=== PATIENT | male | born 1970 | race Caucasian/White ===

== ENCOUNTER → 2016-10-09 | Outpatient (CLI) | payer BC ==
[~2016-10-09] MED LIST: ACET325T96 PO; ALPR1TAB3 PO; ASPI81TA28 PO; ATOR10TA88 PO; BUPR-102 PO; CARV3.122 PO; COEN100C15 PO; Farxiga PO; GLIM2TAB2 PO; GLIM4TAB2 PO; INSDGI SC; LANS30CA12 PO; LIRA18IN; LIRA18IN INJ; LSN20 PO; METF-384 PO; METF1000 PO; NVLGI/PEN SQ; ONDA4TAB10 SL; RIVA1.5T PO; WLL100 PO
== END | disposition home or self-care (01) ==
LOC: C.LABSPEC 10:49
PROVIDERS: ATTEND Family Medicine
DX: N39.0 Urinary tract infection, site not specified (principal)

== ENCOUNTER 2016-10-16 13:07 | Emergency (ER) | payer BC ==
[~2016-10-16] VITALS: Ht 182.9 cm; Wt 176.0 kg
[~2016-10-16 13:07] MED LIST changes: -ALPR1TAB3 PO; -ASPI81TA28 PO; -BUPR-102 PO; -CARV3.122 PO; -COEN100C15 PO; -Farxiga PO; -GLIM4TAB2 PO; -INSDGI SC; -LIRA18IN; -METF1000 PO; -NVLGI/PEN SQ; -ONDA4TAB10 SL; -RIVA1.5T PO
[2016-10-16 13:19] VITALS: TEMP 37.4; Ht 182.9 cm; Wt 176.0 kg
[2016-10-16] MEDS ORDERED: SODIUM CHLORIDE 0.9% 1000ML 1,000 ML IV STA (14:35)
[2016-10-16] MEDS ORDERED: HYDROmorphone INJ 1 MG/ML SYR IV STA (14:35)
[2016-10-16] MEDS ORDERED: KETOROLAC TROMETHAMINE 30 MG/ML VIAL IV STA (14:35)
[2016-10-16] MEDS ORDERED: ONDANSETRON INJ 2 MG/ML 2 ML VIAL IV STA (14:35)
[2016-10-16] MEDS ORDERED: OPTIRAY 320 IV PRN (14:45)
--- NOTE | 2016-10-16 15:00 | DIAGNOSTIC IMAGING REPORT ---
CHEST ONE VIEW PORTABLE CLINICAL HISTORY: Abdominal pain. COMPARISON STUDY: Chest radiograph March 09, 2015. FINDINGS: This exam is compromised by suboptimal penetration related to portable technique and body habitus. Cardiomediastinal silhouette is stable. There is no evidence of pulmonary edema. No consolidation is identified. No pneumothorax or pleural effusion is identified. IMPRESSION: No acute cardiopulmonary findings. Electronically signed by: Benedict Machuca M.D. 10/16/2016 2:59 PM Dictated Date/Time: 10/16/2016 2:58 PM
[2016-10-16 15:09] LABS: BASO % 0.2 %; BASO ABS # 0.02 K/uL (0-0.2); COMPLETE YES; EOS % 0.9 %; HEMATOCRIT 43.7 % (42-52); IG% 0.6 %; LYMPH ABS # 0.64 K/uL (1.2-3.4); MEAN CELL VOLUME 72.5 fL (80-100); MEAN CORPUSCULAR HGB CONC 33.2 g/dl (32-36); MEAN PLATELET VOLUME 9.4 fL (7.4-10.4); MONO % 2.7 %; NEUT % 90.6 %; PLATELET COUNT 267 K/uL (130-400); RED BLOOD COUNT 6.03 M/uL (4.7-6.1); WHITE BLOOD COUNT 12.74 K/uL (4.8-10.8)
[2016-10-16 15:31] LABS: ALT/SGPT 39 U/L (12-78); BLOOD UREA NITROGEN 18 mg/dl (7-18); BUN/CREATININE RATIO 21.4 (10-20); CALCIUM 8.5 mg/dl (8.5-10.1); CARBON DIOXIDE 22 mmol/L (21-32); CHLORIDE 101 mmol/L (98-107); CREATININE 0.83 mg/dl (0.60-1.40); GLUCOSE 239 mg/dl (70-99); POTASSIUM 4.4 mmol/L (3.5-5.1); SODIUM 136 mmol/L (136-145)
[2016-10-16 15:36] LABS: ALB/GLOB RATIO 0.8 (0.9-2); ALKALINE PHOSPHATASE 61 U/L (45-117); AST/SGOT 26 U/L (15-37)
--- NOTE | 2016-10-16 17:29 | EMERGENCY ROOM VISIT NOTE ---
History Report prepared by Maria Guadalupe: Arya Doan Under the Supervision of: Dr. Reynaldo Tapia M.D. First contact with patient: 14:30 Chief Complaint: ABDOMINAL PAIN Stated Complaint: ABD. PAIN Nursing Triage Summary: Abd pain, nausea, has been sick for approx a week. Had an IM Phenergan at [facility] office and sent here. PMH: DM History of Present Illness The patient is a 46 year old male who presents to the Emergency Room with complaints of waxing and waning diffuse abdominal pain beginning a few days ago. He notes having nausea with this abdominal pain. Source of History: patient Onset: a few days ago Position: abdomen Quality: other (diffuse abdominal pain) Timing: waxes/wanes Associated Symptoms: + nausea Review of Systems See HPI for pertinent positives & negatives. A total of 10 systems reviewed and were otherwise negative. Past Medical & Surgical Medical Problems: (1) Benign hypertension (2) Diabetes mellitus Family History Patient reports no known family medical history. Social History Smoking Status: Never Smoker Alcohol Use: none Marital Status: single Housing Status: lives alone Occupation Status: employed Current/Historical Medications Scheduled Atorvastatin (Lipitor), 10 MG PO HS Bupropion HCl (Bupropion HCl), 1 TAB PO BID Glimepiride (Glimepiride), 1 TAB PO BIDM Lansoprazole (Prevacid), 30 MG PO QAM Liraglutide (Victoza), 1.8 MG INJ HS Lisinopril (Lisinopril), 1 TAB PO QAM Metformin Hcl (Glucophage), 1,000 MG PO BID Ondasetron Odt (Zofran Odt), 4 MG SL Q6H Allergies Coded Allergies: Shellfish (Verified Allergy, Severe, SHORTNESS OF BREATH,SWELLING, 10/16/16) Penicillins (Verified Allergy, Unknown, UNKNOWN-WAS YRS AGO-HAS TAKEN AMOXICILLIN WITHOUT PROBLEM, 10/16/16) AMOXICILLIN RECENTLY WAS OKAY Physical Exam Vital Signs Date Time Temp Pulse Resp B/P Pulse Ox O2 Delivery O2 Flow Rate FiO2 10/16/16 18:49 112 19 128/91 95 10/16/16 18:40 112 19 128/91 95 Room Air 10/16/16 16:11 114 16 155/79 95 Room Air 10/16/16 15:47 116 10/16/16 13:19 37.4 109 20 165/105 95 Room Air Physical Exam CONSTITUTIONAL: Moderate painful nauseous distress. Morbidly obese. HEENT: No icterus, moist mucous membranes NECK: No meningismus, trachea is midline. CARDIOVASCULAR: Regular rate, normal perfusion RESPIRATORY: Unlabored breathing. Clear to auscultation. GASTROINTESTINAL: Mildly diffuse abdominal tenderness. GENITOURINARY: No flank tenderness MUSCULOSKELETAL: Full range of motion NEUROLOGIC: No acute gross focal deficits. PSYCHIATRIC: Normal affect SKIN: Normal for ethnicity. Medical Decision & Procedures ER Provider Diagnostic Interpretation: Radiology results as stated below per my review and radiologist interpretation. CHEST ONE VIEW PORTABLE FINDINGS: This exam is compromised by suboptimal penetration related to portable technique and body habitus. Cardiomediastinal silhouette is stable. There is no evidence of pulmonary edema. No consolidation is identified. No pneumothorax or pleural effusion is identified. IMPRESSION: No acute cardiopulmonary findings. Electronically signed by: Benedict Machuca M.D. 10/16/2016 2:59 PM Dictated Date/Time: 10/16/2016 2:58 PM ABDOMEN AND PELVIS CT WITH IV AND ORAL CONTRAST FINDINGS: Lung bases are clear. Mild fatty infiltration of liver. Spleen pancreas are unremarkable. Gallbladder is negative for distention. Kidneys enhance uniformly. No evidence for an obstructing urinary tract calculus. Bowel pattern is nonobstructive. The appendix is normal. IMPRESSION: Fatty infiltration of liver. Otherwise negative CT abdomen and pelvis Electronically signed by: Yadiel Daley M.D. 10/16/2016 5:55 PM Dictated Date/Time: 10/16/2016 5:53 PM Laboratory Results 10/16/16 14:55 Red Blood Count 6.03, Mean Corpuscular Volume 72.5, Mean Corpuscular Hemoglobin 24.0, Mean Corpuscular Hemoglobin Concent 33.2, Mean Platelet Volume 9.4, Neutrophils (%) (Auto) 90.6, Lymphocytes (%) (Auto) 5.0, Monocytes (%) (Auto) 2.7, Eosinophils (%) (Auto) 0.9, Basophils (%) (Auto) 0.2, Neutrophils # (Auto) 11.54, Lymphocytes # (Auto) 0.64, Monocytes # (Auto) 0.34, Eosinophils # (Auto) 0.12, Basophils # (Auto) 0.02 10/16/16 14:55 Test 10/16/16 14:55 White Blood Count 12.74 K/uL (4.8-10.8) Red Blood Count 6.03 M/uL (4.7-6.1) Hemoglobin 14.5 g/dL (14.0-18.0) Hematocrit 43.7 % (42-52) Mean Corpuscular Volume 72.5 fL (80-100) Mean Corpuscular Hemoglobin 24.0 pg (25-34) Mean Corpuscular Hemoglobin Concent 33.2 g/dl (32-36) Platelet Count 267 K/uL (130-400) Mean Platelet Volume 9.4 fL (7.4-10.4) Neutrophils (%) (Auto) 90.6 % Lymphocytes (%) (Auto) 5.0 % Monocytes (%) (Auto) 2.7 % Eosinophils (%) (Auto) 0.9 % Basophils (%) (Auto) 0.2 % Neutrophils # (Auto) 11.54 K/uL (1.4-6.5) Lymphocytes # (Auto) 0.64 K/uL (1.2-3.4) Monocytes # (Auto) 0.34 K/uL (0.11-0.59) Eosinophils # (Auto) 0.12 K/uL (0-0.5) Basophils # (Auto) 0.02 K/uL (0-0.2) RDW Standard Deviation 40.1 fL (36.4-46.3) RDW Coefficient of Variation 15.3 % (11.5-14.5) Immature Granulocyte % (Auto) 0.6 % Immature Granulocyte # (Auto) 0.08 K/uL (0.00-0.02) Anion Gap 13.0 mmol/L (3-11) Est Creatinine Clear Calc Drug Dose 182.0 ml/min Estimated GFR () 121.4 Estimated GFR (Non- 104.8 BUN/Creatinine Ratio 21.4 (10-20) Calcium Level 8.5 mg/dl (8.5-10.1) Total Bilirubin 0.5 mg/dl (0.2-1) Direct Bilirubin < 0.1 mg/dl (0-0.2) Aspartate Amino Transf (AST/SGOT) 26 U/L (15-37) Alanine Aminotransferase (ALT/SGPT) 39 U/L (12-78) Alkaline Phosphatase 61 U/L (45-117) Troponin I < 0.015 ng/ml (0-0.045) Total Protein 7.7 gm/dl (6.4-8.2) Albumin 3.5 gm/dl (3.4-5.0) Globulin 4.2 gm/dl (2.5-4.0) Albumin/Globulin Ratio 0.8 (0.9-2) Lipase 95 U/L (73-393) Labs reviewed by ED physician. Medications Administered Medications (Trade) Dose Ordered Sig/Alfonso Route Start Time Stop Time Status Last Admin Dose Admin Sodium Chloride (Nss 1000ml) 1,000 ml @ 0 mls/hr Q0M STAT IV 10/16/16 14:35 10/16/16 14:40 DC 10/16/16 15:15 999 MLS/HR Ondansetron HCl (Zofran Inj) 4 mg NOW STAT IV 10/16/16 14:35 10/16/16 14:40 DC 10/16/16 15:15 4 MG Ketorolac Tromethamine (Toradol Inj) 30 mg NOW STAT IV 10/16/16 14:35 10/16/16 14:40 DC 10/16/16 15:15 30 MG Hydromorphone HCl (Dilaudid Inj) 1 mg PRN STAT IV 10/16/16 14:35 10/16/16 14:40 DC 10/16/16 15:16 1 MG ECG Indication: abdominal pain Rate (beats per minute): 110 Rhythm: sinus tachycardia Findings: nonspecific-ST abn, no ectopy, other (normal interval) ED Course 1430: Past medical records reviewed. The patient was evaluated in room B11A. A complete history and physical examination was performed. 1435: Ordered Dilaudid Inj 1 mg IV, Toradol Inj 30 mg IV, Zofran Inj 4 mg IV, Zofran Inj 4 mg IV, and NSS 1,000 ml @ 0 mls/hr Wide Open IV. 1830: Upon reexamination the patient is doing well. I discussed results and treatment plan with the patient. He verbalizes agreement and understanding. The patient is ready for discharge. Medical Decision Differential diagnosis: Etiologies such as appendicitis, diverticulitis, PUD, biliary pathology, UTI, pancreatitis, obstruction, mesenteric ischemia, aortic pathology, infections, inflammatory bowel disease, renal colic, as well as others were entertained. 46-year-old presents to the emergency department for evaluation of diffuse abdominal discomfort today with nausea. He appears unwell but nontoxic and in mild distress. Screening evaluations including lab CAT scan negative for acute disease. Appeared comfortable on reexamination prior to discharge. Rx Zofran. Impression Primary Impression: Abdominal pain Scribe Attestation The scribe's documentation has been prepared under my direction and personally reviewed by me in its entirety. I confirm that the note above accurately reflects all work, treatment, procedures, and medical decision making performed by me. Departure Information Dispostion Home / Self-Care Prescriptions Ondasetron Odt (ZOFRAN ODT) 4 Mg Tab 4 MG SL Q6H for Nausea, #20 TAB Prov: Reynaldo Tapia MD 10/16/16 Referrals Italo López M.D. (PCP) Patient Instructions Abdominal Pain - [facility], [facility]
--- NOTE | 2016-10-16 17:57 | DIAGNOSTIC IMAGING REPORT ---
ABDOMEN AND PELVIS CT WITH IV AND ORAL CONTRAST CT DOSE: 2313.83 mGy.cm HISTORY: Pain abdominal pain TECHNIQUE: Multiaxial CT images of the abdomen and pelvis were performed following the use of intravenous and oral contrast. COMPARISON STUDY: 07/29/2013 FINDINGS: Lung bases are clear. Mild fatty infiltration of liver. Spleen pancreas are unremarkable. Gallbladder is negative for distention. Kidneys enhance uniformly. No evidence for an obstructing urinary tract calculus. Bowel pattern is nonobstructive. The appendix is normal. IMPRESSION: Fatty infiltration of liver. Otherwise negative CT abdomen and pelvis Electronically signed by: Yadiel Daley M.D. 10/16/2016 5:55 PM Dictated Date/Time: 10/16/2016 5:53 PM
[2016-10-16] MEDS ORDERED: ONDA4TAB10 SL (18:32)
[2016-10-16 18:49] VITALS: BP 128/91; PULSE 112; O2SAT 95
[2016-10-23] MEDS ORDERED: METF1000 PO (11:19)
[2016-11-28] MEDS ORDERED: GLIM4TAB2 PO (06:53)
[2016-11-28] MEDS ORDERED: METF-384 PO (06:53)
[2016-11-28] MEDS ORDERED: INSDGI SC (06:53)
[2016-11-28] MEDS ORDERED: CARV3.122 PO (06:53)
[2016-11-28] MEDS ORDERED: LIRA18IN (06:53)
[2016-11-28] MEDS ORDERED: Farxiga PO (06:53)
[2016-11-28] MEDS ORDERED: ASPI81TA28 PO (07:40)
[2016-11-28] MEDS ORDERED: COEN100C15 PO (07:40)
== END 2016-10-16 18:51 | disposition home or self-care (01) ==
LOC: C.EDB 13:20
DX: R10.9 Unspecified abdominal pain (principal); R11.0 Nausea; R00.0 Tachycardia, unspecified; I10 Essential (primary) hypertension; E11.9 Type 2 diabetes mellitus without complications; Z79.84 Long term (current) use of oral hypoglycemic drugs; Z79.899 Other long term (current) drug therapy; Z88.0 Allergy status to penicillin; Z91.018 Allergy to other foods

== ENCOUNTER → 2016-10-17 | Outpatient (CLI) | payer BC ==
[~2016-10-17] MED LIST changes: -ACET325T96 PO; +ALPR1TAB3 PO; +ASPI81TA28 PO; +BUPR-102 PO; +CARV3.122 PO; +COEN100C15 PO; +Farxiga PO; +GLIM4TAB2 PO; +INSDGI SC; +LIRA18IN; +METF1000 PO; +NVLGI/PEN SQ; +ONDA4TAB10 SL; +RIVA1.5T PO
[2016-10-17 19:06] LABS: BASO % 0.2 %; BASO ABS # 0.02 K/uL (0-0.2); COMPLETE YES; EOS % 0.5 %; HEMATOCRIT 40.3 % (42-52); IG% 0.7 %; LYMPH % 12.1 %; LYMPH ABS # 1.03 K/uL (1.2-3.4); MEAN CELL VOLUME 73.3 fL (80-100); MEAN CORPUSCULAR HEMOGLOBIN 23.8 pg (25-34); MEAN CORPUSCULAR HGB CONC 32.5 g/dl (32-36); MEAN PLATELET VOLUME 9.5 fL (7.4-10.4); MONO % 2.4 %; NEUT % 84.1 %; PLATELET COUNT 219 K/uL (130-400); WHITE BLOOD COUNT 8.48 K/uL (4.8-10.8)
[2016-10-17 19:47] LABS: ALB/GLOB RATIO 0.8 (0.9-2); ALKALINE PHOSPHATASE 82 U/L (45-117); ALT/SGPT 32 U/L (12-78); AST/SGOT 23 U/L (15-37); BLOOD UREA NITROGEN 14 mg/dl (7-18); BUN/CREATININE RATIO 15.3 (10-20); CALCIUM 7.7 mg/dl (8.5-10.1); CARBON DIOXIDE 24 mmol/L (21-32); CHLORIDE 101 mmol/L (98-107); CREATININE 0.91 mg/dl (0.60-1.40); GLUCOSE 356 mg/dl (70-99); POTASSIUM 4.5 mmol/L (3.5-5.1); SODIUM 135 mmol/L (136-145)
== END | disposition home or self-care (01) ==
LOC: C.LAB 18:05
PROVIDERS: ATTEND Family Medicine
DX: R94.31 Abnormal electrocardiogram [ECG] [EKG] (principal)

== ENCOUNTER → 2016-10-18 | Outpatient (CLI) | payer BC ==
[~2016-10-18] MED LIST changes: +OPTIRAY 320 IV PRN
--- NOTE | 2016-10-18 14:00 | DIAGNOSTIC IMAGING REPORT ---
CT ANGIOGRAM OF THE CHEST CLINICAL HISTORY: Shortness of breath, positive d-dimer, DVT. COMPARISON STUDY: Chest x-ray dated to 70 TECHNIQUE: Following the IV administration of 104 mL of Optiray-320, CT angiogram of the thorax was performed from the thoracic inlet to the lung bases utilizing the pulmonary embolus protocol. Images are reviewed in the axial, sagittal, and coronal planes. IV contrast was administered without complication. MIP imaging was performed. CT DOSE: 664.66 mGy.cm FINDINGS: No pathologically enlarged axillary mediastinal or hilar lymph nodes were visualized. There was no evidence of thoracic aortic dilatation. Pulmonary arterial opacification is somewhat limited due to the patient's large body habitus. There are no pulmonary artery filling defects to indicate acute pulmonary embolism. There are few tiny pulmonary nodules, several of which are calcified. No pleural effusions are visualized. There was no evidence of focal pulmonary consolidation. IMPRESSION: 1. Somewhat limited pulmonary arterial opacification due to the patient's large body habitus. No central emboli identified. Correlation with serial leg ultrasonography would seem prudent. 2. No evidence of focal pulmonary consolidation 3. No evidence of pathologic adenopathy 4. Hepatic steatosis Electronically signed by: Tay Nunez M.D. 10/18/2016 1:59 PM Dictated Date/Time: 10/18/2016 1:48 PM
--- NOTE | 2016-10-18 14:28 | DIAGNOSTIC IMAGING REPORT ---
BILATERAL LOWER EXTREMITY VENOUS DOPPLER CLINICAL HISTORY: Dyspnea. Elevated d-dimer. COMPARISON STUDY: No previous studies for comparison. TECHNIQUE: Sonography of the deep venous system of the bilateral lower extremities was performed. Compression and augmentation were evaluated. FINDINGS: The bilateral common femoral, superficial femoral and popliteal veins were compressible. Augmentation was normal. Flow was shown within the deep calf vessels. IMPRESSION: No evidence of deep venous thrombus within the bilateral lower extremities. Electronically signed by: Benedict Machuca M.D. 10/18/2016 2:26 PM Dictated Date/Time: 10/18/2016 2:26 PM
== END | disposition home or self-care (01) ==
LOC: C.CTS 13:00
PROVIDERS: ATTEND Family Medicine
DX: I26.99 Other pulmonary embolism without acute cor pulmonale (principal); R06.02 Shortness of breath; K76.0 Fatty (change of) liver, not elsewhere classified

== ENCOUNTER 2016-10-22 14:48 | Inpatient (IN) | payer BC ==
[~2016-10-22] VITALS: Ht 182.9 cm; Wt 170.3 kg
[~2016-10-22 14:48] MED LIST changes: -ALPR1TAB3 PO; -ASPI81TA28 PO; -BUPR-102 PO; -CARV3.122 PO; -COEN100C15 PO; -Farxiga PO; -GLIM4TAB2 PO; -INSDGI SC; -LIRA18IN; -METF1000 PO; -NVLGI/PEN SQ; -RIVA1.5T PO
[2016-10-22 16:01] VITALS: BP 119/87; PULSE 80; TEMP 36.8; O2SAT 99; BMI 50.3; BMI 51.9
[2016-10-22] MEDS ORDERED: ALPR1TAB3 PO (16:08)
[2016-10-22] MEDS ORDERED: RIVA1.5T PO (16:08)
[2016-10-22] MEDS ORDERED: NVLGI/PEN SQ (16:08)
[2016-10-22] MEDS ORDERED: BUPR-102 PO (16:08)
[2016-10-22] MEDS ORDERED: NITROGLYCERIN 0.4 MG SL PER TAB CHARGE SL PRN (16:45)
--- NOTE | 2016-10-22 17:04 | History and Physical ---
History & Physical Date & Time of Service: Oct 22, 2016 at 16:04 Chief Complaint: Unstable Angina Primary Care Physician: Italo López M.D. History of Present Illness 46 yo M pmh KEVIN not using a CPAP, HTN, T2DM recently started on insulin for uncontrolled hyperglycemia, hypercholesterolemia, and morbid obesity sent in from his PCP (Dr. López) for left-sided chest pain radiating to left should and associated with SOB, diaphoresis, palpitation. Patient was recently in the ED for abdominal pain and nausea on 10/16/16 with an unrevealing work-up that included unremarkable CXR, negative CTA of chest and venous dopplers. EKG at that time revealed tachycardia with an age indeterminate anterolateral TX. Patient was subsequently discharged from the ED and followed up at his PCP the next day where a Ddimer was found to be elevated. He was then started on Xarelto. Since then, he has had worsening SOB. Last night, while walking around the grocery store, he had exertional dyspnea requiring frequent stops. He also experienced left-sided chest pain radiating to left shoulder associated with sob , headache, diaphoresis and palpitation. He also had CPs all throughout the day today, at its worst 5/10, intermittent, nagging heaviness. He is chest-pain free during the exam but does report SOB. Otherwise, no further abdominal pain. He did report one episode of blood per rectum last week but attributed to his hemorrhoids. No urinary symptoms. Past Medical/Surgical History PMH: T2DM x 10 years recently started on insulin, HTN x10 years, KEVIN (unable to tolerate CPAP), anxiety, dyslipidemia PSh: none Medical Problems: (1) Benign hypertension Status: Chronic (2) Diabetes mellitus Status: Chronic Family History Patient reports no known family medical history. FHx: - maternal grandfather: [place] in 60s, DM - Mother: breast and thyroid cancer - Father: DM, HTN Social History Smoking Status: Never Smoker Alcohol Use: none Drug Use: none Marital Status: single Occupational Status: employed Immunizations History of Influenza Vaccine: Yes Allergies Coded Allergies: Shellfish (Verified Allergy, Severe, SHORTNESS OF BREATH,SWELLING, 10/16/16) Penicillins (Verified Allergy, Unknown, UNKNOWN-WAS YRS AGO-HAS TAKEN AMOXICILLIN WITHOUT PROBLEM, 10/16/16) AMOXICILLIN RECENTLY WAS OKAY Home Medications Scheduled Alprazolam (Xanax), 1 MG PO HS Atorvastatin (Lipitor), 10 MG PO HS Bupropion Hcl (Smoking [place] (Bupropion Hcl Sr), 1 TAB PO BID Glimepiride (Glimepiride), 1 TAB PO BIDM Insulin Aspart (Novolog Flexpen), 12 UNITS SQ TID Lansoprazole (Prevacid), 30 MG PO QAM Lisinopril (Lisinopril), 1 TAB PO QAM Rivaroxaban (Xarelto), 15 MG PO BID Review of Systems ROS as per HPI. Rest of ROS negative. Physical Exam NAD, AOx3, intermittently stops conversation to catch breath distant heart sounds due to body habitus, S1 S2 noted, no murmurs appreciable ctab no wheezing/rhonchi/rales appreciated, tattoo noted in back abd obese, soft, nt/nd, +BS, unable to assess for organomegaly with body habitus No LE edema CN 2-12 grossly intact without facial drooping or focal deficits Impression Assessment and Plan 1. Chest pain - typical, possibly UA - serial CE - EKG now - cbc, cmp, mag - cardiology consult - 2de - O2 supplementation - starting heparin drip 2. T2DM - hold outpatient meds - has been uncontrolled - will start on insulins, glycemic consult 3. HTN - monitor vitals - cont lisinopril for now 4. Dyslipidemia - resume atorvastatin Level of Care Telemetry Resuscitation Status FULL RESUSCITATION VTE Prophylaxis VTE Risk Assessment Done? Y/N: Yes
[2016-10-22] MEDS ORDERED: PHARMACY GLYCEMIC MGMT CONSULT SCH (17:24)
[2016-10-22 17:37] LABS: BASO % 0.6 %; BASO ABS # 0.06 K/uL (0-0.2); EOS % 1.9 %; HEMATOCRIT 38.6 % (42-52); IG% 1.5 %; LYMPH % 28.1 %; MEAN CELL VOLUME 70.8 fL (80-100); MEAN CORPUSCULAR HEMOGLOBIN 23.5 pg (25-34); MEAN PLATELET VOLUME 8.8 fL (7.4-10.4); MONO % 5.5 %; NEUT % 62.4 %; PLATELET COUNT 267 K/uL (130-400); RED BLOOD COUNT 5.45 M/uL (4.7-6.1); WHITE BLOOD COUNT 9.61 K/uL (4.8-10.8)
[2016-10-22] MEDS ORDERED: DEXTROSE 50% 50 ML SYR IV PRN (17:45)
[2016-10-22] MEDS ORDERED: GLUCAGON FOR INJ 1 MG VIAL SQ PRN (17:45)
[2016-10-22] MEDS ORDERED: GLUCOSE 40% GEL 15 GM TUBE PO PRN (17:45)
[2016-10-22] MEDS ORDERED: GLUCOSE 10 TABS/TUBE PO PRN (17:45)
[2016-10-22 17:48] LABS: COMPLETE YES; MEAN CORPUSCULAR HGB CONC 33.2 g/dl (32-36)
[2016-10-22 17:51] LABS: PROTHROMBIN TIME (PATIENT) 10.8 SECONDS (9.0-12.0)
[2016-10-22] MEDS: INSULIN ASPART 100 UNITS/ML 3 ML PEN SC SCH ×2 (18:00→21:04)
[2016-10-22 18:06] LABS: ALB/GLOB RATIO 0.9 (0.9-2); ALKALINE PHOSPHATASE 80 U/L (45-117); ALT/SGPT 32 U/L (12-78); AST/SGOT 15 U/L (15-37); BLOOD UREA NITROGEN 13 mg/dl (7-18); BUN/CREATININE RATIO 14.5 (10-20); CALCIUM 8.6 mg/dl (8.5-10.1); CARBON DIOXIDE 24 mmol/L (21-32); CHLORIDE 103 mmol/L (98-107); CREATININE 0.87 mg/dl (0.60-1.40); GLUCOSE 278 mg/dl (70-99); MAGNESIUM 1.8 mg/dl (1.8-2.4); POTASSIUM 3.7 mmol/L (3.5-5.1); SODIUM 139 mmol/L (136-145)
[2016-10-22] MEDS ORDERED: HEPARIN IV BOLUS 9,000 UNIT in SYRINGE 0 ML IV ONE (19:45)
[2016-10-22 19:50] VITALS: BP 170/84; PULSE 72; TEMP 36.8; O2SAT 96
--- NOTE | 2016-10-22 19:54 | DIAGNOSTIC IMAGING REPORT ---
TWO VIEW CHEST CLINICAL HISTORY: Dyspnea. FINDINGS: PA and lateral chest radiographs are compared to study dated 10/16/16 and correlated with chest CT dated 10/18/16. The examination is degraded by large body habitus. The cardiomediastinal silhouette is unremarkable. The lungs and pleural spaces are clear. There is no pneumothorax. The skeletal structures appear osteopenic. The bony thorax is grossly intact. IMPRESSION: Cardiomegaly with no acute cardiopulmonary abnormality. There has been no significant change from recent prior studies. Electronically signed by: Jacek Covington M.D. 10/22/2016 7:52 PM Dictated Date/Time: 10/22/2016 7:50 PM
[2016-10-22] MEDS: HEPARIN 25,000 UNIT/500ML D5W 500 ML IV PRN (19:55)
[2016-10-22] MEDS ORDERED: ATORVASTATIN 10 MG TAB PO SCH (21:00)
[2016-10-22] MEDS ORDERED: ALPRAZOLAM 0.5 MG TAB PO SCH (21:00)
[2016-10-23] MEDS: INSULIN ASPART 100 UNITS/ML 3 ML PEN SC SCH ×3 (00:24→12:00)
[2016-10-23 00:37] VITALS: BP 164/94; PULSE 76; TEMP 37.1; O2SAT 94
[2016-10-23 02:01] LABS: PARTIAL THROMBOPLASTIN RATIO 1.3
[2016-10-23] MEDS ORDERED: HEPARIN IV BOLUS 9,000 UNIT in SYRINGE 0 ML IV ONE (02:45)
[2016-10-23] MEDS: HEPARIN 25,000 UNIT/500ML D5W 500 ML IV PRN ×2 (03:05→06:25)
[2016-10-23 03:55] VITALS: BP 112/58; PULSE 73; TEMP 36.6; O2SAT 97
[2016-10-23] MEDS ORDERED: PERFLUTREN LIPID MICROSPHERE (DEFINITY) IV ONE (06:50)
[2016-10-23 07:17] LABS: ESTIMATED AVERAGE GLUCOSE 220 mg/dl; HA1C FLAG Normal (Normal)
[2016-10-23 08:10] VITALS: BP 128/66; PULSE 82; TEMP 36.6; O2SAT 98
[2016-10-23] MEDS ORDERED: PANTOprazole SOD 40 MG TAB PO SCH (09:00)
[2016-10-23] MEDS ORDERED: INSULIN GLARGINE SOLOSTAR 100 UNITS/ML 3 ML PEN SC SCH (09:00)
[2016-10-23] MEDS ORDERED: LISINOPRIL 20 MG TAB PO SCH (09:00)
--- NOTE | 2016-10-23 09:02 | ECHOCARDIOGRAM REPORT ---
*NOTICE TO RECEIVING DEMOCRAT AGENCY This information is strictly Confidential and protected under [place] law. [place] law prohibits you from making any further disclosure of this information unless further disclosure is expressly permitted by the written consent of the person to whom it pertains or is authorized by law. A general authorization for the release of medical or other information is not sufficient for this purpose. Hospital accepts no responsibility if the information is made available to any other person, INCLUDING THE PATIENT. Interpretation Summary * Name: SARAH GALLAGHER Study Date: 10/23/2016 06:28 AM BP: 112/58 mmHg * Patient Location: .2E\S\E210\S\1 HR: 73 * : 1970 (M/d/yyyy) Gender: Male Height: 72 in * Age: 46 yrs Ethnicity: NC Weight: 381 lb * Ordering Physician: Cass Chavez * Referring Physician: DANYEL * Performed By: Isi Meehan RDCS * * Reason For Study: CHEST PAIN * BSA: 2.8 m2 * History: CHEST PAIN * -- Conclusions -- * 1. Severely technically limited study due to body habitus. * 2. Grossly normal LV size. Low normal LV function. EF 45-50%. Regional wall motion abnormalities can not be excluded due to limited imaging. * 3. RV not well visualized. Bordeline RV and RA dilation. Grossly normal RV function. * 4. No significant valvular stenosis/regurgitation. * 5. No prior studies for comparison. Procedure Details * A contrast injection of Definity was performed to improve assessment of LV function. * Contrast was injected into an intravenous site in the right arm. * One vial of Definity ultrasound contrast was diluted in normal saline to a total volume of 10 ml. A total of '3' ml of solution was administered during imaging. * Lot # [id number] of Definity utilized for procedure. * Expiration date 1 OCT 27. * The attending nurse who injected the contrast agent was MARY PHIPPS. Left Ventricle * The left ventricle is not well visualized. * The left ventricle is grossly normal size. * Ejection Fraction = 45-50%. * Regional wall motion abnormalities cannot be excluded due to limited visualization. Right Ventricle * The right ventricle is not well visualized. * Borderline right ventricular enlargement. * The right ventricular systolic function is qualitatively normal. Atria * The left atrial size is normal. * Right atrium not well visualized. * Borderline right atrial enlargement. * No ASD detected; PFO is not assessed. Mitral Valve * The mitral valve is not well visualized. * Significant mitral regurgitation is absent. Tricuspid Valve * The tricuspid valve is not well visualized. * Significant tricuspid regurgitation is absent. Aortic Valve * The aortic valve is not well visualized. * No hemodynamically significant valvular aortic stenosis. * There is no significant aortic regurgitation. Pulmonic Valve * The pulmonary valve is inadequately visualized, but the Doppler data is adequate for interpretation. * Pulmonic stenosis is absent. * There is no pulmonic valvular regurgitation. Great Vessels * The aortic root and proximal ascending aorta are normal sized. Pericardium/Pleural * There is no pericardial effusion. MMode 2D Measurements and Calculations IVSd 1.1 cm IVSs 1.3 cm LVIDd 4.0 cm LVIDs 2.9 cm LVPWd 1.3 cm IVS/LVPW 0.85 FS 27.6 % EDV(Teich) 72.0 ml ESV(Teich) 33.1 ml EF(Teich) 54.1 % EDV(cubed) 66.3 ml ESV(cubed) 25.2 ml EF(cubed) 62.0 % % IVS thick 14.5 % LV mass(C)d 170.5 grams LV mass(C)dI 60.9 grams/m\S\2 SV(Teich) 38.9 ml SI(Teich) 13.9 ml/m\S\2 SV(cubed) 41.1 ml SI(cubed) 14.7 ml/m\S\2 LVAd ap4 51.0 cm\S\2 LVLd ap4 9.8 cm EDV(MOD-sp4) 210.7 ml EDV(sp4-el) 225.6 ml LVAs ap4 36.7 cm\S\2 LVLs ap4 8.8 cm ESV(MOD-sp4) 129.1 ml ESV(sp4-el) 130.0 ml EF(MOD-sp4) 38.7 % EF(sp4-el) 42.4 % LVAd ap2 36.5 cm\S\2 LVLd ap2 10.2 cm EDV(MOD-sp2) 104.7 ml EDV(sp2-el) 111.3 ml LVAs ap2 25.8 cm\S\2 LVLs ap2 9.2 cm ESV(MOD-sp2) 60.0 ml ESV(sp2-el) 61.6 ml EF(MOD-sp2) 42.7 % EF(sp2-el) 44.6 % LVLd %diff 3.7 % EDV(MOD-bp) 151.6 ml LVLs %diff 4.1 % ESV(MOD-bp) 89.8 ml EF(MOD-bp) 40.8 % SV(MOD-sp4) 81.6 ml SI(MOD-sp4) 29.1 ml/m\S\2 SV(MOD-sp2) 44.7 ml SI(MOD-sp2) 16.0 ml/m\S\2 SV(MOD-bp) 61.8 ml SI(MOD-bp) 22.1 ml/m\S\2 SV(sp4-el) 95.6 ml SI(sp4-el) 34.1 ml/m\S\2 SV(sp2-el) 49.6 ml SI(sp2-el) 17.7 ml/m\S\2 Doppler Measurements and Calculations MV E max adriana 82.5 cm/sec MV A max adriana 75.2 cm/sec MV E/A 1.1 MV dec time 0.23 sec Ao V2 max 121.6 cm/sec Ao max PG 5.9 mmHg Ao max PG (full) 2.0 mmHg LV V1 max PG 3.9 mmHg LV V1 max 98.5 cm/sec
--- NOTE | 2016-10-23 10:15 | Clinical Documentation Query ---
ARTHUR Oliveira : CLINICAL DOCUMENTATION QUERY Patient is a 46 year old male presenting with chest pain radiating to left shoulder associated with SOB, diaphoresis, and palpitations. Assessment includes "UA". Unfortunately, this abbreviation in this institution is only used (per policy) to mean urinalysis. Please clarify as clinically appropriate. Thank you. In your clinical opinion is this patient being managed for: (x ) (Possible/Suspected) Unstable angina ( ) Other explanation of clinical findings (Please Explain) ( ) Unable to determine (Please Define) ( ) Need to Discuss ( ) Not Agree The medical record reflects the following clinical findings, treatment, and risk factors. Clinical Indicators: As above Treatment: Telemetry, serial cardiac enzymes, EKG, cardiology consultation, echocardiogram, heparin infusion Risk Factors: Age, gender, uncontrolled type 2 DM, hyperlipidemia, hypertension Please clarify and document your clinical opinion in the progress notes and discharge summary. Terms such as "probable", "suspected", "likely", "questionable", "possible", or "still to be ruled out" are acceptable. IF IN AGREEMENT, YOU MUST DOCUMENT ABOVE DIAGNOSTIC STATEMENT IN DAILY PROGRESS NOTES AND DISCHARGE SUMMARY. This document is not part of the patient's record. Thank You, Arya Watson, MARY [phone]
[2016-10-23 10:17] LABS: PARTIAL THROMBOPLASTIN RATIO 1.6
[2016-10-23 10:30] VITALS: Ht 182.9 cm; Wt 170.3 kg
--- NOTE | 2016-10-23 10:41 | CARDIOLOGY CONSULTATION ---
DATE OF CONSULTATION: 10/23/2016 CONSULTATION REQUESTED BY: Dr. Medina. PRIMARY CARE PHYSICIAN: Dr. Italo López. REASON FOR CONSULTATION: Chest pain, question unstable angina. HISTORY OF PRESENT ILLNESS: Mr. Monroy is a 46-year-old man with a history of obstructive sleep apnea, hypertension, type 2 diabetes, hyperlipidemia and morbid obesity who was admitted yesterday from his primary care office in the setting of left chest pain. Initial concern was for potential unstable angina and cardiology consulted for further management recommendations. The patient has no prior cardiac history. Denies ever having any prior cardiac testing including stress test or catheterization in the past. He states that he had been in his usual state of health up until about 2 weeks ago when developed upper respiratory illness symptoms with associated nasal congestion, ear fullness and productive cough of green sputum. He was treated with a course of amoxicillin by his primary care physician, with slow resolution of these symptoms. Gradually over the same time, the patient notes mild shortness of breath with exertion, as well as chest discomfort, most notably when he takes a deep breath in or after he has been exerting himself and feels out of breath. The chest pain is described as sharp, left-sided, occasional radiating to his shoulder. Denies any associated nausea, vomiting, or palpitations. Due to patient's chest symptoms, he has been seen multiple times by his primary care physician. On October 16 presented to the ED in the setting of some associated abdominal pain and nausea. At that time, chest x-ray was negative. EKG was questionable for age indeterminate anterior lateral CA. He subsequently returned to his primary care physician's office last week with ongoing pleuritic chest pain. D-dimer was positive and due to concern for potential PE he was started on Xarelto empirically. Venous Doppler was negative and CTA showed no evidence of PE. A repeat venous Doppler yesterday again was negative. Due to EKG changes and ongoing pain, he was referred for further inpatient evaluation. Overnight, the patient states he has had no significant chest pain. Again, has some mild pain when he takes a deep breath in. His initial EKG and subsequent EKG this morning showed no dynamic ST changes. He had a troponin checked x3 overnight, which were negative, and telemetry was unremarkable. PAST MEDICAL HISTORY: 1. Type 2 diabetes for 10 years, recently started insulin. 2. Hypertension. 3. Obstructive sleep apnea, unable to tolerate CPAP. 4. Anxiety. 5. Dyslipidemia. SOCIAL HISTORY: Denies any tobacco or heavy alcohol use. Denies any illicit drugs. Currently works for the [employer] with employment for folks with disability. FAMILY HISTORY: Maternal grandfather had diabetes and an CA in his 60s. Both his mother and his father have diabetes, but no history of premature coronary artery disease or sudden cardiac . ALLERGIES: ALLERGIC TO SHELLFISH, PENICILLIN. HOME MEDICATIONS: Include Lipitor 10, bupropion, glimepiride, insulin, Prevacid, lisinopril, and Xarelto 15 mg b.i.d. REVIEW OF SYSTEMS: Ten point review of systems was completed and otherwise negative unless stated in HPI. PHYSICAL EXAMINATION: VITAL SIGNS: Temperature 36.6, pulse 82, blood pressure 128/66. He is satting 98% on room air. GENERAL: The patient appears comfortable in no acute distress. He is morbidly obese. HEENT: Sclerae anicteric. Oropharynx is clear. Mucous membranes are moist. NECK: Supple. PE could not be assessed. LUNGS: Clear to auscultation bilaterally. CARDIAC: He has distant heart sounds, but regular rate and rhythm, and no appreciable murmurs, rubs or gallops. ABDOMEN: Obese, soft, nontender with positive bowel sounds. EXTREMITIES: Warm. He has intact distal pulses and no significant lower extremity edema. SKIN: He has multiple tattoos, but no rashes or lesions. NEUROLOGIC: Cranial nerves II-XII are grossly intact. The remainder of the exam is nonfocal. PSYCHIATRIC: He is alert and oriented x3. His mood and affect is appropriate. DATA: White blood cell count 9.6, hemoglobin 12.8, platelets 267. INR is 1.3. Repeat D-dimer yesterday was negative at less than 190. Troponins have been negative x3, less than 0.015. A1c was 9.3. Sugars have been running in the 220s to 270s. Initial sodium 137, potassium 3.7, BUN 13, creatinine of 0.9. LFTs within normal limits except for an albumin of 3.2 and his ProBNP was normal at 112. IMAGING: Chest x-ray on admission showed cardiomegaly with no acute cardiopulmonary process. On additional imaging venous duplex on October 22 showed no evidence of DVT in his bilateral lower extremities. CTA on 10/18/2016 showed a somewhat limited pulmonary artery opacification due to habitus. No central emboli identified. No evidence of focal pulmonary consolidation, no pathologic adenopathy. Abdominal CT scan on October 11 showed fatty infiltration of the liver, otherwise normal abdominal CT of the abdomen and pelvis. IMPRESSION AND PLAN: 1. Atypical chest pain. 2. Recent suspected viral illness. 3. Poorly controlled diabetes. 4. Hypertension. 5. Suspected pulmonary embolism. 6. Obstructive sleep apnea. The patient here with 2 weeks of atypical chest pain in the setting of recent viral illness. EKG and cardiac enzymes reassuring. Suspicion that current pain represents an acute coronary syndrome is low. However, in the setting of the patient's cardiac risk factors, risk of coronary artery disease is low- intermediate and in that setting feel that further risk stratification is warranted. As no evidence of acute coronary syndrome at present, this workup can be completed as an outpatient. Have reviewed patient's echocardiogram today. Imaging it limited, but left ventricular function appears grossly normal. Would recommend a nuclear stress test as an outpatient. Otherwise, would continue to treat patient's modifiable atherosclerotic cardiovascular disease risk factors. Further treatment of possible pulmonary embolism per primary team and Dr. López. The patient can follow up with me pending results of nuclear study. From a cardiac standpoint, okay for discharge today. WILD
--- NOTE | 2016-10-23 10:49 | Pharmacy Progress Note ---
Glycemic Control Intl Consult Date of Service Oct 23, 2016. Scope Glycemic Pharmacist consulted by Dr Chavez on 10/22/16 for glycemic control and to write orders per [facility] ED inpatient glycemic control protocol Objective Weight (Kilograms): 170.300 Accuchecks BSG (last 24hrs): Test 10/22/16 17:29 10/22/16 17:39 10/22/16 20:35 10/22/16 23:44 Random Glucose 278 mg/dl (70-99) Bedside Glucose 259 mg/dl (70-99) 225 mg/dl (70-99) 245 mg/dl (70-99) Test 10/23/16 06:24 Bedside Glucose 270 mg/dl (70-99) Laboratory Data (last 24hrs) Test 10/22/16 17:29 10/23/16 04:50 Anion Gap 12.0 mmol/L BUN/Creatinine Ratio 14.5 Blood Urea Nitrogen 13 mg/dl Creatinine 0.87 mg/dl Potassium Level 3.7 mmol/L Sodium Level 139 mmol/L White Blood Count 9.61 K/uL Red Blood Count 5.45 M/uL Hemoglobin 12.8 g/dL Hematocrit 38.6 % Mean Corpuscular Volume 70.8 fL Mean Corpuscular Hemoglobin 23.5 pg Mean Corpuscular Hemoglobin Concent 33.2 g/dl Platelet Count 267 K/uL Mean Platelet Volume 8.8 fL Neutrophils (%) (Auto) 62.4 % Lymphocytes (%) (Auto) 28.1 % Monocytes (%) (Auto) 5.5 % Eosinophils (%) (Auto) 1.9 % Basophils (%) (Auto) 0.6 % Neutrophils # (Auto) 6.00 K/uL Lymphocytes # (Auto) 2.70 K/uL Monocytes # (Auto) 0.53 K/uL Eosinophils # (Auto) 0.18 K/uL Basophils # (Auto) 0.06 K/uL Hemoglobin A1c 9.3 % HbA1c Test 10/23/16 04:50 Hemoglobin A1c 9.3 % (4.5-5.6) H Recent Pertinent Medications Outpatient Anti-diabetic Regimen: * Amaryl 2mg PO BIDM * NovoLog 12 units SQ TIDM * Metformin (currently on hold from recent CT) The patient is currently receiving: * Basal insulin: None currently ordered * Correctional Insulin: Novolog Correction per scale ACHS Goal Range: Low 110 mg/dL - High 150 mg/dL Correction Factor: 20 mg/dL/unit * Prandial insulin: Per carb ratio of 1 unit per 7 grams CHO consumed * Oral Agents: on Hold for Admission Risk Factors for Insulin Resistance: * IVF * baseline insulin resistance per elevated A1c Risk Factors for Insulin Sensitivity: * Diet/NPO Assessment & Plan ASSESSMENT: * 46yo T2DM male with poorly controlled diabetes per recent A1c. Pt recently started on prandial insulin which has helped to bring his A1c down from 10.2% in Jul 2016 to 9.3% today. * Pt NPO, holding PO antidiabetic medications for inpatient use * Basal insulin not started on admission d/t NPO, but now BSGs elevated, AM fasting BSG = 270mg/dl this morning. Will need basal insulin despite NPO * Will utilize weight based dosing for basal insulin naive patient. Will order dosing as range based dosing per BSG to help prevent hypo/hyperglycemia with changing factors for insulin resistance/sensitivity. * ADA & AACE recommend a goal blood sugar range 140-180 mg/dl for the majority of critically ill & non-critically ill patients. However, more stringent targets may be selected in individual cases. Will utilize more stringent target of 110-150mg/dl based on age. PLAN FOR INPATIENT GLYCEMIC CONTROL: * Hold outpatient oral diabetes medications * Basal insulin with LANTUS SQ BID - dosing based on BSG * If BSG below 120mg/dl --> Do not give Lantus * If BSG 120-179mg/dl --> Give Lantus 20 units * If BSG 180mg/dl or above --> Give Lantus 30 units * Correctional Insulin with NOVOLOG per scale ACHS or Q6hrs while NPO * Goal Range: Low 110 mg/dL - High 150 mg/dL * Correction Factor: 15 mg/dL/unit * Nutritional / Prandial insulin per carb ratio of 1 unit per 6 grams CHO consumed Looking ahead to discharge: * A1c still elevated despite starting prandial insulin, although it is trending in the right direction * Recommend stopping Amaryl as this is a therapeutic duplication with NovoLog * Recommend resuming metformin, was held as an outpatient d/t recent contrast. Able to resume metformin 48hrs after contrast * Recommend starting basal insulin with Lantus 30 units SQ daily. Work with PCP to titrate to goal fasting BSG. * Please note that the plan above was derived based on current level of insulin resistance and hospital stress. These recommendations are appropriate for inpatient admission only. Plan of care upon discharge will need to be reassessed to avoid potential outpatient hypo/hyperglycemia. Thank you.
[2016-10-23] MEDS ORDERED: METF1000 PO (11:19)
--- NOTE | 2016-10-23 11:21 | Discharge Instructions ---
Discharge Instructions Admission Reason for Admission: Unstable Angina Discharge Discharge Diagnosis / Problem: atypical chest pain Discharge Goals Goal(s): Improve function Activity Recommendations Activity Limitations: resume your previous activity . Current Hospital Diet Patient's current hospital diet: Diabetes Type 2 Diet, AHA Diet (Heart Healthy) , Vegetarian Diet Discharge Diet Recommended Diet: AHA Diet (Heart Healthy), Low Sodium Diet (2gm Na), Diabetes Type 2 Diet Pending Studies Studies pending at discharge: no Laboratory Results Hemoglobin A1c Test 10/23/16 04:50 Range/Units Estimated Average Glucose 220 mg/dl Hemoglobin A1c 9.3 H 4.5-5.6 % Lipid Panel Test 07/31/16 08:23 Range/Units Triglycerides Level 212 H 0-150 mg/dl Cholesterol Level 123 0-200 mg/dl HDL Cholesterol 34 mg/dl Cholesterol/HDL Ratio 3.6 LDL Cholesterol, Calculated 47 mg/dl Medical Emergencies . Who to Call and When: Medical Emergencies: If at any time you feel your situation is an emergency, please call 911 immediately. . Non-Emergent Contact Non-Emergency issues call your: Primary Care Provider . . "Provider Documentation" section prepared by Cass Chavez. VTE Core Measure Inpt VTE Proph given/why not?: Other Anticoagulation (heparin drip)
[2016-10-23 11:34] VITALS: BP 128/66; PULSE 82; TEMP 36.6; O2SAT 98
--- NOTE | 2016-10-24 07:23 | Discharge Summary ---
Discharge Summary Admission Date: Oct 22, 2016 at 15:23 Discharge Date: Oct 23, 2016 Principal Diagnosis: atypical chest pain Immunizations: Have You Had Influenza Vaccine: Yes Consultations: Dr. Nilson Joya cardiology Medication Reconciliation New Medications: Metformin Hcl (Glucophage) 1,000 Mg Tab 1000 MG PO BID for 30 Days, #6 TAB Continued Medications: Alprazolam (Xanax) 1 Mg Tab 1 MG PO HS, TAB Atorvastatin (Lipitor) 10 Mg Tab 10 MG PO HS, TAB Bupropion Hcl (Smoking Deterre (Bupropion Hcl Sr) 150 Mg Tab 1 TAB PO BID for 30 Days, #60 TAB 5 Refills Glimepiride (Glimepiride) 2 Mg Tab 1 TAB PO BIDM Insulin Aspart (Novolog Flexpen) 100 Units/Ml Inj 12 UNITS SQ TID Lansoprazole (Prevacid) 30 Mg Capcr 30 MG PO QAM, CAP Lisinopril (Lisinopril) 20 Mg Tab 1 TAB PO QAM Discontinued Medications: Rivaroxaban (Xarelto) 15 Mg Tab 15 MG PO BID, TAB Referrals At Discharge Follow up Referrals: Senior Laboratory Technician Referral - Within 1-2 Weeks with Cem Joya MD Discharge Exam Interpretation Summary * Name: SARAH GALLAGHER Study Date: 10/23/2016 06:28 AM BP: 112/58 mmHg * Patient Location: [facility] [place]\S\E210\S\1 HR: 73 * : 1970 (M/d/yyyy) Gender: Male Height: 72 in * Age: 46 yrs Ethnicity: CA Weight: 381 lb * Ordering Physician: Cass Chavez * Referring Physician: DANYEL * Performed By: Isi Meehan RDCS * * Reason For Study: CHEST PAIN * BSA: 2.8 m2 * History: CHEST PAIN * -- Conclusions -- * 1. Severely technically limited study due to body habitus. * 2. Grossly normal LV size. Low normal LV function. EF 45-50%. Regional wall motion abnormalities can not be excluded due to limited imaging. * 3. RV not well visualized. Bordeline RV and RA dilation. Grossly normal RV function. * 4. No significant valvular stenosis/regurgitation. * 5. No prior studies for comparison. Procedure Details * A contrast injection of Definity was performed to improve assessment of LV function. * Contrast was injected into an intravenous site in the right arm. * One vial of Definity ultrasound contrast was diluted in normal saline to a total volume of 10 ml. A total of '3' ml of solution was administered during imaging. * Lot # [id number] of Definity utilized for procedure. * Expiration date OCT 27. * The attending nurse who injected the contrast agent was MARY PHIPPS. Left Ventricle * The left ventricle is not well visualized. * The left ventricle is grossly normal size. * Ejection Fraction = 45-50%. * Regional wall motion abnormalities cannot be excluded due to limited visualization. Right Ventricle * The right ventricle is not well visualized. * Borderline right ventricular enlargement. * The right ventricular systolic function is qualitatively normal. Atria * The left atrial size is normal. * Right atrium not well visualized. * Borderline right atrial enlargement. * No ASD detected; PFO is not assessed. Mitral Valve * The mitral valve is not well visualized. * Significant mitral regurgitation is absent. Tricuspid Valve * The tricuspid valve is not well visualized. * Significant tricuspid regurgitation is absent. Aortic Valve * The aortic valve is not well visualized. * No hemodynamically significant valvular aortic stenosis. * There is no significant aortic regurgitation. Pulmonic Valve * The pulmonary valve is inadequately visualized, but the Doppler data is adequate for interpretation. * Pulmonic stenosis is absent. * There is no pulmonic valvular regurgitation. Great Vessels * The aortic root and proximal ascending aorta are normal sized. Pericardium/Pleural * There is no pericardial effusion. MMode 2D Measurements and Calculations IVSd 1.1 cm IVSs 1.3 cm LVIDd 4.0 cm LVIDs 2.9 cm LVPWd 1.3 cm IVS/LVPW 0.85 FS 27.6 % EDV(Teich) 72.0 ml ESV(Teich) 33.1 ml EF(Teich) 54.1 % EDV(cubed) 66.3 ml ESV(cubed) 25.2 ml EF(cubed) 62.0 % % IVS thick 14.5 % LV mass(C)d 170.5 grams LV mass(C)dI 60.9 grams/m\S\2 SV(Teich) 38.9 ml SI(Teich) 13.9 ml/m\S\2 SV(cubed) 41.1 ml SI(cubed) 14.7 ml/m\S\2 LVAd ap4 51.0 cm\S\2 LVLd ap4 9.8 cm EDV(MOD-sp4) 210.7 ml EDV(sp4-el) 225.6 ml LVAs ap4 36.7 cm\S\2 LVLs ap4 8.8 cm ESV(MOD-sp4) 129.1 ml ESV(sp4-el) 130.0 ml EF(MOD-sp4) 38.7 % EF(sp4-el) 42.4 % LVAd ap2 36.5 cm\S\2 LVLd ap2 10.2 cm EDV(MOD-sp2) 104.7 ml EDV(sp2-el) 111.3 ml LVAs ap2 25.8 cm\S\2 LVLs ap2 9.2 cm ESV(MOD-sp2) 60.0 ml ESV(sp2-el) 61.6 ml EF(MOD-sp2) 42.7 % EF(sp2-el) 44.6 % LVLd %diff 3.7 % EDV(MOD-bp) 151.6 ml LVLs %diff 4.1 % ESV(MOD-bp) 89.8 ml EF(MOD-bp) 40.8 % SV(MOD-sp4) 81.6 ml SI(MOD-sp4) 29.1 ml/m\S\2 SV(MOD-sp2) 44.7 ml SI(MOD-sp2) 16.0 ml/m\S\2 SV(MOD-bp) 61.8 ml SI(MOD-bp) 22.1 ml/m\S\2 SV(sp4-el) 95.6 ml SI(sp4-el) 34.1 ml/m\S\2 SV(sp2-el) 49.6 ml SI(sp2-el) 17.7 ml/m\S\2 Doppler Measurements and Calculations MV E max adriana 82.5 cm/sec MV A max adriana 75.2 cm/sec MV E/A 1.1 MV dec time 0.23 sec Ao V2 max 121.6 cm/sec Ao max PG 5.9 mmHg Ao max PG (full) 2.0 mmHg LV V1 max PG 3.9 mmHg LV V1 max 98.5 cm/sec Hospital Course See progress note on day of discharge. 1. Chest pain -initially sounded like typical chest pain, however, after resolution the predominant complaint became SOB likely from his viral URI. - serial CE were negative - Dr. Joya was consulted and recommended an outpatient follow-up for a stress test. 2. T2DM - has been uncontrolled - will resume novolog home dose - cont glimepiride and metformin 3. HTN - monitor vitals - cont lisinopril 4. Dyslipidemia - resume atorvastatin Total Time Spent: Less than 30 minutes This includes examination of the patient, discharge planning, medication reconciliation, and communication with other providers. Discharge Instructions Please refer to the electronic Patient Visit Report (Discharge Instructions) for additional information. Follow-Up Follow-up with Dr. López and Dr. Nilson Joya Additional Copies To Italo López M.D.
[2016-11-28] MEDS ORDERED: Farxiga PO (06:53)
[2016-11-28] MEDS ORDERED: METF-384 PO (06:53)
[2016-11-28] MEDS ORDERED: CARV3.122 PO (06:53)
[2016-11-28] MEDS ORDERED: LIRA18IN (06:53)
[2016-11-28] MEDS ORDERED: INSDGI SC (06:53)
[2016-11-28] MEDS ORDERED: GLIM4TAB2 PO (06:53)
[2016-11-28] MEDS ORDERED: COEN100C15 PO (07:40)
[2016-11-28] MEDS ORDERED: ASPI81TA28 PO (07:40)
== END 2016-10-23 12:19 | disposition home or self-care (01) | DRG 313 ==
LOC: C.2E 15:23
PROVIDERS: ADMIT Hospitalist; ATTEND Internal Medicine
DX: R07.89 Other chest pain (principal); I26.99 Other pulmonary embolism without acute cor pulmonale; Z68.43 Body mass index [BMI] 50.0-59.9, adult; J06.9 Acute upper respiratory infection, unspecified; G47.33 Obstructive sleep apnea (adult) (pediatric); E11.65 Type 2 diabetes mellitus with hyperglycemia; E78.00 Pure hypercholesterolemia, unspecified; R06.02 Shortness of breath; E66.01 Morbid (severe) obesity due to excess calories; I10 Essential (primary) hypertension; B34.9 Viral infection, unspecified; F41.9 Anxiety disorder, unspecified; Z79.899 Other long term (current) drug therapy; Z79.4 Long term (current) use of insulin; Z79.01 Long term (current) use of anticoagulants; Z82.49 Family history of ischemic heart disease and other diseases of the circulatory system; Z91.19 Patient's noncompliance with other medical treatment and regimen

== ENCOUNTER → 2016-10-22 | Outpatient (CLI) | payer BC ==
[~2016-10-22] MED LIST changes: -OPTIRAY 320 IV PRN
--- NOTE | 2016-10-22 11:12 | DIAGNOSTIC IMAGING REPORT ---
BILATERAL LOWER EXTREMITY VENOUS DOPPLER CLINICAL HISTORY: Elevated d-dimer. COMPARISON STUDY: Bilateral lower extremity venous Doppler October 18, 2016. TECHNIQUE: Sonography of the deep venous system of the bilateral lower extremities was performed. Compression and augmentation were evaluated. FINDINGS: The bilateral common femoral, superficial femoral and popliteal veins were compressible. Augmentation was normal. Flow was shown within the deep calf vessels. IMPRESSION: No evidence of deep venous thrombus within the bilateral lower extremities. Electronically signed by: Benedict Machuca M.D. 10/22/2016 11:11 AM Dictated Date/Time: 10/22/2016 11:10 AM
== END | disposition home or self-care (01) ==
LOC: C.ULTR 09:43
PROVIDERS: ATTEND Family Medicine
DX: R94.31 Abnormal electrocardiogram [ECG] [EKG] (principal)

== ENCOUNTER → 2016-10-30 | Outpatient (CLI) | payer BC ==
[~2016-10-30] MED LIST changes: +ALPR1TAB3 PO; +ASPI81TA28 PO; +BUPR-102 PO; +CARV3.122 PO; +COEN100C15 PO; +Farxiga PO; +GLIM4TAB2 PO; +INSDGI SC; +LIRA18IN; -LIRA18IN INJ; +METF1000 PO; +NVLGI/PEN SQ; -ONDA4TAB10 SL; -WLL100 PO
--- NOTE | 2016-11-02 21:21 | PULMONARY FUNCTION TEST ---
Spirometry is within the limits of normal. Repeat study done following bronchodilator showed no significant improvement in function. Review of the flow volume loops reveals that the patient did not optimally perform the inspiratory portion of the flow volume loop. Advise clinical correlation.
== END | disposition home or self-care (01) ==
LOC: C.RC 11:03
PROVIDERS: ATTEND Family Medicine
DX: R06.00 Dyspnea, unspecified (principal)

== ENCOUNTER → 2016-11-13 | Outpatient (CLI) | payer BC ==
[~2016-11-13] MED LIST changes: +REGADENOSON 0.4 MG/5 ML SYR ONE
--- NOTE | 2016-11-13 19:06 | MYOCARDIAL PERFUSION SCAN ---
ONE-DAY NUCLEAR MEDICINE TECHNETIUM-99M CARDIOLITE MYOCARDIAL PERFUSION STUDY REQUESTING PHYSICIAN: Cem Joya MD PRIMARY CARE PHYSICIAN: Dr. López. INDICATION: Chest pain. EKG: Baseline EKG showed sinus rhythm at a ventricular rate of 74. There is poor R-wave progression anteriorly and cannot rule out anterior infarct. STRESS EKG: Shows no dynamic ST changes, no significant arrhythmias. Heart rate yareli from 74 to 97. Nondiagnostic for ischemia. Blood pressure yareli from 111/81-142/74. The patient had no reproduction of prior chest pain. TECHNIQUE: For the stress portion of the study, 33.0 mCi of technetium-99m Cardiolite IV was injected at 9:40 a.m. on 11/13/2016. Thirty minutes following the injection, imaging of the heart was performed in multiple projections. For the rest portion of the study, 10.8 mCi of technetium-99m Cardiolite was injected IV at 7:45 a.m. One hour following injection, imaging of the heart was performed in the same projections. FINDINGS: Raw images were reviewed in detail. There was suggestion of diaphragmatic attenuation, more so on the stress than rest. There was also mild gut uptake impacting the inferior imaging border of the heart. No significant pathologic extracardiac uptake. The short axis, vertical long axis, horizontal long axis views were reviewed in detail. There was a small, mild, largely reversible perfusion defect involving the mid to distal inferior wall. Summed difference score of 3. No other significant perfusion defects. There was mildly dilated LV with normal LV function, EF 51%. End-diastolic volume of 149 mL. There were no significant regional wall motion abnormalities. IMPRESSION: 1. Small, largely reversible, mild perfusion defect involving the mid to distal inferior wall, potentially consistent with PDA distribution ischemia (summed difference score of 3 suggesting small extent of myocardium at risk). 2. Mildly dilated left ventricle. 3. Normal left ventricular function with ejection fraction of 51%. No regional wall motion abnormalities. 4. Nondiagnostic pharmacologic EKG due to inability to achieve target heart rate. MTDD
== END | disposition home or self-care (01) ==
LOC: C.NUCL 07:02
PROVIDERS: ATTEND Internal Medicine Interventional Cardiology
DX: E11.65 Type 2 diabetes mellitus with hyperglycemia (principal); I10 Essential (primary) hypertension; R06.09 Other forms of dyspnea; R07.9 Chest pain, unspecified; I51.7 Cardiomegaly

== ENCOUNTER → 2016-11-28 | Day surgery (SDC) | payer BC ==
[~2016-11-28] VITALS: Ht 182.9 cm; Wt 173.0 kg
[~2016-11-28] MED LIST changes: +ACETAMINOPHEN 325 MG TAB PO PRN; +FENTANYL CITRATE INJ 50 MCG/1 ML 2 ML VIAL ONE; +HEPARIN SOD (PORCINE) 1000 UNIT/ML 10 ML VIAL ONE; -METF1000 PO; +MIDAZOLAM HCL 1 MG/ML 2ML VIAL ONE; +NITROGLYCERIN/D5W 100MCG/ML 20ML SYR ONE; +NiCARDipine HCL INJ 2.5 MG/ML 10 ML AMP ONE; -REGADENOSON 0.4 MG/5 ML SYR ONE; +SODIUM CHLORIDE 0.9% 1000ML 1,000 ML IV SCH
[2016-11-28 07:17] VITALS: PULSE 84; TEMP 36.5; O2SAT 95; Ht 182.9 cm; Wt 173.0 kg
[2016-11-28 07:35] LABS: HEMATOCRIT 41.6 % (42-52); MEAN CORPUSCULAR HEMOGLOBIN 23.7 pg (25-34); MEAN PLATELET VOLUME 9.3 fL (7.4-10.4); PLATELET COUNT 285 K/uL (130-400); WHITE BLOOD COUNT 9.22 K/uL (4.8-10.8)
[2016-11-28 07:41] LABS: MEAN CORPUSCULAR HGB CONC 32.5 g/dl (32-36)
[2016-11-28 07:42] LABS: PROTHROMBIN TIME (PATIENT) 10.2 SECONDS (9.0-12.0)
[2016-11-28 08:03] LABS: BUN/CREATININE RATIO 18.9 (10-20); CALCIUM 8.6 mg/dl (8.5-10.1); CREATININE 0.88 mg/dl (0.60-1.40); POTASSIUM 4.2 mmol/L (3.5-5.1)
--- NOTE | 2016-11-28 08:49 | History & Physical Bridge Note ---
H&P Re-Evaluation Bridge Note: I have examined the patient, reviewed the History & Physical and in the interval since the performance of the History & Physical I have noted the following changes of clinical significance: No changes noted
--- NOTE | 2016-11-28 08:50 | Procedure Note ---
Post-Mod Sedation Assessment General Date of Moderate Sedation Nov 28, 2016. Vital Signs: Vital Signs Past 12 Hours Date Time Temp Pulse Resp B/P Pulse Ox O2 Delivery O2 Flow Rate FiO2 11/28/16 08:45 82 16 142/89 94 Room Air 11/28/16 07:17 36.5 84 16 95 Room Air Review - Discharge Criteria Vital Signs Stable: Yes Alert/Oriented/Conversant: Yes Returned to Baseline Mental St: Yes Nausea Absent/Minimal: Yes Pain/Discomfort/Absent/Minimal: Yes Normal/Baseline Respirations: Yes Active Bleeding?: No Pt Received D/C Instructions: Yes Prescriptions Given: None Specific Proced. D/C Criteria Distal Pulses Present (Cardiac: Yes Groin site assessed-Card Cath: N/A Voided Prior To Discharge: N/A Discharged Patients Adult Escort/Transportation: Yes
--- NOTE | 2016-11-28 08:50 | Procedure Note ---
Pre-Mod Sedation Assessment General Date of Moderate Sedation: Nov 28, 2016. Vital Signs: Vital Signs Past 12 Hours Date Time Temp Pulse Resp B/P Pulse Ox O2 Delivery O2 Flow Rate FiO2 11/28/16 08:45 82 16 142/89 94 Room Air 11/28/16 07:17 36.5 84 16 95 Room Air Review Cardiovascular: regular rate, rhythm, no edema, no gallop Abdomen: normal bowel sounds, non tender, soft Lungs: chest non-tender, lungs clear, normal breath sounds Pre-Sedation Airway Assessment Oral Cavity: WNL Able to Visualize Vocal Cords: No Short Thick Neck: No Hx of Sleep Apnea: Yes Smoking Status: Never Smoker Mallampati Classification: Class III ASA Classification: Class II Procedure Planning Contraindications-for Mod Sed: None Yes Notes The planned sedation has been discussed with the patient and consent obtained. I have identified the patient, determined the appropriateness of sedation and have assessed the patient immediately prior to the procedure. All medicine(s) and interventions are by my order.
--- NOTE | 2016-11-28 09:24 | Cardiac Catheterization ---
Procedure Note Procedure Date Nov 28, 2016. Pre-Procedure Diagnosis Positive Stress Test AUC Score 7 Post-Procedure Diagnosis Normal Coronary Arteries, Normal Intracardiac Pressures Procedure(s) Performed Coronary Angiography, Left Heart Cath Drama Teacher Dr. Joya Shovel Oiler(s) Ginny Estimated Blood Loss 10 Medication(s) Fentanyl, Heparin, Nitroglycerin, Versed, Lidocaine 1% Summary of Findings Indication: Atypical chest pain, positive stress test Access: 6Fr Right Radial Artery Catheters: [place], JL3.5, Pigtail Findings: LM - Large caliber vessel, ectatic in the distal segment, luminal irregularities LAD - Large caliber vessel, mild luminal irregularities in proximal segment. Large 1st diagonal with mild ostial disease (<20%). Ramus - Large vessel, angiographically normal Circumflex - Small vessel without significant branches RCA - Dominant, very large caliber vessel (>5 mm), luminal irregularities LVEDP - 14 Arterial Closure: TR Band Summary: 1. Angiographically normal coronary arteries (False positive stress test) 2. Normal intracardiac filling pressures Recommendations: Continue current cardiac regimen and ASCVD risk factor modification. Further evaluation for non-cardiac causes of chest pain as needed per Dr. López Hemodynamics Rest Ao: 112/83/96 Final Ao: 126/78/99 LV: 140/14 Recommendations Medical therapy and/or Counseling Specimens None Radiation Exposure (mGy) 1950 Contrast (mls) 85 Visipaque Fluids (cc crystalloids) 90 Anesthesia Moderate Procedural Complication(s) None Disposition Revenue Settlements Administrator Holding/Recovery ACC Data Cardiac Status Clinical evaluation leading to the procedure CAD Presntation: Positive Stress Test Anginal Classification: CCS II Heart Failure: No Cardiogenic Shock w/in 24Hrs: No Cardiac Arrest w/in 24Hrs: No Imaging studies past 6 months: Yes Stress studies past 6 months: Yes Standard Exercise Stress Test: No Stress Echocardiogram: No Stress Testing w/SPECT MPI: Yes - Negative, Yes - Positive, Risk/Extent of Ischemia (Low) Cardiac CTA: No Coronary Anatomy Dominant: Right Left Main (% Stenosis): Normal LAD (% Stenosis): Normal Circumflex (% Stenosis): Normal RCA (% Stenosis): Normal Diagnostic Physician's Name: Cem Joya MD Status: Elective Closure Device Percutaneous Entry Location: Radial Closure Device: Radial Band Recommendations: Medical therapy and/or Counseling Intraprocedure Events Significant Dissection: No Perforation: No
--- NOTE | 2016-11-28 09:31 | Discharge Instructions ---
Discharge Instructions Procedure Procedure Date: Nov 28, 2016. Reason for Visit: Dr Joya To Do Chest Pain. Discharge Discharge Date: Nov 28, 2016. Discharge Diagnosis: Normal coronary arteries Last Recorded Wt (Kilograms): 173 Anesthesia Post Anesthesia Instructions: If you have had General Anesthesia or IV Sedation: * Do not drive today. * Resume driving when surgeon permits. * Do not make important decisions or sign legal documents today. * Call surgeon for: 1. Temperature elevations greater than 101 degrees F. 2. Uncontrollable pain. 3. Excessive bleeding. 4. Persistent nausea and vomiting. 5. Medication intolerance (nausea, vomiting or rash). * For nausea and vomiting use only clear liquids such as: tea, soda, bouillon until nausea subsides, then gradually increase diet as tolerated. * If you have any concerns or questions, call your surgeon's office. If physician is unavailable and it is an emergency, call 911 or go to the nearest emergency room. Instructions Activity Recommendations: limitations as noted below Allergies: Coded Allergies: Shellfish (Verified Allergy, Severe, SHORTNESS OF BREATH,SWELLING, 10/16/16) Penicillins (Verified Allergy, Unknown, UNKNOWN-WAS YRS AGO-HAS TAKEN AMOXICILLIN WITHOUT PROBLEM, 10/16/16) AMOXICILLIN RECENTLY WAS OKAY Follow Up Additional Instructions: ACTIVITY RECOMMENDATIONS: It is common to feel weak and fatigue for a few days. * Do not drive or operate any motorized equipment for the next 2 days. * Limit stair usage (2 or 3 trips a day only) for the next three days. * Do not lift anything heavier than 10 pounds for the next three days. * Do not engage in vigorous exercise or any sports for the next five days. * You may shower the day after your procedure, but do not immerse the area for three days. Cleanse the site gently with soap and water. SPECIAL CARE INSTRUCTIONS: * You may replace the pressure dressing or band-aid the morning after the procedure. * After your procedure, it is normal to have a small bruise or small lump at the site. Examine your site daily for any change in the bruise or lump, redness, swelling, drainage or numbness. Notify your doctor if any change. BLEEDING: * If there is a small amount of bleeding at the site, lie down and apply firm pressure with a clean cloth for ten minutes. When the bleeding stops, lie quietly keeping the procedure limb straight for six hours. Notify your doctor as soon as possible. * If the bleeding does not stop after ten minutes or if there is a large amount of bleeding or spurting, call 911 immediately. Continue to lie down and hold firm pressure until help arrives. SKIN IRRITATION: * You may experience some redness and/or swelling in the area where radiation was administered. If any skin irritation occurs, please contact your family physician. FOLLOW UP VISIT: Keep any scheduled doctor appointments. Kera Lamb Recommendations: Call your doctor if: * Temperature above 101 degrees * Pain not relieved by pain medicine ordered * There is increased drainage or redness from any incision * You have any unanswered questions or concerns. Your Doctors Instructions noted above were prepared by provider Bruno Joya. Patient Signature Section: Patient Instructions Signature Page Babatunde Monroy Patient (or Guardian) Signature/Date: I have read and understand the instructions given to me by my caregivers. Caregiver/RN/Doctor Signature/Date: The above-named patient and/or guardian has received patient instructions on this date. + Original Patient Signature Page (only) stays with chart. Please make copy for patient.
[2016-11-28 11:00] VITALS: BP 145/72; PULSE 88; O2SAT 96
== END | disposition home or self-care (01) ==
LOC: C.CATH 07:08
PROVIDERS: ATTEND Internal Medicine Interventional Cardiology
DX: R94.39 Abnormal result of other cardiovascular function study (principal); I10 Essential (primary) hypertension; E11.65 Type 2 diabetes mellitus with hyperglycemia; E78.5 Hyperlipidemia, unspecified; E66.01 Morbid (severe) obesity due to excess calories; K21.9 Gastro-esophageal reflux disease without esophagitis; G47.33 Obstructive sleep apnea (adult) (pediatric); Z68.43 Body mass index [BMI] 50.0-59.9, adult

== ENCOUNTER → 2016-11-30 | Outpatient (CLI) | payer BC ==
[~2016-11-30] MED LIST changes: -ACETAMINOPHEN 325 MG TAB PO PRN; -FENTANYL CITRATE INJ 50 MCG/1 ML 2 ML VIAL ONE; -GLIM2TAB2 PO; -HEPARIN SOD (PORCINE) 1000 UNIT/ML 10 ML VIAL ONE; -MIDAZOLAM HCL 1 MG/ML 2ML VIAL ONE; -NITROGLYCERIN/D5W 100MCG/ML 20ML SYR ONE; -NVLGI/PEN SQ; -NiCARDipine HCL INJ 2.5 MG/ML 10 ML AMP ONE; -SODIUM CHLORIDE 0.9% 1000ML 1,000 ML IV SCH
--- NOTE | 2016-11-30 13:16 | DIAGNOSTIC IMAGING REPORT ---
CHEST 2 VIEWS ROUTINE CLINICAL HISTORY: DYSPNEA, POSITIVE D DIMER COMPARISON STUDY: 10/22/2016 FINDINGS: The cardiac and mediastinal contours are normal. There is no evidence of focal pulmonary consolidation. There is no evidence of failure. No pleural effusions are visualized.[ IMPRESSION: No active disease in the chest. Electronically signed by: Tay Nunez M.D. 11/30/2016 1:15 PM Dictated Date/Time: 11/30/2016 1:14 PM
--- NOTE | 2016-11-30 14:17 | DIAGNOSTIC IMAGING REPORT ---
NUCLEAR MEDICINE VENTILATION AND PERFUSION SCAN CLINICAL HISTORY: DYSPNEA, POSITIVE D DIMER COMPARISON STUDY: Chest x-ray dated 11/30/2016 FINDINGS: The patient was ventilated utilizing 32.5 mCi of technetium 99m DTPA aerosol. The patient was perfused utilizing 5.5 mCi of technetium 99m MAA. Due to history of pulmonary artery hypertension, less than 500,000 particles were used. There is very minimal heterogeneity in the perfusion scan. No significant VQ mismatches are visualized. This examination is felt to be of very low probability for pulmonary embolism. IMPRESSION: Very low probability for pulmonary embolism. Electronically signed by: Tay Nunez M.D. 11/30/2016 2:15 PM Dictated Date/Time: 11/30/2016 2:13 PM
== END | disposition home or self-care (01) ==
LOC: C.NUCL 12:33
PROVIDERS: ATTEND Family Medicine
DX: R06.00 Dyspnea, unspecified (principal); R79.1 Abnormal coagulation profile

== ENCOUNTER → 2016-12-24 | Outpatient (CLI) | payer BC ==
[~2016-12-24] MED LIST changes: +ATOR10TA82 PO; -ATOR10TA88 PO; +PRED10TA PO; +SPIR25TA89 PO; +ZOLP1TAB PO
--- NOTE | 2016-12-25 11:05 | POLYSOMNOGRAPH REPORT ---
CLINICAL DATA: A 46-year-old male with BMI of 51.67 referred by myself, Dr. López and Ninoska Burnham for evaluation of obstructive sleep apnea. He has a previous history of sleep apnea, but was unable to tolerate CPAP. He does have shortness of breath. He did have severe sleep apnea in 2012. He does have snoring and his girlfriend reports gasping episodes at night. He thought he never slept well during his sleep studies because he was sleeping in an unusual place, so home sleep apnea test was performed. On the evening of 12/24/2016, a home sleep apnea test was performed using a [employer]ide[employer] type 3 monitor. RECORDING RESULTS: Total recording time was 9.6 hours. The patient's estimated sleep time and monitoring time was 1.6 hours. RESPIRATORY DATA: Moderate sleep apnea was documented. The JILLIAN was 23.4. There were 2 obstructive and 2 mixed apneic episodes. There were 34 hypopneic episodes. The longest respiratory event was 27 seconds. OXIMETRY DATA: Nocturnal hypoxemia was seen. Oxygen shasha was 83%. Mean saturation was 91%. Time below 89% was 13 minutes. HEART DATA: Heart rate ranged from 61-73 beats per minute. SNORING DATA: Snoring was recorded throughout the night. BUSINESS INTELLIGENCE REPORTING ANALYST'S COMMENTS: The patient only wore the equipment for approximately an hour and a half. 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 He had difficulty tolerating the equipment and could not sleep. IMPRESSION: At least moderate sleep apnea/hypopnea with a respiratory event index of 23.4 with nocturnal hypoxemia on a very limited home sleep apnea test. RECOMMENDATIONS: The patient may benefit from consideration of either an oral appliance or a repeat sleep study with CPAP. Clinical correlation is needed. MELCHORD
== END | disposition home or self-care (01) ==
LOC: C.NEUR 08:30
PROVIDERS: ATTEND Physician Assistant Medical
DX: G47.33 Obstructive sleep apnea (adult) (pediatric) (principal)

== ENCOUNTER → 2017-04-25 | Outpatient (CLI) | payer BC ==
[~2017-04-25] MED LIST changes: -ATOR10TA82 PO; +ATOR10TA88 PO; -PRED10TA PO; -SPIR25TA89 PO; -ZOLP1TAB PO
--- NOTE | 2017-04-25 13:01 | DIAGNOSTIC IMAGING REPORT ---
CHEST 2 VIEWS ROUTINE CLINICAL HISTORY: R73.09,E55.9,D51.9,E78..9,R53.83 DIFFICULTY BREATHING. PALPITATIONS. COMPARISON STUDY: 11/30/2016 FINDINGS: The heart is mildly enlarged. There is no failure. There is no focal pulmonary consolidation. There are no pleural effusions.[ IMPRESSION: No active disease in the chest. Electronically signed by: Tay Nunez M.D. 04/25/2017 1:00 PM Dictated Date/Time: 04/25/2017 1:00 PM
[2017-04-25 13:24] LABS: BASO % 0.5 %; BASO ABS # 0.05 K/uL (0-0.2); EOS % 1.5 %; HEMATOCRIT 39.7 % (42-52); IG% 0.8 %; LYMPH % 38.4 %; LYMPH ABS # 4.09 K/uL (1.2-3.4); MEAN CELL VOLUME 68.9 fL (80-100); MEAN PLATELET VOLUME 9.1 fL (7.4-10.4); MONO % 5.5 %; NEUT % 53.3 %; PLATELET COUNT 272 K/uL (130-400); RED BLOOD COUNT 5.76 M/uL (4.7-6.1); WHITE BLOOD COUNT 10.65 K/uL (4.8-10.8)
[2017-04-25 13:53] LABS: ESTIMATED AVERAGE GLUCOSE 180 mg/dl; HA1C FLAG Normal (Normal)
[2017-04-25 13:55] LABS: COMPLETE YES; HYPERSEGMENTED POLYS 1+; MICROCYTOSIS PRESENT
[2017-04-25 14:09] LABS: ALT/SGPT 35 U/L (12-78); BLOOD UREA NITROGEN 22 mg/dl (7-18); BUN/CREATININE RATIO 28.3 (10-20); CALCIUM 8.8 mg/dl (8.5-10.1); CARBON DIOXIDE 27 mmol/L (21-32); CHLORIDE 102 mmol/L (98-107); CHOLESTEROL 108 mg/dl (0-200); CREATININE 0.77 mg/dl (0.60-1.40); GLUCOSE 150 mg/dl (70-99); POTASSIUM 3.8 mmol/L (3.5-5.1); SODIUM 135 mmol/L (136-145); URIC ACID 3.9 mg/dl (2.6-7.2)
[2017-04-25 14:19] LABS: ALB/GLOB RATIO 0.9 (0.9-2); ALKALINE PHOSPHATASE 51 U/L (45-117); AST/SGOT 12 U/L (15-37); CHOLESTEROL/HDL RATIO 2.9; HDL CHOLESTEROL 37 mg/dl; LDL CHOLESTEROL CALCULATED 42 mg/dl; TOTAL IRON BINDING CAPACITY 426 mcg/dl (250-450); TRIGLYCERIDES 147 mg/dl (0-150); VERY LOW DENSITY LIPOPROT CALC 29 mg/dl
== END | disposition home or self-care (01) ==
LOC: C.LAB 12:31
PROVIDERS: ATTEND Family Medicine
DX: R73.09 Other abnormal glucose (principal); E55.9 Vitamin D deficiency, unspecified; D51.9 Vitamin B12 deficiency anemia, unspecified; E78.9 Disorder of lipoprotein metabolism, unspecified; R53.83 Other fatigue

== ENCOUNTER → 2017-04-29 | Outpatient (CLI) | payer BC ==
[2017-04-29 14:41] LABS: BASO % 0.3 %; BASO ABS # 0.03 K/uL (0-0.2); EOS % 0.7 %; HEMATOCRIT 40.6 % (42-52); IG% 0.8 %; LYMPH % 13.8 %; MEAN CORPUSCULAR HEMOGLOBIN 22.2 pg (25-34); MEAN CORPUSCULAR HGB CONC 31.8 g/dl (32-36); MEAN PLATELET VOLUME 9.5 fL (7.4-10.4); MONO % 3.2 %; NEUT % 81.2 %; PLATELET COUNT 271 K/uL (130-400); WHITE BLOOD COUNT 11.62 K/uL (4.8-10.8)
[2017-04-29 14:45] LABS: PFT COL EPI 122 SECONDS (80-184)
[2017-04-29 15:19] LABS: COMPLETE YES; MICROCYTOSIS PRESENT
[2017-04-29 15:25] LABS: PROTHROMBIN TIME (PATIENT) 10.3 SECONDS (9.0-12.0)
[2017-05-02 07:39] LABS: LUPUS ANTICOAGULANT** TC36573X Negative (Negative); PROTEIN C ACTIVITY** TC 1777X 102 % (70-180)
== END | disposition home or self-care (01) ==
LOC: C.LAB 12:40
PROVIDERS: ATTEND Family Medicine
DX: R06.00 Dyspnea, unspecified (principal)

== ENCOUNTER → 2017-06-03 | Outpatient (CLI) | payer BC ==
--- NOTE | 2017-06-03 16:10 | DIAGNOSTIC IMAGING REPORT ---
CHEST 2 VIEWS ROUTINE CLINICAL HISTORY: COUGH, SOB dyspnea COMPARISON STUDY: 04/25/2017 FINDINGS: Mild stable cardia megaly. Diaphragms smooth. Lungs are clear. IMPRESSION: Mild stable cardia megaly. No acute process. The above report was generated using voice recognition software. It may contain grammatical, syntax or spelling errors. Electronically signed by: Yadiel Daley M.D. 06/03/2017 4:08 PM Dictated Date/Time: 06/03/2017 4:08 PM
--- NOTE | 2017-06-03 16:19 | DIAGNOSTIC IMAGING REPORT ---
SINUSES MIN 3 VIEWS ROUTINE CLINICAL HISTORY: COUGH COMPARISON STUDY: No previous studies for comparison. FINDINGS: No air-fluid levels are visualized. There is minor mucosal thickening at the base of the left maxillary sinus. No destructive lesions are evident. IMPRESSION: Minor left maxillary sinus mucosal thickening. No conventional radiographic evidence of acute sinusitis. Electronically signed by: Tay Nunez M.D. 06/03/2017 4:17 PM Dictated Date/Time: 06/03/2017 4:17 PM
== END | disposition home or self-care (01) ==
LOC: C.RAD1850 14:27
PROVIDERS: ATTEND Physician Assistant
DX: R05 Cough (principal); R06.02 Shortness of breath

== ENCOUNTER → 2017-06-03 | Outpatient (CLI) | payer BC ==
[2017-06-03 17:51] LABS: INFLUENZA A PCR Neg for Influ A (NEG); INFLUENZA B PCR Neg for Influ B (NEG)
== END | disposition home or self-care (01) ==
LOC: C.LAB1850 14:53
PROVIDERS: ATTEND Physician Assistant
DX: R05 Cough (principal)

== ENCOUNTER → 2017-06-11 | Outpatient (CLI) | payer BC ==
[2017-06-11 09:34] LABS: BASO % 0.3 %; BASO ABS # 0.03 K/uL (0-0.2); EOS % 1.5 %; HEMATOCRIT 41.3 % (42-52); IG% 1.5 %; LYMPH ABS # 4.78 K/uL (1.2-3.4); MEAN CELL VOLUME 69.1 fL (80-100); MEAN CORPUSCULAR HEMOGLOBIN 22.4 pg (25-34); MEAN CORPUSCULAR HGB CONC 32.4 g/dl (32-36); MEAN PLATELET VOLUME 8.9 fL (7.4-10.4); MONO % 6.3 %; NEUT % 49.4 %; PLATELET COUNT 285 K/uL (130-400); RED BLOOD COUNT 5.98 M/uL (4.7-6.1); WHITE BLOOD COUNT 11.67 K/uL (4.8-10.8)
[2017-06-11 10:05] LABS: ALT/SGPT 39 U/L (12-78); BLOOD UREA NITROGEN 22 mg/dl (7-18); BUN/CREATININE RATIO 26.3 (10-20); CALCIUM 9.2 mg/dl (8.5-10.1); CARBON DIOXIDE 22 mmol/L (21-32); CHLORIDE 104 mmol/L (98-107); CREATININE 0.83 mg/dl (0.60-1.40); GLUCOSE 176 mg/dl (70-99); POTASSIUM 3.5 mmol/L (3.5-5.1); SODIUM 137 mmol/L (136-145)
[2017-06-11 10:17] LABS: ALKALINE PHOSPHATASE 48 U/L (45-117); AST/SGOT 19 U/L (15-37)
[2017-06-11 10:20] LABS: COMPLETE YES; MICROCYTOSIS PRESENT
== END | disposition home or self-care (01) ==
LOC: C.LAB 08:41
PROVIDERS: ATTEND Family Medicine
DX: J18.9 Pneumonia, unspecified organism (principal)

== ENCOUNTER → 2017-07-18 | Day surgery (SDC) | payer BC ==
--- NOTE | 2017-07-16 18:33 | HISTORY & PHYSICAL EXAMINATION ---
DATE OF ADMISSION: 07/18/2017 PRIMARY CARE PHYSICIAN: Italo López MD HISTORY OF PRESENT ILLNESS: This is a 47-year-old male who is followed in the outpatient office for symptoms of recurrent fevers, cough, wheeze, and dyspnea. Relevant past medical history includes esophageal reflux disease, history of sinusitis with deviated nasal septum, obstructive sleep apnea - severe, and morbid obesity. The patient established in the outpatient office 11/2016 for symptoms of dyspnea associated chest pain. At that time, he reported history of upper respiratory infection beginning in March 2017 with symptoms including fever, nausea, cough productive of sputum without hemoptysis, dyspnea, wheeze; with which of these symptoms he gradually improved. On October 2016 he was admitted to [facility] again with recurrent chest pain. CT angiogram and bilateral lower extremity Doppler as well as VQ scan were all unremarkable for thromboembolic process. He has undergone an extensive cardiac workup as well which included a stress test (positive) followed by a left heart catheterization (negative). Echocardiogram 10/22/2016 with an ejection fraction of 45% to 50% with borderline RV and RA dilation and normal RV function. The patient reports symptoms of intermittent wheeze and dyspnea on exertion beginning in approximately 2012 without chronic daily cough. He states that his symptoms are associated with changes in the weather, odors, and perfumes. Exertional dyspnea is provoked with activity such as climbing flight of steps in his exertional threshold is decreased at the time that he is experiencing respiratory infection. He did trial Symbicort as well as nebulized budesonide; however, this was not particularly palliative. He has seen ENT and Allergy in the past. Over the past 1-2 months, patient has presented with recurrent symptoms of pharyngitis, fevers (T-max of 102 Fahrenheit), myalgias, nasal and chest congestion with cough productive of thick yellow sputum. Fever has resolved temporarily with antibiotic, and cough and wheeze improved somewhat following a course of Biaxin and steroid without full resolution. X-ray of the sinuses on 06/03/2017 described mild mucosal thickening without air-fluid levels. CHEST X-RAY: Clear lungs without infiltrate, failure, or masses. On followup appointment most recently, patient reported persistent respiratory symptoms which included cough again productive this time of clear mucus with associated sneezing, nasal congestion symptoms and return of low-grade fevers. Unfortunately, he continued to report significant wheeze despite using Perforomist as well as high dose steroids 40 mg per day. He reported that he has been compliant with his nocturnal CPAP machine and denied escalation of chest pain. PAST MEDICAL HISTORY: 1. Anxiety. 2. Asthmatic bronchitis. 3. Benign essential hypertension. 4. Chest pain. 5. Cough. 6. Diabetes mellitus type 2. 7. Esophageal reflux disease. 8. Hyperlipidemia. 9. Morbid obesity. 10. Obstructive sleep apnea. FAMILY HISTORY: 1. Malignant neoplasm of the breast. 2. Myocardial infarction. PAST SURGICAL HISTORY: Oral surgery. SOCIAL HISTORY: 1. Denied history of alcohol use. 2. Denied history of drug use. 3. The patient is employed. 4. The patient is a lifelong nonsmoker. 5. The patient denies history of regular exercise. CURRENT MEDICATIONS: 1. Alprazolam 1 mg oral tablet: Ttake 1 tablet at bedtime. 2. Lisinopril 20 mg oral tablet: Take 1 tablet daily. 3. Glimepiride 4 mg oral tablet: Take 1 tablet twice daily. 4. Ambien: Take as needed. 5. Atorvastatin calcium 10 mg oral tablet: Take 1 tablet at bedtime. 6. Bupropion hydrochloride: Take 1 tablet twice daily. 7. Carvedilol 3.125 mg oral tablet: Take 1 tablet twice daily. 8. Farxiga 10 mg oral tablet: Take 1 tablet by mouth every morning. 9. ____ hydrochloride 1000 mg oral tablet: Take 1 tablet twice daily. 10. Omeprazole. Take as directed. 11. Prednisone 20 mg oral tablet: Take ____ 1-1/2 tablet twice daily and then taper as directed. 12. Victoza 18 mcg per 3 mL subcutaneous solution: Inject 0.6 units daily. ALLERGIES: 1. PENICILLIN. 2. SHELLFISH. PHYSICAL EXAMINATION: VITAL SIGNS: Height 106 feet, weight 398 pounds and 9 ounces. Blood pressure 132/86 right upper extremity sitting. O2 saturation 92% on room air. Temperature 98.3 degrees Fahrenheit. Respiratory rate 22 respirations per minute. Heart rate 114 beats per minute. CONSTITUTIONAL: Well-developed, morbidly obese male. No acute distress. HEAD: Positive for facial symmetry. EYES: EOMI, PERRLA, no conjunctival injection. MOUTH: Mallampati 4 with moist mucous membranes. No erythema, exudate, or postnasal drip. NECK: Trachea is midline without adenopathy or masses. RESPIRATORY: Nonlabored respirations. No rales or rhonchi. No audible wheeze. No clubbing or cyanosis. CARDIOVASCULAR: Regular rate and rhythm. No murmurs, rubs or gallops. +2 radial pulses distally and less than 1 second capillary refill. ABDOMEN: Soft with active bowel sounds. INTEGUMENTARY: No rashes or ecchymosis. MUSCULOSKELETAL AND EXTREMITIES: Moving and developed symmetrically. NEUROLOGIC: Alert and oriented with data recall intact and appropriate affect. REVIEW OF SYSTEMS: CONSTITUTIONAL: Positive for fever and feeling poorly, but otherwise noted as in HPI. Denies chills. EYES: Negative. ENT: Positive for pharyngitis and nasal discharge, and as noted in HPI and otherwise unremarkable. CARDIOVASCULAR: Denies chest pain, palpitation, or peripheral edema. RESPIRATORY: Positive for cough, wheeze, and dyspnea on exertion but as noted in HPI. GASTROINTESTINAL: Positive for heartburn but as noted in HPI, and denies abdominal pain, nausea or vomiting. HEMATOLOGIC AND LYMPHATIC: Negative. ASSESSMENT AND PLAN: A 47-year-old male who is followed in the outpatient office with continued care, persistent wheeze, recurrent cough and fevers. His symptoms have improved somewhat but have not fully resolved. I do suspect there is an element of fluid retention contributing to his symptoms as well as potentially component of sinus contribution. We will treat him with some diuresis and avoid further antibiotics at this time. He is already on high level dose of steroids. He should taper this by 5 mg every 5 days until he reaches 15 mg and then hold. Additionally, we will set him up for bronchoscopy for further diagnostics. Consider follow up with ENT as well.
[2017-07-18] VITALS (16 sets, daily range): BP systolic 96–141; BP diastolic 63–93; PULSE 86–97; TEMP 36.5–36.8; O2SAT 91–99; Ht 182.9 cm; Wt 176.0 kg
[~2017-07-18] VITALS: Ht 182.9 cm; Wt 176.0 kg
[~2017-07-18] MED LIST changes: +ATOR10TA82 PO; -ATOR10TA88 PO; +FENTANYL CITRATE 100 MCG 2 ML CARP IV ONE; +FENTANYL CITRATE INJ 50 MCG/1 ML 2 ML VIAL IV ONE; +MIDAZOLAM HCL 1 MG/ML 2ML VIAL IV ONE; +MIDAZOLAM HCL 5 MG/ML 1 ML VIAL IV ONE; +NURSING VERBAL MED ORDER ONE; +PRED10TA PO; +SODIUM CHLORIDE 0.9% 1000ML 1,000 ML IV SCH; +SPIR25TA89 PO; +ZOLP1TAB PO
--- NOTE | 2017-07-18 10:03 | Procedure Note ---
Pre-Mod Sedation Assessment General Date of Moderate Sedation: Jul 18, 2017. Vital Signs: Vital Signs Past 12 Hours Date Time Temp Pulse Resp B/P (MAP) Pulse Ox O2 Delivery O2 Flow Rate FiO2 07/18/17 09:42 36.8 90 20 134/81 94 Room Air 07/18/17 09:06 36.8 90 20 134/81 (98) 94 Room Air Review Cardiovascular: regular rate, rhythm, no edema, no gallop, no JVD, no murmur Abdomen: normal bowel sounds, non tender, soft, no organomegaly, no pulsatile mass, normal rectal exam Lungs: chest non-tender, lungs clear, normal breath sounds, no respiratory distress, no accessory muscle use Airway Class: II Pre-Sedation Airway Assessment Oral Cavity: WNL Able to Visualize Vocal Cords: Yes Short Thick Neck: Yes Hx of Sleep Apnea: Yes Smoking Status: Never Smoker Mallampati Classification: Class III ASA Classification: Class II Procedure Planning Contraindications-for Mod Sed: None (patient is higher risk overall for conscious sedation secondary to his severe sleep apnea but we can perform BiPAP during bronchoscopy to overcome this issue) Yes Notes The planned sedation has been discussed with the patient and consent obtained. I have identified the patient, determined the appropriateness of sedation and have assessed the patient immediately prior to the procedure. All medicine(s) and interventions are by my order.
--- NOTE | 2017-07-18 10:55 | Procedure Note ---
Post-Moderate Sedation Plan General Date of Moderate Sedation Jul 18, 2017. Vital Signs: Vital Signs Past 12 Hours Date Time Temp Pulse Resp B/P (MAP) Pulse Ox O2 Delivery O2 Flow Rate FiO2 07/18/17 10:45 97 16 126/81 91 Mask 10.0 07/18/17 10:40 89 16 141/93 92 Mask 10.0 07/18/17 10:35 92 16 132/82 91 Mask 8.0 07/18/17 10:30 91 16 128/84 96 Mask 8.0 07/18/17 10:25 87 16 129/75 96 Mask 8.0 07/18/17 10:20 86 16 103/80 97 Mask 8.0 07/18/17 10:17 87 16 109/69 97 Mask 8.0 07/18/17 10:10 86 16 120/71 99 Mask 8.0 07/18/17 09:42 36.8 90 20 134/81 94 Room Air 07/18/17 09:06 36.8 90 20 134/81 (98) 94 Room Air Review - Discharge Plan Post Moderate Sedation Plan: On clinical assessment, the patient appears to have tolerated the conscious sedation without complications. Patient is recovering as anticipated. Patient will continue to be monitored by nursing and may be discharged when conscious sedation discharge criteria are met.
--- NOTE | 2017-07-18 10:55 | Bronchoscopy Procedure Note ---
Bronchoscopy Procedure Note Procedure: Bronchoscopy, conscious sedation, Consent: Obtained through the patient placed into the chart Pre-procedural diagnosis: Post-procedural diagnosis: Start time: 1031 End time: 1041 Total time: 10 minutes Analgesia: 2% liquid lidocaine: Via nebulizer 4% gel lidocaine: Via right naris 2% liquid lidocaine: Via bronchoscopy Sedation: Versed IV: 3mg Fentanyl IV: 75g Procedure: The STRATUSCORE video bronchoscope was used for this procedure and passed down through the right naris Right naris/posterior naris/posterior oropharynx: Anatomically within normal limits Glottis: Anatomically within normal limits Vocal cords: Proper abduction and abduction, anatomically within normal limits Subglottis/trachea/Loren: Anatomically within normal limits Right bronchial tree: Right mainstem bronchus: Anatomically within normal limits Right upper lobe: mild EDAC associated with the takeoff to the right upper lobe Bronchus intermedius: Anatomically within normal limits Right middle lobe: Anatomically within normal limits Right lower lobe: Anatomically within normal limits Findings: No significant findings noted Left bronchial tree: Left mainstem bronchus: Anatomically within normal limits Left upper lobe: Anatomically within normal limits Lingula: Anatomically within normal limits Left lower lobe: Anatomically within normal limits Findings: No significant findings noted Bronchial alveolar lavage: Right upper lobe EBL: None Complications: None Follow-up: ASU
--- NOTE | 2017-07-18 10:58 | Discharge Instructions ---
Discharge Instructions Date of Service Jul 18, 2017. Admission Reason for Admission: Cough, Sob Discharge Discharge Diagnosis / Problem: progressive dyspnea on exertion Discharge Goals Goal(s): Diagnostic testing Activity Recommendations Activity Limitations: resume your previous activity . Instructions / Follow-Up Instructions / Follow-Up Follow-up with the [facility] pulmonary division Current Hospital Diet Patient's current hospital diet: Discharge Diet Recommended Diet: Regular Diet Procedures Procedures Performed: Bronchoscopy, bronchial Lavage, conscious sedation Pending Studies Studies pending at discharge: no Laboratory Results Hemoglobin A1c Test 07/08/17 10:23 Range/Units Estimated Average Glucose 206 mg/dl Hemoglobin A1c 8.8 H 4.5-5.6 % Lipid Panel Test 04/25/17 12:37 Range/Units Triglycerides Level 147 0-150 mg/dl Cholesterol Level 108 0-200 mg/dl HDL Cholesterol 37 mg/dl Cholesterol/HDL Ratio 2.9 LDL Cholesterol, Calculated 42 mg/dl Medical Emergencies . Who to Call and When: Medical Emergencies: If at any time you feel your situation is an emergency, please call 911 immediately. . Non-Emergent Contact Non-Emergency issues call your: Corn Miller . . "Provider Documentation" section prepared by Mickey Mix. . VTE Core Measure Inpt VTE Proph given/why not?: Treatment not indicated
== END | disposition home or self-care (01) ==
LOC: C.ACU 08:36
PROVIDERS: ATTEND Internal Medicine Critical Care Medicine
DX: R05 Cough (principal); I10 Essential (primary) hypertension; E78.5 Hyperlipidemia, unspecified; E11.9 Type 2 diabetes mellitus without complications; G47.33 Obstructive sleep apnea (adult) (pediatric); K21.9 Gastro-esophageal reflux disease without esophagitis; E66.01 Morbid (severe) obesity due to excess calories; F41.9 Anxiety disorder, unspecified; Z79.899 Other long term (current) drug therapy

== ENCOUNTER → 2017-07-31 | Outpatient (CLI) | payer BC ==
[~2017-07-31] MED LIST changes: -ASPI81TA28 PO; -FENTANYL CITRATE 100 MCG 2 ML CARP IV ONE; -FENTANYL CITRATE INJ 50 MCG/1 ML 2 ML VIAL IV ONE; -INSDGI SC; -MIDAZOLAM HCL 1 MG/ML 2ML VIAL IV ONE; -MIDAZOLAM HCL 5 MG/ML 1 ML VIAL IV ONE; -NURSING VERBAL MED ORDER ONE; -SODIUM CHLORIDE 0.9% 1000ML 1,000 ML IV SCH
[2017-07-31 10:10] LABS: BASO % 0.5 %; EOS % 1.3 %; HEMATOCRIT 38.4 % (42-52); LYMPH % 33.5 %; LYMPH ABS # 2.64 K/uL (1.2-3.4); MEAN CELL VOLUME 71.8 fL (80-100); MEAN CORPUSCULAR HEMOGLOBIN 23.4 pg (25-34); MEAN CORPUSCULAR HGB CONC 32.6 g/dl (32-36); MEAN PLATELET VOLUME 9.2 fL (7.4-10.4); MONO % 6.3 %; NEUT % 57.4 %; PLATELET COUNT 232 K/uL (130-400); RED BLOOD COUNT 5.35 M/uL (4.7-6.1); WHITE BLOOD COUNT 7.88 K/uL (4.8-10.8)
[2017-07-31 10:11] LABS: BASO ABS # 0.04 K/uL (0-0.2); COMPLETE YES
[2017-07-31 10:16] LABS: ESTIMATED AVERAGE GLUCOSE 214 mg/dl; HA1C FLAG Normal (Normal)
[2017-07-31 10:44] LABS: ALT/SGPT 37 U/L (12-78); AST/SGOT 15 U/L (15-37); BLOOD UREA NITROGEN 19 mg/dl (7-18); CALCIUM 8.3 mg/dl (8.5-10.1); CARBON DIOXIDE 22 mmol/L (21-32); CHLORIDE 105 mmol/L (98-107); CHOLESTEROL 106 mg/dl (0-200); CREATININE 0.78 mg/dl (0.60-1.40); GLUCOSE 241 mg/dl (70-99); POTASSIUM 3.6 mmol/L (3.5-5.1); SODIUM 139 mmol/L (136-145)
[2017-07-31 10:52] LABS: ALB/GLOB RATIO 0.9 (0.9-2); ALKALINE PHOSPHATASE 49 U/L (45-117); CHOLESTEROL/HDL RATIO 3.1; FERRITIN 7.2 ng/ml (8.0-388.0); HDL CHOLESTEROL 34 mg/dl; LDL CHOLESTEROL CALCULATED 34 mg/dl; TRIGLYCERIDES 190 mg/dl (0-150); VERY LOW DENSITY LIPOPROT CALC 38 mg/dl
[2017-08-04 19:32] LABS: ALBUMIN 3.7 G/DL (3.8-4.8); GAMMA GLOBULIN 0.8 G/DL (0.8-1.7); TOTAL PROTEIN 6.6 G/DL (6.2-8.3)
== END | disposition home or self-care (01) ==
LOC: C.LAB 08:19
PROVIDERS: ATTEND Internal Medicine Cardiovascular Disease
DX: R94.31 Abnormal electrocardiogram [ECG] [EKG] (principal); I50.9 Heart failure, unspecified; E66.9 Obesity, unspecified; R06.02 Shortness of breath; G47.30 Sleep apnea, unspecified; I11.0 Hypertensive heart disease with heart failure; E78.5 Hyperlipidemia, unspecified; F32.9 Major depressive disorder, single episode, unspecified

== ENCOUNTER → 2017-12-30 | Outpatient (CLI) | payer BC ==
[~2017-12-30] MED LIST changes: +CLIN300C2 PO; +DAPA1TAB8 PO; +DEXL60CA4 PO; +DULA1INJ SC; +FORM1NEB INH; +FRS/40 PO; -Farxiga PO; -LANS30CA12 PO; -LIRA18IN; -LSN20 PO; +OXYC1TAB3 PO; +SACU1TAB7 PO; +ZOLP10TA PO; -ZOLP1TAB PO
[2017-12-30 12:20] LABS: BASO % 0.4 %; BASO ABS # 0.03 K/uL (0-0.2); EOS % 2.1 %; EOS ABS # 0.15 K/uL (0-0.5); HEMOGLOBIN 12.1 g/dL (14.0-18.0); IG# 0.04 K/uL (0.00-0.02); LYMPH % 27.7 %; LYMPH ABS # 1.99 K/uL (1.2-3.4); MEAN CELL VOLUME 67.5 fL (80-100); MEAN CORPUSCULAR HEMOGLOBIN 20.9 pg (25-34); MEAN PLATELET VOLUME 9.3 fL (7.4-10.4); MONO % 7.1 %; MONO ABS # 0.51 K/uL (0.11-0.59); NEUT % 62.1 %; NEUT ABS # 4.47 K/uL (1.4-6.5); PLATELET COUNT 293 K/uL (130-400); RED CELL DISTRIBUTION WIDTH CV 17.7 % (11.5-14.5); RED CELL DISTRIBUTION WIDTH SD 43.1 fL (36.4-46.3); WHITE BLOOD COUNT 7.19 K/uL (4.8-10.8)
[2017-12-30 12:56] LABS: ALBUMIN 3.3 gm/dl (3.4-5.0); AST/SGOT 12 U/L (15-37); BLOOD UREA NITROGEN 17 mg/dl (7-18); CALCIUM 8.7 mg/dl (8.5-10.1); CARBON DIOXIDE 26 mmol/L (21-32); CHOLESTEROL 124 mg/dl (0-200); CREATININE 0.84 mg/dl (0.60-1.40); GLUCOSE 314 mg/dl (70-99); POTASSIUM 3.7 mmol/L (3.5-5.1); SODIUM 136 mmol/L (136-145); URIC ACID 4.1 mg/dl (2.6-7.2)
[2017-12-30 13:01] LABS: HEMOGLOBIN A1C 11.3 % (4.5-5.6)
[2017-12-30 13:04] LABS: ALKALINE PHOSPHATASE 71 U/L (45-117); ALT/SGPT 25 U/L (12-78); LDL CHOLESTEROL CALCULATED 46 mg/dl; TOTAL PROTEIN 7.1 gm/dl (6.4-8.2); TRANSFERRIN 334 mg/dl (200-360)
== END | disposition home or self-care (01) ==
LOC: C.LAB 11:03
PROVIDERS: ATTEND Family Medicine
DX: R73.09 Other abnormal glucose (principal); E55.9 Vitamin D deficiency, unspecified; D51.9 Vitamin B12 deficiency anemia, unspecified; E78.9 Disorder of lipoprotein metabolism, unspecified; R53.83 Other fatigue

== ENCOUNTER 2018-01-04 20:57 | Emergency (ER) | payer BC ==
[~2018-01-04] VITALS: Ht 180.3 cm; Wt 173.8 kg
[~2018-01-04 20:57] MED LIST changes: -CLIN300C2 PO; -OXYC1TAB3 PO
[2018-01-04 21:07] VITALS: TEMP 36.6; Ht 180.3 cm; Wt 173.8 kg
[2018-01-04] MEDS ORDERED: OXYC1TAB3 PO (21:24)
[2018-01-04] MEDS ORDERED: CLIN300C2 PO (21:24)
[2018-01-04] MEDS ORDERED: CLINDAMYCIN 150MG HOME PACK PO ONE (21:30)
[2018-01-04] MEDS ORDERED: OXYCODONE IR HOME PACK PO ONE (21:30)
[2018-01-04] MEDS ORDERED: CLINDAMYCIN IV 900 MG in DEXTROSE 5% 100ML 100 ML IV ONE (21:30)
[2018-01-04 22:42] VITALS: BP 174/100; PULSE 85; O2SAT 94
--- NOTE | 2018-01-04 23:44 | EMERGENCY ROOM VISIT NOTE ---
History First contact with patient: 21:12 Chief Complaint: DENTAL PAIN Stated Complaint: SEVERE PAIN IN NECK, JAW, MOUTH FROM TOOTH Nursing Triage Summary: c/o left lower dental pain. poor dention noted. pt reports appt with oral surgeon on saturday, reports he is on abx at this time. states "the pain is just worse." History of Present Illness The patient is a 47 year old male who presents to the Emergency Room with complaints of left lower dental pain. The patient reports that he has bad teeth. He recently saw his dentist, Dr. Schwarz for the symptoms. He was referred to Dr. Gooden, maxillofacial surgeon, and has an appointment next Saturday. The patient was provided a prescription for amoxicillin by his dentist. The patient reports mildly worsening pain and swelling of the left jaw region. He denies any difficulty swallowing or throat tightness. He denies any fevers or chills, and rates his discomfort an 8 out of 10. He has taken ibuprofen and Tylenol without relief. Review of Systems 10 system review was performed and was negative except for pertinent positives and negatives as indicated in history of present illness Past Medical/Surgical History Medical Problems: (1) Atypical chest pain (2) Benign hypertension (3) Diabetes mellitus (4) Unstable angina Family History FH: cancer FH: diabetes mellitus FH: gallbladder disease FH: heart disease FH: hypertension FH: kidney disease Social History Smoking Status: Never Smoker Alcohol Use: none Drug Use: none Marital Status: single Housing Status: lives alone Occupation Status: employed Current/Historical Medications Scheduled Alprazolam (Xanax), 1 MG PO HS Atorvastatin (Lipitor), 10 MG PO HS Carvedilol (Coreg), 1 TAB PO BID Clindamycin Hcl (Cleocin), 300 MG PO QID Dapagliflozin Propanediol (Farxiga), 1 TAB PO QAM Dexlansoprazole (Dexilant), 1 CAP PO QAM Dulaglutide (Trulicity), 0.75 MG SC WK Glimepiride (Glimepiride), 1 TAB PO BID Metformin Hcl (Glucophage), 1,000 MG PO BID Sacubitril-Valsartan (Entresto 49-51 mg), 1 TAB PO BID Spironolactone (Aldactone), 25 MG PO BID Zolpidem Tartrate (Ambien), 10 MG PO HS Scheduled PRN Oxycodone Ir (Roxicodone Ir), 1-2 TAB PO Q4H PRN for Pain Physical Exam Vital Signs Date Time Temp Pulse Resp B/P (MAP) Pulse Ox O2 Delivery O2 Flow Rate FiO2 01/04/18 22:42 85 18 174/100 94 01/04/18 21:07 36.6 85 18 174/100 94 Room Air Physical Exam CONSTITUTIONAL: Healthy and well nourished. Alert and oriented X 3 with positive affect. Patient does not appear acutely ill or toxic. HEENT: Normocephalic, atraumatic. Pupils equal, round and reactive. No obvious facial edema noted. OROPHARYNX: The patient has poor dentition, but no obvious gingival erythema, fluctuance or pointing. No evidence for González's angina or retropharyngeal abscess. LYMPHATICS: No submandibular, submental or cervical chain adenopathy. NECK: Full active range of motion without discomfort. NTEGUMENTARY: No rash or other significant dermatologic conditions noted. NEUROLOGIC: Facial sensations are intact. Medical Decision & Procedures Medications Administered Medications (Trade) Dose Ordered Sig/Alfonso Route Start Time Stop Time Status Last Admin Dose Admin Clindamycin Phosphate 900 mg/ Dextrose 106 ml @ 100 mls/hr ONE ONCE IV 01/04/18 21:30 01/04/18 22:33 DC 01/04/18 21:50 100 MLS/HR Oxycodone HCl (Roxicodone Immediate Rel 5MG Home Pack) 1 homepack UD ONCE PO 01/04/18 21:30 01/04/18 21:31 DC 01/04/18 22:08 1 HOMEPACK Clindamycin HCl (Cleocin 150MG Home Pack) 1 homepack UD ONCE PO 01/04/18 21:30 01/04/18 21:31 DC 01/04/18 22:08 1 HOMEPACK ED Course Patient history and physical exam were performed. Nurse's notes were reviewed. Vital signs were reviewed, showing an elevated blood pressure 174/100. I did suggest administering IV antibiotics, and the patient was in agreement. IV access was established, and labs were drawn. The patient was administered IV clindamycin and Toradol. The patient was provided a home pack and prescription for clindamycin and OxyIR. The patient was encouraged to continue alternating ibuprofen and Tylenol for baseline pain relief. The patient reports that he has an appointment on Saturday with his dentist, and Saturday with Dr. Gooden. He was instructed to return to the emergency department for any progressively worsening pain, swelling, difficulty swallowing or fever. The patient was happy with plan of care, voiced understanding of all discharge instructions, and rated his pain an 8 out of 10 at the time of discharge. It is noted that his blood pressure continued to be elevated at the time of discharge. He was instructed to follow-up with his PCP for blood pressure recheck. Medical Decision [place] Drug Monitoring Program Search Results: patient reviewed within database, no issues identified Medication Reconcilliation Current Medication List: was personally reviewed by [place] Blood Pressure Screening Patient's blood pressure: Elevated blood pressure Blood pressure disposition: Referred to PCP Impression Primary Impression: Dental infection Additional Impression: Elevated blood pressure reading Departure Information Dispostion Home / Self-Care Condition GOOD Prescriptions Oxycodone Ir (Roxicodone Ir) 5 Mg Tab 1-2 TAB PO Q4H Y for Pain, #15 TAB For Initial Treatment Prov: Ronnell Womack PA 01/04/18 Clindamycin Hcl (CLEOCIN) 300 Mg Cap 300 MG PO QID for 7 Days, #28 CAP Prov: Ronnell Womack PA 01/04/18 Referrals Lalo Gooden DMD, MD, FACS Forms HOME CARE DOCUMENTATION FORM, IMPORTANT VISIT INFORMATION Patient Instructions My [facility] Additional Instructions Stop all amoxicillin antibiotics. Take clindamycin 300 mg 4 times daily as prescribed - next dose in 6 hours or upon awakening. Ibuprofen 800 mg and/or Tylenol 1000 mg every 8 hours. You may also alternate these medications for more effective pain relief: Ibuprofen --4 HRS--> Tylenol --4 HRS--> ibuprofen --4 HRS--> Tylenol .... OxyIR if needed for worse pain. Do not drink alcohol or drive while taking OxyIR. Follow-up with your dentist on Saturday, and maxillofacial surgeon on Saturday as scheduled. Return over the weekend for any progressively worsening symptoms. Problem Qualifiers
== END 2018-01-04 22:43 | disposition home or self-care (01) ==
LOC: C.EDB 20:59 → C.EDD 22:43
DX: K04.7 Periapical abscess without sinus (principal); I10 Essential (primary) hypertension; E11.9 Type 2 diabetes mellitus without complications; Z80.9 Family history of malignant neoplasm, unspecified; Z83.3 Family history of diabetes mellitus; Z82.49 Family history of ischemic heart disease and other diseases of the circulatory system; Z84.1 Family history of disorders of kidney and ureter; Z79.84 Long term (current) use of oral hypoglycemic drugs; Z79.899 Other long term (current) drug therapy

== ENCOUNTER → 2018-01-22 | Outpatient (CLI) | payer BC ==
[~2018-01-22] MED LIST changes: -BUPR-102 PO; -COEN100C15 PO; -FORM1NEB INH; -FRS/40 PO; +OXYC1TAB3 PO; -PRED10TA PO
[2018-01-22 15:02] LABS: BASO % 0.4 %; BASO ABS # 0.04 K/uL (0-0.2); EOS % 1.7 %; EOS ABS # 0.18 K/uL (0-0.5); HEMATOCRIT 39.6 % (42-52); HEMOGLOBIN 12.9 g/dL (14.0-18.0); IG# 0.07 K/uL (0.00-0.02); LYMPH % 23.9 %; LYMPH ABS # 2.56 K/uL (1.2-3.4); MEAN CELL VOLUME 66.3 fL (80-100); MEAN CORPUSCULAR HEMOGLOBIN 21.6 pg (25-34); MEAN CORPUSCULAR HGB CONC 32.6 g/dl (32-36); MEAN PLATELET VOLUME 9.4 fL (7.4-10.4); MONO % 6.7 %; MONO ABS # 0.72 K/uL (0.11-0.59); NEUT % 66.6 %; NEUT ABS # 7.16 K/uL (1.4-6.5); PLATELET COUNT 318 K/uL (130-400); RED CELL DISTRIBUTION WIDTH CV 18.7 % (11.5-14.5); RED CELL DISTRIBUTION WIDTH SD 43.8 fL (36.4-46.3); WHITE BLOOD COUNT 10.73 K/uL (4.8-10.8)
[2018-01-22 15:41] LABS: ALBUMIN 3.5 gm/dl (3.4-5.0); ALKALINE PHOSPHATASE 58 U/L (45-117); ALT/SGPT 30 U/L (12-78); AST/SGOT 14 U/L (15-37); BLOOD UREA NITROGEN 19 mg/dl (7-18); CALCIUM 8.8 mg/dl (8.5-10.1); CARBON DIOXIDE 24 mmol/L (21-32); GLUCOSE 151 mg/dl (70-99); POTASSIUM 3.7 mmol/L (3.5-5.1); SODIUM 138 mmol/L (136-145); TOTAL PROTEIN 7.6 gm/dl (6.4-8.2)
== END | disposition home or self-care (01) ==
LOC: C.LAB 13:35
PROVIDERS: ATTEND Family Medicine
DX: R00.0 Tachycardia, unspecified (principal)

== ENCOUNTER → 2018-04-16 | Day surgery (SDC) | payer BC ==
[2018-04-11 11:34] VITALS: Ht 182.9 cm; Wt 177.3 kg
[~2018-04-16] VITALS: Ht 182.9 cm; Wt 177.3 kg
[~2018-04-16] MED LIST changes: +BENZOCAIN/TETRACA/BUTAM SPRAY 200 APPLN/20 GM SPRY ONE; +INSU1INJ; +LIDOCAINE HCL 2% 2 ML VIAL (20MG/ML) ONE; +MIDAZOLAM HCL 1 MG/ML 2ML VIAL ONE; +ONDANSETRON INJ 2 MG/ML 2 ML VIAL ONE; -OXYC1TAB3 PO; +PROPOFOL IV EMULSION 10 MG/ML 20 ML VIAL ONE; +SODIUM CHLORIDE 0.9% 500ML 500 ML IV ONE; +SPIR1TAB46 PO; -SPIR25TA89 PO
[2018-04-16 13:21] VITALS: TEMP 36.6
--- NOTE | 2018-04-16 13:57 | Endo History and Physical ---
History & Physical Date of Service: Apr 16, 2018. Chief Complaint: ANEMIA, STOMACH PAIN Referring Physician: DR. TAPIA History of Present Illness 48 yo CM who presents for EGD secondary to anemia and stomach pain. Past Medical History Diabetes, Arthritis, Anxiety, Reflux, High Cholesterol, Sleep Apnea, Hypertension, Depression Past Surgical History Hx Cardiac Surgery: Yes (HEART CATH X2, NO STENTS ) Hx Internal Defibrillator: No Hx Pacemaker: No Hx Abdominal Surgery: No Hx of Implantable Prosthesis: No Hx Post-Op Nausea and Vomiting: No Hx Cancer Surgery: No Hx Thoracic Surgery: Yes (BRONCHOSCOPY) Hx Orthopedic: No Hx Urinary Tract Surgery: No Family History None Social History Smoking Status: Never Smoker Hx Substance Use: No Hx Alcohol Use: Yes (RARELY) Allergies Coded Allergies: Shellfish (Verified Allergy, Severe, SHORTNESS OF BREATH,SWELLING, 04/11/18) Penicillins (Verified Allergy, Unknown, UNKNOWN-WAS YRS AGO-HAS TAKEN AMOXICILLIN WITHOUT PROBLEM, 04/11/18) AMOXICILLIN RECENTLY WAS OKAY Current Medications Reported Home Medications Medications Dose Route/Sig Max Daily Dose Days Date Category Trulicity (Dulaglutide) 0.75 Mg/0.5 Ml Inj 0.75 Mg SC WK 04/11/18 Reported Aldactazide 50MG/50MG (HCTZ/Spironolactone) Tab 1 Tab PO BID 04/11/18 Reported Xultophy 100/3.6 100-3.6 Unit-mg/ml (Insulin Degludec-Liraglutide) 1 Inj Inj 01/27/18 Reported Farxiga (Dapagliflozin Propanediol) 10 Mg Tab 1 Tab PO QAM 08/23/17 Reported Ambien (Zolpidem Tartrate) 10 Mg Tab 10 Mg PO HS 08/23/17 Reported Entresto 49-51 mg (Sacubitril-Valsartan) 1 Tab Tab 1 Tab PO BID 08/23/17 Reported Dexilant (Dexlansoprazole) 60 Mg Cap 1 Cap PO QAM 08/23/17 Reported Glimepiride 4 Mg Tab 1 Tab PO BID 11/28/16 Reported Glucophage (Metformin Hcl) 1,000 Mg Tab 1,000 Mg PO BID 11/28/16 Reported Coreg (Carvedilol) 3.125 Mg Tab 1 Tab PO BID 11/28/16 Reported Xanax (Alprazolam) 1 Mg Tab 1 Mg PO HS 10/22/16 Reported Lipitor (Atorvastatin Calcium) 10 Mg Tab 10 Mg PO HS 01/07/15 Reported Vital Signs Weight (Kilograms): 177.27 Height (Feet): 6 Height (Inches): 0 Date Time Temp Pulse Resp B/P (MAP) Pulse Ox O2 Delivery O2 Flow Rate FiO2 04/16/18 13:21 36.6 86 20 153/75 (101) 95 Room Air Physical Exam General Appearance: WD/WN, no apparent distress Respiratory/Chest: Auscultation: breath sounds normal Cardiovascular: Heart Auscultation: RRR Abdomen: Bowel Sounds: normal Inspection & Palpation: soft, non-distended, no tenderness, guarding & rebound Assessment and Plan Assessment: 48 yo CM who presents for EGD secondary to anemia and stomach pain. Plan: Proceed with EGD.
--- NOTE | 2018-04-16 14:39 | Discharge Instructions ---
Endoscopy Patient Instructions Date / Procedure(s) Performed Apr 16, 2018. EGD Allergy Information Coded Allergies: Shellfish (Verified Allergy, Severe, SHORTNESS OF BREATH,SWELLING, 04/11/18) Penicillins (Verified Allergy, Unknown, UNKNOWN-WAS YRS AGO-HAS TAKEN AMOXICILLIN WITHOUT PROBLEM, 04/11/18) AMOXICILLIN RECENTLY WAS OKAY Discharge Date / Findings Apr 16, 2018. Gastric ulcers with biopsies Medication Instructions 1) Start Carafate 1 g by mouth four times daily prior to each meal and at bedtime. 2) OK to resume all medications today as prescribed Reported Home Medications Medications Dose Route/Sig Max Daily Dose Days Date Category Trulicity (Dulaglutide) 0.75 Mg/0.5 Ml Inj 0.75 Mg SC WK 04/11/18 Reported Aldactazide 50MG/50MG (HCTZ/Spironolactone) Tab 1 Tab PO BID 04/11/18 Reported Xultophy 100/3.6 100-3.6 Unit-mg/ml (Insulin Degludec-Liraglutide) 1 Inj Inj 01/27/18 Reported Farxiga (Dapagliflozin Propanediol) 10 Mg Tab 1 Tab PO QAM 08/23/17 Reported Ambien (Zolpidem Tartrate) 10 Mg Tab 10 Mg PO HS 08/23/17 Reported Entresto 49-51 mg (Sacubitril-Valsartan) 1 Tab Tab 1 Tab PO BID 08/23/17 Reported Dexilant (Dexlansoprazole) 60 Mg Cap 1 Cap PO QAM 08/23/17 Reported Glimepiride 4 Mg Tab 1 Tab PO BID 11/28/16 Reported Glucophage (Metformin Hcl) 1,000 Mg Tab 1,000 Mg PO BID 11/28/16 Reported Coreg (Carvedilol) 3.125 Mg Tab 1 Tab PO BID 11/28/16 Reported Xanax (Alprazolam) 1 Mg Tab 1 Mg PO HS 10/22/16 Reported Lipitor (Atorvastatin Calcium) 10 Mg Tab 10 Mg PO HS 01/07/15 Reported Provider Instructions Activity Restrictions - No exercising or heavy lifting for 24 hours. - Do not drink alcohol the day of the procedure. - Do not drive a car or operate machinery until the day after the procedure. - Do not make any important decisions or sign important papers in 24 hours after the procedure. Following Day: - Return to full activity which may include returning to work/school. Diet Start your diet with liquids and light foods (jello, soup, juice, toast). Then eat your usual diet if not nauseated. Treatment For Common After Affects For mild abdominal pain, bloating, or excessive gas: - Rest - Eat lightly - Lie on right side Follow-Up Information Follow-up with DR. TAPIA as scheduled Anesthesia Information What You Should Know You have had a procedure that required some medicine to reduce anxiety and discomfort. This treatment is called moderate sedation. After receiving the treatment, you may be sleepy, but you will be able to breathe on your own. The effects of the treatment may last for several hours. Follow these instructions along with Activity/Diet recommendations noted above: * Do NOT do anything where dizziness or clumsiness would be dangerous. * Rest quietly at home today, then you can be up and about tomorrow. * Have a responsible person stay with you the rest of today. * You may have had an I.V. today. If so, you may take the dressing off later today. Recommendations Call your doctor if: * Trouble breathing * Continuous vomiting for more than 24 hours * Temperature above 101 degrees * Severe abdominal pain or bloating * Pain not relieved by pain medicine ordered * There is increased drainage or redness from any incision * A large amount of rectal bleeding greater than 2-3 tablespoons. (If you had a polyp/s removed or have hemorrhoids, a small amount of blood - from the rectum is to be expected.) * You have any unanswered questions or concerns. IN THE EVENT OF A SERIOUS EMERGENCY, GO TO THE NEAREST EMERGENCY ROOM Your discharge instructions were prepared by provider Kennedy Gillette. Patient Instructions Signature Page Babatunde Monroy Patient (or Guardian) Signature/Date: I have read and understand the instructions given to me by my caregivers. Caregiver/RN/Doctor Signature/Date: The above-named patient and/or guardian has received patient instructions on this date. + Original Patient Signature Page (only) stays with chart. Please make copy for patient.
--- NOTE | 2018-04-16 14:43 | Anesthesiology Progress Note ---
Anesthesia Post Op Note Date & Time Apr 16, 2018 at 14:43 Vital Signs Pain Intensity: 0 Vital Signs Past 12 Hours Date Time Temp Pulse Resp B/P (MAP) Pulse Ox O2 Delivery O2 Flow Rate FiO2 04/16/18 14:37 87 20 119/74 (89) 94 Room Air 04/16/18 14:27 89 20 130/67 (88) 96 Mask 4 04/16/18 13:21 36.6 86 20 153/75 (101) 95 Room Air Notes Mental Status: alert / awake / arousable, participated in evaluation Pt Amnestic to Procedure: Yes Nausea / Vomiting: adequately controlled Pain: adequately controlled Airway Patency, RR, SpO2: stable & adequate BP & HR: stable & adequate Hydration State: stable & adequate Anesthetic Complications: no major complications apparent
--- NOTE | 2018-04-16 14:46 | GI REPORT ---
Patient Name: Babatunde Monroy Procedure Date: 04/16/2018 1:39 PM Date of : 1970 Admit Type: Outpatient Age: 48 Gender: Male Attending MD: Kennedy Gillette DO Procedure: Upper GI endoscopy Providers: Kennedy Gillette DO Referring MD: Italo López Indications: Generalized abdominal pain, Suspected gastro-esophageal reflux disease Medicines: Monitored Anesthesia Care Complications: No immediate complications. Estimated Blood Loss: Estimated blood loss: none. Procedure: Pre-Anesthesia Assessment: - Prior to the procedure, a History and Physical was performed, and patient medications and allergies were reviewed. The patient's tolerance of previous anesthesia was also reviewed. The risks and benefits of the procedure and the sedation options and risks were discussed with the patient. All questions were answered, and informed consent was obtained. Prior Anticoagulants: The patient has taken no previous anticoagulant or antiplatelet agents. ASA Grade Assessment: III - A patient with severe systemic disease. After reviewing the risks and benefits, the patient was deemed in satisfactory condition to undergo the procedure. After obtaining informed consent, the endoscope was passed under direct vision. Throughout the procedure, the patient's blood pressure, pulse, and oxygen saturations were monitored continuously. The scope was introduced through the mouth, and advanced to the second part of duodenum. The scope was introduced through the and advanced to the. The upper GI endoscopy was accomplished without difficulty. The patient tolerated the procedure well. Findings: The esophagus was normal. Few non-bleeding superficial gastric ulcers with no stigmata of bleeding were found in the gastric antrum. The largest lesion was 4 mm in largest dimension. Biopsies were taken with a cold forceps for Helicobacter pylori testing. The examined duodenum was normal. Impression: - Normal esophagus. - Non-bleeding gastric ulcers with no stigmata of bleeding. Biopsied. - Normal examined duodenum. Recommendation: - Resume previous diet. - Use sucralfate tablets 1 gram PO QID for 10 days. - Await pathology results. - Return to primary care physician as previously scheduled. Kennedy Gillette DO 04/16/2018 2:45:58 PM This report has been signed electronically. Note Initiated On: 04/16/2018 1:39 PM Number of Addenda: 0 I attest to the content of the Intraoperative Record and orders documented therein, exceptions below {[id number]}
[2018-04-16 14:54] VITALS: BP 121/88; PULSE 81; O2SAT 94
== END | disposition home or self-care (01) ==
LOC: C.GI 12:42
PROVIDERS: ATTEND Internal Medicine
DX: D64.9 Anemia, unspecified (principal); R10.84 Generalized abdominal pain; K25.9 Gastric ulcer, unspecified as acute or chronic, without hemorrhage or perforation; I11.0 Hypertensive heart disease with heart failure; F32.9 Major depressive disorder, single episode, unspecified; F41.9 Anxiety disorder, unspecified; E78.00 Pure hypercholesterolemia, unspecified; I25.10 Atherosclerotic heart disease of native coronary artery without angina pectoris; G47.33 Obstructive sleep apnea (adult) (pediatric); E11.9 Type 2 diabetes mellitus without complications; I50.9 Heart failure, unspecified; Z88.0 Allergy status to penicillin; Z91.013 Allergy to seafood; Z79.84 Long term (current) use of oral hypoglycemic drugs; Z79.899 Other long term (current) drug therapy

== ENCOUNTER → 2018-04-23 | Outpatient (CLI) | payer BC ==
[~2018-04-23] MED LIST changes: -BENZOCAIN/TETRACA/BUTAM SPRAY 200 APPLN/20 GM SPRY ONE; -LIDOCAINE HCL 2% 2 ML VIAL (20MG/ML) ONE; -MIDAZOLAM HCL 1 MG/ML 2ML VIAL ONE; -ONDANSETRON INJ 2 MG/ML 2 ML VIAL ONE; -PROPOFOL IV EMULSION 10 MG/ML 20 ML VIAL ONE; -SODIUM CHLORIDE 0.9% 500ML 500 ML IV ONE
[2018-04-23 16:56] LABS: BASO % 0.2 %; BASO ABS # 0.02 K/uL (0-0.2); EOS % 1.3 %; EOS ABS # 0.14 K/uL (0-0.5); HEMATOCRIT 44.7 % (42-52); HEMOGLOBIN 14.4 g/dL (14.0-18.0); IG# 0.07 K/uL (0.00-0.02); LYMPH % 23.3 %; LYMPH ABS # 2.47 K/uL (1.2-3.4); MEAN CELL VOLUME 72.9 fL (80-100); MEAN CORPUSCULAR HEMOGLOBIN 23.5 pg (25-34); MEAN CORPUSCULAR HGB CONC 32.2 g/dl (32-36); MEAN PLATELET VOLUME 9.8 fL (7.4-10.4); MONO ABS # 0.64 K/uL (0.11-0.59); NEUT % 68.5 %; NEUT ABS # 7.28 K/uL (1.4-6.5); PLATELET COUNT 292 K/uL (130-400); RED CELL DISTRIBUTION WIDTH CV 18.9 % (11.5-14.5); RED CELL DISTRIBUTION WIDTH SD 49.7 fL (36.4-46.3); WHITE BLOOD COUNT 10.62 K/uL (4.8-10.8)
== END | disposition home or self-care (01) ==
LOC: C.LAB 15:37
PROVIDERS: ATTEND Registered Nurse
DX: E11.65 Type 2 diabetes mellitus with hyperglycemia (principal)

== ENCOUNTER → 2018-04-30 | Outpatient (CLI) | payer BC ==
--- NOTE | 2018-04-30 13:38 | DIAGNOSTIC IMAGING REPORT ---
NUCLEAR GASTRIC EMPTYING STUDY: CLINICAL HISTORY: PEPTIC ULCER DISEASE, TYPE 2 ABDOMINAL DISCOMFORT COMPARISON STUDY: None TECHNIQUE: Following the oral administration of 1.1 mCi of technetium 99m sulfur colloid in egg sandwich and 8 ounces of water, static abdominal images are performed anteriorly and posteriorly at 0 minutes, 1 hour, 2 hours, and 4 hour time intervals. Gastric emptying was calculated utilizing the geometric mean method. FINDINGS: There is approximately 37 % gastric activity remaining at the 1 hour time interval, 29 % at the 2 hour time interval (normal is less than 60%), and 0 % remaining at the 4 hour time interval (normal is less than 10%). These findings are consistent with a normal study IMPRESSION: Findings are consistent with a normal study. Electronically signed by: Tay Nunez M.D. 04/30/2018 1:36 PM Dictated Date/Time: 04/30/2018 1:34 PM
== END | disposition home or self-care (01) ==
LOC: C.NUCL 08:16
PROVIDERS: ATTEND Internal Medicine
DX: K27.9 Peptic ulcer, site unspecified, unspecified as acute or chronic, without hemorrhage or perforation (principal); E11.65 Type 2 diabetes mellitus with hyperglycemia; D50.9 Iron deficiency anemia, unspecified

== ENCOUNTER 2024-01-10 02:47 | Inpatient (IN) ==
--- NOTE | 2024-01-10 03:00 | Emergency Department Note ---
Impression & Plan Syncope and collapse ADMIT ED Provider Note HPI: History obtained from patient. The patient is a 53-year-old gentleman with history of systolic heart failure, type 2 diabetes, ADD, mood disorder, paroxysmal atrial fibrillation, presents to the emergency department this evening with a chief complaint of a syncopal event. Patient states that approximately 1.5 hours prior to arrival he was walking to go to the bathroom when he blacked out and fell backwards. Patient states he woke up on the floor and had his call EMS. Patient denies any chest pain or shortness of breath, states he feels like he might of had some palpitations prior to passing out. On arrival here to the ED the patient is hemodynamically stable, he otherwise appears to be in no acute distress on my initial assessment. Patient states he does feel "woozy". He does not have any focal deficits on arrival. ROS: - Per HPI Differential Diagnosis: Hypoglycemic event, DKA, arrhythmia to include SVT, atrial fibrillation with RVR, ventricular tachycardia, ACS, vasovagal event, orthostatic syncope, amongst other potential pathologies. *Outpatient medications and allergy history reviewed. PE: General: Alert HEENT: Normocephalic, trachea midline Eyes: Extraocular eye movement is intact, no scleral erythema Pulmonary: Clear to auscultation bilaterally, no wheezing Cardio: Regular rate and rhythm GI: Abdomen is soft to palpation : No suprapubic tenderness MSK: No evidence of trauma or malformation of the extremities, no edema Skin: No evidence of rash Neuro: Alert, no focal deficits, equal bilateral instrument maker and repairer strength, symmetrical facial movements are appreciated Psychiatric: Cooperative INDEPENDENT INTERPRETATIONS: child monitor: (As interpreted by myself): - An order was placed for continuous cardiac monitoring - Patient was noted to be in sinus rhythm with a rate of 68 EKG: (As interpreted by myself): Rate: 68 Rhythm: Normal sinus rhythm Intervals: QRS 130 ms, otherwise within normal limits (new left bundle branch block noted) ST changes: No ST elevation Time: 0259 Chest x-ray: (As interpreted by myself): No acute disease Interventions provided in ED: -IV fluid bolus, IV magnesium Medical Decision Making: IV was established and lab work obtained, patient was placed on lunchroom monitor. Lab work shows a leukocytosis of 15.2, hemoglobin is stable at 13.9, platelet count is normal, CMP shows a mild hyponatremia 135, BUN is elevated at 33 and creatinine is elevated at 1.74, magnesium is low at 1.4. Blood glucose level is 131 on arrival, troponin is negative. Procalcitonin is low. Chest x-ray does not show any evidence of acute disease per my interpretation. CT imaging of the head was obtained that does not show any evidence of any acute intracranial process. Upon review of the patient's EKG, he is noted to have a new left bundle branch block, in conjunction with a syncopal event this evening I think he should be admitted to the hospital for further inpatient monitoring and echocardiogram. I discussed this with the patient and he is in agreement. [facility] hospitalist service was consulted for admission. Patient was placed for admission in stable condition. Consultants/Discussions held with other healthcare providers: -Hospitalist, Dr. Medina Disposition discussion held by myself with: -Patient Diagnosis: 1. Syncope and collapse, acute 2. Left bundle branch block on EKG, acute 3. Hypomagnesemia, acute 4. Leukocytosis, acute, nonspecific Disposition: Admission Yadiel Pfeiffer DO Emergency Medicine Past Med/Surg History Medical History (Updated 01/10/24 @ 04:02 by Yadiel Pfeiffer DO) Dizziness Venous stasis ulcer History of cardioversion Afib Peripheral neuropathy Osteoarthritis Kidney stones GERD (gastroesophageal reflux disease) Controlled with medication Diabetes mellitus, type 2 Controlled. No h/o hospitalization Anemia Depression Anxiety Attention deficit disorder (ADD) Fatigue Endocarditis NOVEMBER [address] FERGUSON Ejection fraction < 50% CURRENTLY 54 Congestive heart failure Hypertension Hyperlipidemia Sleep apnea Using BiPAP Congestive heart failure Kidney stone Elevated blood pressure reading Surgical History S/P bronchoscopy History of esophagogastroduodenoscopy (EGD) 04/16/18- 50mg prop, 2mg versed, 60mg lidocaine, 4mg zofran History of colonoscopy History of tooth extraction History of cardiac cath X 2 (LAST ONE 09/2017)-No stents Family History (Updated 07/02/22 @ 09:04 by Monica López) Father Diabetes Hypertension Grandfather Diabetes Mother Breast cancer Social History (Updated 06/05/22 @ 16:10 by Nadine Medrano) Smoking Status: Never smoker Second Hand Exposure: No; Do You Dip or Chew Tobacco: No; Hx Alcohol Use: No Hx Substance Use: No Preferred Language: Kyrgyz Communication Ability: Effective Visual Impairment: Limited Hearing Ability: Normal Retail Service Representative Required: No Beliefs That Will Affect Care: None marital status: SINGLE Current Living Situation: Significant Other current occupational status: unemployed current occupation: WORKS AT THE [email or web address] How many Children do You have: 0 Feels Safe at Home: Yes Childhood Exposure to Second-Hand Smoke: Yes Diet: low carbohydrate caffeine: Yes during the past year weight has: decreased > 10 lbs Physical Activity Frequency: Does not Exercise Seatbelt Use: always Sunscreen Use: Yes Assistive Devices: Glasses Allergies Allergies Allergy/AdvReac Type Severity Reaction Status Date / Time shellfish derived Allergy Severe SHORTNESS Verified 01/10/24 03:00 OF BREATH,SWELLING Echinacea Allergy Intermediate hives Verified 01/10/24 03:00 Penicillins Allergy Mild UNKNOWN-WAS Verified 01/10/24 03:00 YRS AGO-HAS TAKEN AMOXICILLIN WITHOUT PROBLEM Home Meds Home Medications Medication Instructions Recorded Confirmed vortioxetine 20 mg tablet 20 mg PO DAILY 12/11/22 01/10/24 (Trintellix) hydroxyzine HCl 25 mg tablet 25 mg PO BID PRN Anxiety 07/16/23 01/10/24 aripiprazole 5 mg tablet (Abilify) 5 mg PO HS 01/09/24 01/10/24 dulaglutide 4.5 mg/0.5 mL 4.5 mg subcut WK 01/10/24 01/10/24 subcutaneous pen injector (Trulicity) ergocalciferol (vitamin D2) 1,250 1,250 mcg PO 2XWK 01/10/24 01/10/24 mcg (50,000 unit) capsule (Vitamin D2) Previous Rx's Medication Instructions Recorded metformin 1,000 mg tablet 1,000 mg PO BID 90 days #180 tabs 12/10/22 atorvastatin 10 mg tablet 10 mg PO HS #90 tabs 07/16/23 blood-glucose sensor (FreeStyle #2 ea 07/16/23 Nataliia 3 Sensor device) insulin degludec 100 unit/mL (3 30 unit (0.3 mL) subcut DAILY #15 07/16/23 mL) subcutaneous pen (Tresiba mL FlexTouch U-100 insulin) pantoprazole 40 mg tablet,delayed 40 mg PO DAILY #90 tabs 07/16/23 release (Protonix) albuterol sulfate 90 mcg/actuation 2 puff inhalation Q6H PRN 08/23/23 aerosol inhaler shortness of breath or wheezing #6.7 grams carvedilol 12.5 mg tablet 12.5 mg PO TID #270 tabs 12/24/23 spironolactone 25 1 tab PO BID #180 tabs 12/24/23 mg-hydrochlorothiazide 25 mg tablet valsartan 80 mg tablet 80 mg PO BID #180 tabs 12/24/23 Results & Data (ED) Vital Signs Vital Signs - 24 hr 01/10/24 02:52 01/10/24 02:57 Temperature 37.1 C Temperature Source Oral Pulse Rate 71 65 Pulse Rhythm Regular Regular Pulse Strength Normal Respiratory Rate 16 16 Respiratory Effort / Characteristics Non-Labored Respiratory Depth Normal Respiratory Pattern Regular Blood Pressure 95/48 L Blood Pressure Mean 63 Blood Pressure Position Lying Pulse Oximetry 96 94 Oxygen Delivery Method Room Air Room Air Sepsis Recent Fever Within 48 Hours No Sepsis New/Unexplained Change in Mental Status No Sepsis Action Taken by Nursing No Action Required Laboratory Data 01/10/24 02:50 01/10/24 02:50 Lab Results 01/10/24 01/10/24 Range/Units 02:50 02:54 WBC 15.20 H (4.8-10.8) K/ul RBC 5.42 (4.70-6.10) M/uL Hgb 13.9 L (14.0-18.0) g/dl Hct 41.0 L (42.0-52.0) % MCV 75.6 L (80.0-100.0) fL MCH 25.6 (25.0-34.0) pg MCHC 33.9 (32.0-36.0) g/dL RDW Std Deviation 35.9 L (36.4-46.3) fL RDW Coeff of Long 13.4 (11.5-14.5) % Plt Count 298 (130-400) K/uL MPV 10.6 (9.4-12.4) fL Sodium 135 L (136-145) mmol/L Potassium 3.6 D (3.5-5.1) mmol/L Chloride 100 (98-107) mmol/L Carbon Dioxide 23 (21-32) mmol/L Anion Gap 12 H (3-11) BUN 33 H (6-23) mg/dl Creatinine 1.74 H (0.6-1.4) mg/dl Est Cr Clr Drug Dosing 66.7 ml/min Est GFR ( Amer) 50.4 ml/min Est GFR (Non-Af Amer) 43.5 ml/min BUN/Creatinine Ratio 19.0 (10-20) Glucose 99 (70-99(Fasting)) mg/dl POC Glucose 131 H (70-99) mg/dl Calcium 9.1 (8.6-10.3) mg/dl Magnesium 1.4 L (1.7-2.4) mg/dl Total Bilirubin 0.3 (0.2-1.0) mg/dl AST 14 (13-39) U/L ALT 13 (7-52) U/L Alkaline Phosphatase 60 (34-104) U/L Troponin I High Sens 6.7 (0-20) pg/ml Total Protein 6.7 (6.0-8.3) gm/dl Albumin 4.0 (3.4-5.0) gm/dl Globulin 2.7 (2.5-4.0) gm/dl Albumin/Globulin Ratio 1.5 (0.9-2) Lipase 45 (11-82) U/L Procalcitonin 0.11 (0-0.5) ng/ml Administered Medications Discontinued Medications Sodium Chloride (Nss) 500 mls @ 999 mls/hr IV .Q31M ONE Stop: 01/10/24 03:27 Last Infusion: 01/10/24 03:36 Dose: Infused Documented By: Admin: 01/10/24 03:04 Dose: 999 mls/hr Documented By: SAM Imaging Data Radiologist's Impression: Head CT 01/10/24 02:57 Exam(s): CT HEAD Without Contrast EXAM: CT Head Without Intravenous Contrast CLINICAL HISTORY: Reason for exam: fall. TECHNIQUE: Axial computed tomography images of the head/brain without intravenous contrast. CTDI is 35.92 mGy and DLP is 625.8 mGy-cm. Automated exposure control was utilized for the study. A dose lowering technique was utilized adhering to the principles of ALARA. COMPARISON: No relevant prior studies available. FINDINGS: No acute intracranial hemorrhage. No midline shift or mass effect. The territorial carter-white matter differentiation is maintained throughout. The ventricles and sulci are commensurate with age. The visualized orbits appear grossly unremarkable. The calvarium is intact. The visualized paranasal sinuses and mastoid air cells are grossly clear. IMPRESSION: No acute intracranial hemorrhage, midline shift, or mass effect. Electronically signed by: Bj Clement MD 01/10/24 03:39 AM Discharge Plan Visit Data Chief Complaint: Hyperglycemia Stated Complaint: Hyperglycemia, Syncope ED Provider: Yadiel Pfeiffer Discharge Problem: Syncope and collapse Forms Stand Alone Forms: My [facility] Contorion Prescriptions Prescriptions: No Action metformin 1,000 mg tablet 1,000 mg PO BID 90 Days Qty: 180 3RF carvedilol 12.5 mg tablet 12.5 mg PO TID Qty: 270 0RF valsartan 80 mg tablet 80 mg PO BID Qty: 180 0RF spironolacton-hydrochlorothiaz 25-25 mg tablet 1 tab PO BID Qty: 180 0RF aripiprazole [Abilify] 5 mg tablet 5 mg PO HS albuterol sulfate 90 mcg/actuation HFA aerosol inhaler 2 puff inhalation Q6H PRN (Reason: shortness of breath or wheezing) Qty: 6.7 0RF Trintellix 20 mg tablet 20 mg PO DAILY hydroxyzine HCl 25 mg tablet 25 mg PO BID PRN (Reason: Anxiety) (DME) FreeStyle Nataliia 3 Sensor Device See Rx Instructions .Route Qty: 2 11RF Rx Instructions: As directed pantoprazole [Protonix] 40 mg tablet,delayed release (DR/EC) 40 mg PO DAILY Qty: 90 3RF insulin degludec [Tresiba FlexTouch U-100] 100 unit/mL (3 mL) insulin pen 30 unit subcut DAILY Qty: 15 11RF atorvastatin 10 mg tablet 10 mg PO HS Qty: 90 3RF ergocalciferol (vitamin D2) [Vitamin D2] 1,250 mcg (50,000 unit) capsule 1,250 mcg PO 2XWK Trulicity 4.5 mg/0.5 mL pen injector 4.5 mg subcut WK Referrals Referrals: Italo López MD [Primary Care Provider] -
[2024-01-10] MEDS: SODIUM CHLORIDE 0.9% 500 ML IV ONE (03:04)
[2024-01-10 03:13] LABS: Hemoglobin 13.9 g/dl (14.0-18.0); Mean Corpuscular Hemoglobin 25.6 pg (25.0-34.0); Mean Corpuscular Hgb Conc 33.9 g/dL (32.0-36.0); Mean Corpuscular Volume 75.6 fL (80.0-100.0); Mean Platelet Volume 10.6 fL (9.4-12.4); Platelet Count 298 K/uL (130-400); RDW Coefficient of Variation 13.4 % (11.5-14.5); RDW Standard Deviation 35.9 fL (36.4-46.3); Red Blood Count 5.42 M/uL (4.70-6.10)
[2024-01-10 03:31] LABS: Albumin Globulin Ratio 1.5 (0.9-2); Bilirubin,Total 0.3 mg/dl (0.2-1.0); Calcium 9.1 mg/dl (8.6-10.3); Creatinine Clr Calc Pharmacy 66.7 ml/min; Est GFR (African American) 50.4 ml/min; Est GFR (Non-African American) 43.5 ml/min; Globulin 2.7 gm/dl (2.5-4.0); Magnesium 1.4 mg/dl (1.7-2.4); Potassium 3.6 mmol/L (3.5-5.1); Total Protein 6.7 gm/dl (6.0-8.3)
--- NOTE | 2024-01-10 03:40 | CT Scan Report ---
Exam(s): CT HEAD Without Contrast EXAM: CT Head Without Intravenous Contrast CLINICAL HISTORY: Reason for exam: fall. TECHNIQUE: Axial computed tomography images of the head/brain without intravenous contrast. CTDI is 35.92 mGy and DLP is 625.8 mGy-cm. Automated exposure control was utilized for the study. A dose lowering technique was utilized adhering to the principles of ALARA. COMPARISON: No relevant prior studies available. FINDINGS: No acute intracranial hemorrhage. No midline shift or mass effect. The territorial carter-white matter differentiation is maintained throughout. The ventricles and sulci are commensurate with age. The visualized orbits appear grossly unremarkable. The calvarium is intact. The visualized paranasal sinuses and mastoid air cells are grossly clear. IMPRESSION: No acute intracranial hemorrhage, midline shift, or mass effect. Electronically signed by: Bj Clement MD 01/10/24 03:39 AM
[2024-01-10 03:48] LABS: Troponin I High Sensitivity 6.7 pg/ml (0-20)
[2024-01-10 04:09] LABS: Basophils # (auto) 0.15 K/uL (0.00-0.20); Eosinophils # (auto) 0.24 K/uL (0.00-0.50); Eosinophils % (auto) 1.6 %; Immature Granulocytes # (auto) 0.13 K/uL (0.01-0.20); Immature Granulocytes % (auto) 0.9 %; Lymphocytes # (auto) 8.23 K/uL (1.20-3.40); Lymphocytes % (auto) 54.1 %; Monocytes # (auto) 1.17 K/uL (0.11-0.59); Monocytes % (auto) 7.7 %; Neutrophils # (auto) 5.28 K/uL (1.40-6.50); Neutrophils % (auto) 34.7 %; Tear Drop Cells 1+
[2024-01-10 04:23] LABS: Influenza A virus by PCR Negative (Neg); Influenza B virus by PCR Negative (Neg); RSV by PCR Negative (Neg); SARS CoV2 RNA(COVID-19) Ceph NEGATIVE (Negative)
--- NOTE | 2024-01-10 04:26 | History & Physical Report ---
Date of Service January 10, 2024 Assessment & Plan (1) Syncope and collapse: (2) Mood disorder: (3) Attention deficit disorder (ADD): (4) Type 2 diabetes mellitus with hyperglycemia: (5) Sleep apnea: (6) PAF (paroxysmal atrial fibrillation): (7) Left bundle branch block: (8) Nonischemic cardiomyopathy: (9) Hypertension: Plan Syncope and collapse- Main differential is that of hypoglycemia after taking a higher dose of Tresiba, cardiac dysrhythmia, PAF, new left bundle branch block, others Cardiac/new LBBB/PAF history- The patient will be admitted to telemetry for serial cardiac enzymes, serial EKG's, cardiac rhythm monitoring and a 2-D echocardiogram with Dopplers. Hold carvedilol Consult cardiology Acute kidney injury/hypomagnesemia/borderline potassium- Hold spironolactone/HCTZ and valsartan Giving magnesium sulfate 2 g IV for magnesium 1.4 Give Klor-Con 20 mEq p.o. for potassium of 3.6 Creatinine 1.74 on admission, with base 1.20 Received normal saline 500 mL from the ED Placed on NSS at 80 mL/h x 1 L Recheck laboratories renal function panel and magnesium level at 11 AM Diabetes mellitus/hyperglycemia/hypoglycemia- Patient reports he had not taken his Tresiba for several months because he thought his sugar was under control When he was told his glucose of 569 earlier this evening, he took 35 units of Tresiba on his own, and likely precipitated an issue with hypoglycemia Hold further Tresiba Hold metformin, Trulicity Placed on Accu-Cheks with NovoLog SSI Hypoglycemic protocol Psychiatry- Patient reports having started on aripiprazole 2 weeks ago, and felt he was having some palpitations since that time, and was to have an outpatient cardiology assessment. Hold for now History of Present Illness Chief Complaint: The patient presents to the emergency department after a syncopal episode, reporting that he fell sweaty like he does with blood sugar is low, was walking up the steps, got lightheaded and fell backwards and passed out for unknown interval time. Primary Care Provider: Italo López MD The patient is a 53-year-old male with a past medical history including Chronic diabetes mellitus, ADD, systolic heart failure, PSVT, chronic venous insufficiency, paroxysmal atrial fibrillation, hyperlipidemia, hypertension, nonischemic cardiomyopathy, gastric ulcer, unstable angina and kidney stones. Patient had gotten some lab work done earlier today, and received a call from the on-call physician for reports his glucose was 569. Patient reports that he took 35 units of Tresiba, which he had not taken for several months,, and reports that he had been checking his sugars sporadically over the past few months, and reports that they had high. He presented to the ED, was found to have a glucose of 99 on labs, creatinine was elevated 1.74, WBC was elevated 15.20, and EKG showed new left bundle branch block, all of which prompted referral for evaluation for admission. Allergies Allergy/AdvReac Type Severity Reaction Status Date / Time shellfish derived Allergy Severe SHORTNESS Verified 01/10/24 03:00 OF BREATH,SWELLING Echinacea Allergy Intermediate hives Verified 01/10/24 03:00 Penicillins Allergy Mild UNKNOWN-WAS Verified 01/10/24 03:00 YRS AGO-HAS TAKEN AMOXICILLIN WITHOUT PROBLEM Home Medications Medication Instructions Recorded Confirmed Type metformin 1,000 mg tablet 1,000 mg PO BID 90 days #180 tabs 12/10/22 01/10/24 Rx vortioxetine 20 mg tablet 20 mg PO DAILY 12/11/22 01/10/24 History (Trintellix) atorvastatin 10 mg tablet 10 mg PO HS #90 tabs 07/16/23 01/10/24 Rx blood-glucose sensor (FreeStyle #2 ea 07/16/23 01/09/24 Rx Nataliia 3 Sensor device) hydroxyzine HCl 25 mg tablet 25 mg PO BID PRN Anxiety 07/16/23 01/10/24 History insulin degludec 100 unit/mL (3 30 unit (0.3 mL) subcut DAILY #15 07/16/23 01/10/24 Rx mL) subcutaneous pen (Tresiba mL FlexTouch U-100 insulin) pantoprazole 40 mg tablet,delayed 40 mg PO DAILY #90 tabs 07/16/23 01/10/24 Rx release (Protonix) albuterol sulfate 90 mcg/actuation 2 puff inhalation Q6H PRN 08/23/23 01/10/24 Rx aerosol inhaler shortness of breath or wheezing #6.7 grams carvedilol 12.5 mg tablet 12.5 mg PO TID #270 tabs 12/24/23 01/10/24 Rx spironolactone 25 1 tab PO BID #180 tabs 12/24/23 01/10/24 Rx mg-hydrochlorothiazide 25 mg tablet valsartan 80 mg tablet 80 mg PO BID #180 tabs 12/24/23 01/10/24 Rx aripiprazole 5 mg tablet (Abilify) 5 mg PO HS 01/09/24 01/10/24 History dulaglutide 4.5 mg/0.5 mL 4.5 mg subcut WK 01/10/24 01/10/24 History subcutaneous pen injector (Trulicity) ergocalciferol (vitamin D2) 1,250 1,250 mcg PO 2XWK 01/10/24 01/10/24 History mcg (50,000 unit) capsule (Vitamin D2) Past Med/Surg History Medical History (Updated 01/10/24 @ 04:53 by Yonis Medina MD) Dizziness Venous stasis ulcer History of cardioversion Afib Peripheral neuropathy Osteoarthritis Kidney stones GERD (gastroesophageal reflux disease) Controlled with medication Diabetes mellitus, type 2 Controlled. No h/o hospitalization Anemia Depression Anxiety Attention deficit disorder (ADD) Fatigue Endocarditis NOVEMBER [address] FERGUSON Ejection fraction < 50% CURRENTLY 54 Congestive heart failure Hypertension Hyperlipidemia Sleep apnea Using BiPAP Congestive heart failure Kidney stone Elevated blood pressure reading Surgical History S/P bronchoscopy History of esophagogastroduodenoscopy (EGD) 04/16/18- 50mg prop, 2mg versed, 60mg lidocaine, 4mg zofran History of colonoscopy History of tooth extraction History of cardiac cath X 2 (LAST ONE 09/2017)-No stents Family History (Updated 07/02/22 @ 09:04 by Monica López) Father Diabetes Hypertension Grandfather Diabetes Mother Breast cancer Social History (Updated 06/05/22 @ 16:10 by Nadine Medrano) Smoking Status: Never smoker Second Hand Exposure: No; Do You Dip or Chew Tobacco: No; Hx Alcohol Use: No Hx Substance Use: No Preferred Language: Mohawk Communication Ability: Effective Visual Impairment: Limited Hearing Ability: Normal Trim Operator Required: No Beliefs That Will Affect Care: None marital status: SINGLE Current Living Situation: Significant Other current occupational status: unemployed current occupation: WORKS AT THE [employer] How many Children do You have: 0 Feels Safe at Home: Yes Childhood Exposure to Second-Hand Smoke: Yes Diet: low carbohydrate caffeine: Yes during the past year weight has: decreased > 10 lbs Physical Activity Frequency: Does not Exercise Seatbelt Use: always Sunscreen Use: Yes Assistive Devices: Glasses Review of Systems Review of Systems: The patient denies chest pain, palpitations, shortness of breath, dyspnea on exertion, cough, lower extremity swelling, sore throat, fevers, chills, sweats, weight change, fatigue, nausea, vomiting, diarrhea , constipation, abdominal pain, pelvic pain, blood in urine or stool, dysuria, urinary frequency or urgency, rash, abnormal bruising or bleeding, focal weakness, numbness or tingling in arms or legs, generalized arthralgias or myalgias, back or neck pain, or night sweats. The review of systems is otherwise negative other than for that already noted above, and at least 10 systems have been reviewed. Physical Exam Physical Exam: The patient is awake, alert and oriented 3, well developed and well nourished, normocephalic and atraumatic, lying in bed and in no acute distress. HEENT--PERRL, EOMI, mucous membranes and oropharynx mildly dry. Neck--supple. No JVD. No bruits. Thyroid normal, trachea midline, no adenopathy. Heart--normal S1 and S2. No murmurs, rubs or gallops. Lungs--clear bilaterally, no respiratory distress, no accessory muscle use. Abdomen--normal bowel sounds and soft. Nontender. Nondistended. Obese Extremities--no cyanosis or clubbing. No edema. Dermatologic--normal skin turgor, normal color, no abnormal lymph nodes, no rash. Neurologic--cranial nerves II through XII grossly intact. Rheumatologic--normal range of motion. Psychiatric--normal affect. Results & Data Results & Data Vital Signs (Past 12 Hours) Vital Signs Temp Pulse Resp BP Pulse Ox O2 Del Method 01/10/24 02:57 65 16 94 Room Air 01/10/24 02:52 37.1 C 71 16 95/48 L 96 Room Air Laboratory Results Laboratory Results WBC 15.20 K/ul (4.8-10.8) H 01/10/24 02:50 RBC 5.42 M/uL (4.70-6.10) 01/10/24 02:50 Hgb 13.9 g/dl (14.0-18.0) L 01/10/24 02:50 Hct 41.0 % (42.0-52.0) L 01/10/24 02:50 MCV 75.6 fL (80.0-100.0) L 01/10/24 02:50 MCH 25.6 pg (25.0-34.0) 01/10/24 02:50 MCHC 33.9 g/dL (32.0-36.0) 01/10/24 02:50 RDW Std Deviation 35.9 fL (36.4-46.3) L 01/10/24 02:50 RDW Coeff of Long 13.4 % (11.5-14.5) 01/10/24 02:50 Plt Count 298 K/uL (130-400) 01/10/24 02:50 MPV 10.6 fL (9.4-12.4) 01/10/24 02:50 Immature Gran % (Auto) 0.9 % 01/10/24 02:50 Neut % (Auto) 34.7 % 01/10/24 02:50 Lymph % (Auto) 54.1 % 01/10/24 02:50 [place] % (Auto) 7.7 % 01/10/24 02:50 Eos % (Auto) 1.6 % 01/10/24 02:50 Baso % (Auto) 1.0 % 01/10/24 02:50 Neut # (Auto) 5.28 K/uL (1.40-6.50) 01/10/24 02:50 Lymph # (Auto) 8.23 K/uL (1.20-3.40) H 01/10/24 02:50 [place] # (Auto) 1.17 K/uL (0.11-0.59) H 01/10/24 02:50 Eos # (Auto) 0.24 K/uL (0.00-0.50) 01/10/24 02:50 Baso # (Auto) 0.15 K/uL (0.00-0.20) 01/10/24 02:50 Immature Gran # (Auto) 0.13 K/uL (0.01-0.20) 01/10/24 02:50 Tear Drop Cells 1+ 01/10/24 02:50 Sodium 135 mmol/L (136-145) L 01/10/24 02:50 Potassium 3.6 mmol/L (3.5-5.1) D 01/10/24 02:50 Chloride 100 mmol/L (98-107) 01/10/24 02:50 Carbon Dioxide 23 mmol/L (21-32) 01/10/24 02:50 Anion Gap 12 (3-11) H 01/10/24 02:50 BUN 33 mg/dl (6-23) H 01/10/24 02:50 Creatinine 1.74 mg/dl (0.6-1.4) H 01/10/24 02:50 Est Cr Clr Drug Dosing 66.7 ml/min 01/10/24 02:50 Est GFR ( Amer) 50.4 ml/min 01/10/24 02:50 Est GFR (Non-Af Amer) 43.5 ml/min 01/10/24 02:50 BUN/Creatinine Ratio 19.0 (10-20) 01/10/24 02:50 Glucose 99 mg/dl (70-99(Fasting)) 01/10/24 02:50 POC Glucose 131 mg/dl (70-99) H 01/10/24 02:54 Calcium 9.1 mg/dl (8.6-10.3) 01/10/24 02:50 Magnesium 1.4 mg/dl (1.7-2.4) L 01/10/24 02:50 Total Bilirubin 0.3 mg/dl (0.2-1.0) 01/10/24 02:50 AST 14 U/L (13-39) 01/10/24 02:50 ALT 13 U/L (7-52) 01/10/24 02:50 Alkaline Phosphatase 60 U/L (34-104) 01/10/24 02:50 Troponin I High Sens 6.7 pg/ml (0-20) 01/10/24 02:50 Total Protein 6.7 gm/dl (6.0-8.3) 01/10/24 02:50 Albumin 4.0 gm/dl (3.4-5.0) 01/10/24 02:50 Globulin 2.7 gm/dl (2.5-4.0) 01/10/24 02:50 Albumin/Globulin Ratio 1.5 (0.9-2) 01/10/24 02:50 Lipase 45 U/L (11-82) 01/10/24 02:50 Procalcitonin 0.11 ng/ml (0-0.5) 01/10/24 02:50 SARS-CoV-2 (PCR) NEGATIVE (Negative) 01/10/24 Unknown Influenza Type A (PCR) Negative (Neg) 01/10/24 Unknown Influenza Type B (PCR) Negative (Neg) 01/10/24 Unknown RSV (RT-PCR) Negative (Neg) 01/10/[address] 01/10/24 02:57 Exam(s): CT HEAD Without Contrast EXAM: CT Head Without Intravenous Contrast CLINICAL HISTORY: Reason for exam: fall. TECHNIQUE: Axial computed tomography images of the head/brain without intravenous contrast. CTDI is 35.92 mGy and DLP is 625.8 mGy-cm. Automated exposure control was utilized for the study. A dose lowering technique was utilized adhering to the principles of ALARA. COMPARISON: No relevant prior studies available. FINDINGS: No acute intracranial hemorrhage. No midline shift or mass effect. The territorial carter-white matter differentiation is maintained throughout. The ventricles and sulci are commensurate with age. The visualized orbits appear grossly unremarkable. The calvarium is intact. The visualized paranasal sinuses and mastoid air cells are grossly clear. IMPRESSION: No acute intracranial hemorrhage, midline shift, or mass effect. Electronically signed by: Bj Clement MD 01/10/24 03:39 AM Code Status & VTE Plan Code Status Full code VTE Prophylaxis Plan VTE Prophylaxis will be ordered: Yes PG Care Time/CCT Total # of Minutes Spent Total Time Spent with Patient: Total time spent is greater than 50% in coordination of care (as documented) at patient's floor/unit and/or counseling patient: Coding Level of Care Code 40534 INT INP/OBS CARE 3/75MIN Diagnoses Syncope and collapse R55 Mood disorder F39 Attention deficit disorder (ADD) F98.8 Type 2 diabetes mellitus with hyperglycemia E11.65 Sleep apnea G47.30 PAF (paroxysmal atrial fibrillation) I48.0 Left bundle branch block I44.7 Nonischemic cardiomyopathy I42.8 Hypertension I10
[2024-01-10] MEDS: POTASSIUM CHLORIDE CRTAB 20 MEQ TABCR PO STA (04:37)
[2024-01-10] MEDS: MAGNESIUM SULFATE / D5W 1 GM/100 ML BAG IV SCH (04:37)
[2024-01-10] MEDS: SODIUM CHLORIDE 0.9% 1,000 ML IV SCH (04:38)
[2024-01-10] MEDS ORDERED: hydrOXYzine HCl 25 MG TAB PO PRN (04:55)
[2024-01-10] MEDS ORDERED: GLUCOSE 10 TAB/TUBE PO PRN (04:55)
[2024-01-10] MEDS ORDERED: CARBOHYDRATES FOR HYPOGLYCEMIA PO PRN (04:55)
[2024-01-10] MEDS ORDERED: ALBUTEROL HFA 8 GM INHALER INH PRN (04:55)
[2024-01-10] MEDS ORDERED: ACETAMINOPHEN 325 MG TAB PO PRN (04:55)
[2024-01-10] MEDS ORDERED: GLUCAGON FOR INJ 1 MG VIAL SQ PRN (04:55)
[2024-01-10] MEDS ORDERED: GLUCOSE 40% GEL 15 GM TUBE PO PRN (04:55)
[2024-01-10] MEDS ORDERED: DEXTROSE 50% 50 ML SYRINGE IV PRN (04:55)
[2024-01-10 05:15] LABS: Appearance Urine Cloudy (Clear); Bacteria Urine Automated None Seen (None Seen); Bilirubin Urine Negative (Negative); Blood Urine Negative (Negative); Cast Urine Automated >20 /lpf (0-2); Color Urine Dark Yellow; Glucose Urine UA 1+ (Negative); Ketones Urine 1+ (Negative); Leukocyte Esterase Urine Negative (Negative); Nitrite Urine Negative (Negative); Protein Urine 1+ (Negative); RBC Urine Automated 0-2 /hpf (0-2); Specific Gravity Urine 1.028 (1.000-1.030); Urobilinogen Urine Negative (Negative); WBC Urine Automated 0-5 /hpf (0-5)
[2024-01-10 05:25] LABS: Calcium Oxalate Crystals Urine Present (None Prsent)
[2024-01-10 05:26] LABS: Granular Casts Urine Present /lpf (None Prsent)
--- NOTE | 2024-01-10 07:52 | XRay Report ---
XR chest 1V portable HISTORY: Chest pain, nonspecific COMPARISON: Chest 12/16/2020. FINDINGS: No pneumothorax. No pleural effusions. The lungs are clear. The cardiac silhouette is top n ormal in size. No acute fractures. IMPRESSION: No acute process. ACT 112: Negative or not required by law. Electronically signed by: Stephen Day M.D. 01/10/2024 7:51 AM
[2024-01-10] MEDS: PANTOprazole 40 MG TAB PO SCH (08:12)
[2024-01-10] MEDS: carvediloL 12.5 MG TAB PO SCH (08:13)
[2024-01-10] MEDS: INSULIN ASPART PER UNIT CHARGE SC SCH (09:24)
--- NOTE | 2024-01-10 12:18 | Hospitalist Progress Note ---
Date of Service January 10, 2024 Assessment & Plan (1) Syncope and collapse: (2) Mood disorder: (3) Attention deficit disorder (ADD): (4) Type 2 diabetes mellitus with hyperglycemia: (5) Sleep apnea: (6) PAF (paroxysmal atrial fibrillation): (7) Left bundle branch block: (8) Nonischemic cardiomyopathy: (9) Hypertension: Plan Syncope and collapse- Main differential is that of hypoglycemia after taking a higher dose of Tresiba, cardiac dysrhythmia, PAF, new left bundle branch block, others Cardiac/new LBBB/PAF history- The patient will be admitted to telemetry for serial cardiac enzymes, serial EKG's, cardiac rhythm monitoring and a 2-D echocardiogram with Dopplers. Hold carvedilol Consult cardiology Acute kidney injury/hypomagnesemia/borderline potassium- Hold spironolactone/HCTZ and valsartan Giving magnesium sulfate 2 g IV for magnesium 1.4- maintain Mg above 2 Given Klor-Con 20 mEq p.o. for potassium of 3.6- maintain K+ above 4 Creatinine 1.74 on admission, with base 1.20 Received normal saline 500 mL from the ED Placed on NSS at 80 mL/h x 1 L Diabetes mellitus/hyperglycemia/hypoglycemia- Hold further Tresiba, metformin, Trulicity Placed on Accu-Cheks with NovoLog SSI Hypoglycemic protocol basal + sliding scale SQ insulin started MDD Started on aripiprazole 2 weeks ago - hold for now Palpations- Normal QT interval on EKG. f/u with outpatient cardiology Admission and Anticipated Discharge Date Admission Date: January 10, 2024 Supervising Physician Co-Signing Physician Notes RESIDENT PHYSICIAN ATTESTATION I independently examined the patient and discussed the case with FUNMI Caraballo. I agree with the assessment and plan noted above. -Claude Tamez MD ATTENDING PHYSICIAN ATTESTATION Syncope - concern of hypoglycemia from insulin. keep on tele to r/o arrhythmia - noted monica. echo pending. New LBBB noted. Orthostatics neg. Sinus bradycardia - coreg doses have been held d/t hold parameters. possibly contributed to syncope. follow. AL - resolved. MDD - recently started on aripiprazole 2 wks ago. Normal QTc. No orthostasis. Held on admission - consider resuming. Subjective 53 year old male patient with hx of DM, ADD MDD, systolic heart failure, sleep apnea, chronic venous insufficiency, paroxysmal SVT, reduced EF, cardiomyopathy, HLD, HTN, gastric ulcer, unstable angina, kidney stone, and endocarditis presenting to the ED after falling due to lightheadedness and dizziness. Patient reported having cold sweats prior to passing out, hitting his head and lossing consciousness for a couple of seconds. Patient had generalized muscle weakness and fogginess after waking up. Patient reports that he had heart palpitations 2 years ago which resolved after an intentional 180 lb weight loss over the course of 2 years but has started feeling palpitations again. Previously in the node 303 trial for SVT. Patient arrived in the ED with a glucose level of 569 which prompted him to take 35 units of Tresiba, putting him into hypoglycemia. Currently home regimen includes metformin 1gm BID for his diabetes. Stopped taking Trulicity for 2 weeks after noticing his blood glucose in the lower range. Has not received his Dexcom yet. Also reports feeling episodic rapid onset fatigue that resolves in 1/2 to 3 hours throughout the day. Notes that his symptoms of lightheadedness, palpitations and fatigue began after starting on Abilify 2 weeks ago. Review of Systems Review of Systems: Denies chest pain, shortness of breath, dyspnea on exertion, cough, sore throat, fevers, chills, nausea, vomiting, diarrhea , constipation, abdominal pain, blood in urine or stool, dysuria, urinary frequency or urgency, rash, abnormal bruising or bleeding, generalized arthralgias or myalgias + memory changes, night sweats during ep isodes of hypoglycemia, mood changes, episodic bradykineasia, rapid onset episodic fatigue, and rash behind knees Physical Exam Physical Exam: The patient is awake, alert and oriented 3, well developed and well nourished, lying in bed and in no acute distress. HEENT--PERRL, EOMI, mucous membranes and oropharynx mildly dry. Neck--supple. No JVD. No bruits. Heart--normal S1 and S2. No murmurs, rubs or gallops. Lungs--clear bilaterally, no respiratory distress, no accessory muscle use. Abdomen--normal bowel sounds and soft. Nontender. Nondistended. Obese Extremities--strength 5/5 in upper and lower extremity. No edema. Dermatologic--rash in popliteal fossa Neurologic--cranial nerves II through XII grossly intact. Results & Data Results & Data Vital Signs (Past 12 Hours) Vital Signs Temp Pulse Pulse Resp BP BP Pulse Ox 01/10/24 04:54 37.0 C 57 L 18 113/62 96 01/10/24 04:02 63 01/10/24 02:57 65 16 94 01/10/24 02:52 37.1 C 71 16 95/48 L 96 O2 Del Method 01/10/24 04:54 Room Air 01/10/24 04:02 01/10/24 02:57 Room Air 01/10/24 02:52 Room Air
[2024-01-10 12:51] LABS: Albumin Level 3.5 gm/dl (3.4-5.0); BUN Creatinine Ratio 23.5 (10-20); Calcium 8.1 mg/dl (8.6-10.3); Creatinine Clr Calc Pharmacy 87.9 ml/min; Est GFR (African American) 70.4 ml/min; Est GFR (Non-African American) 60.7 ml/min; Magnesium 1.8 mg/dl (1.7-2.4); Phosphorus 3.3 mg/dl (2.5-4.9); Potassium 3.9 mmol/L (3.5-5.1)
--- NOTE | 2024-01-10 16:02 | Cardiology Consultation ---
Date of Consultation January 10, 2024 Assessment & Plan (1) Syncope and collapse: (2) Left bundle branch block: (3) PSVT (paroxysmal supraventricular tachycardia): (4) PAF (paroxysmal atrial fibrillation): (5) Nonischemic cardiomyopathy: Plan 1. Syncope: His syncopal episode is worrisome, he may not have been totally unconscious since he remembers the fall and remembers being confused afterwards, but the episode was somewhat prolonged. It is certainly possible it was an arr hythmia, more likely bradycardia not tachycardia, but either is possible. He has a history of SVT and atrial fibrillation but does not recall having this type of symptoms when he had it, it is mostly characterized by palpitations. I would certainly keep him on the monitor here, if we do not find anything we may be forced to consider some type of long-term monitoring to see whether we can identify an arrhythmia. 2. Left bundle branch block: His left bundle branch block is suggestive of a more serious conduction abnormality and perhaps he had transient heart block causing this episode. We do not know the duration of the left bundle branch block but it was not present in 2020, that would not necessarily help us. If we see some amount of heart block (even without symptoms) that may be suggestive of this as a cause. At the moment I would just monitor and not consider further evaluation. If this has been somewhat longstanding it could contribute to a cardiomyopathy, it could also be the result of it. I think we need an echocardiogram and I do not think 1 was done as yet this admission. I also going to get a Lyme screen. 3. SVT: I believe he has some type of SVT, I did not look into that in detail but he did not have symptoms of it so unless his symptoms change that is not likely a cause of his event. 4. Atrial fibrillation: He has had paroxysmal atrial fibrillation but he does not believe this was atrial fibrillation, in the past he has been very aware of it and he is on some degree of rate control. That is not likely to cause syncope. He is not on an anticoagulant since the episodes have mostly resolved and he has not been followed very closely for several years. Perhaps he should be, this could be investigated. 5. Nonischemic cardiomyopathy: He has a history of a cardiomyopathy, I believe it is nonischemic although I do not know the details of that evaluation. His ejection fraction has not been terribly reduced but has been in the 40 to 50% range but without a measurement that I know of since 2020. If his ejection fraction has dropped that may alter our approach significantly and I do need an echocardiogram. For the moment I am not changing his heart failure medications. History of Present Illness Reason for Consultation: Atrial fibrillation, syncope, left bundle branch block Attending Physician: Veronique Turner MD History of Present Illness This is a 53-year-old male with a history of systolic heart failure, diabetes mellitus, paroxysmal atrial fibrillation and more recently a syncopal event. We did follow him in the past although the last time we saw him was in December 2020 (Dr. Rice) however since then I believe has followed with [facility] (Dr. Diaz) although he has not seen them recently. He was following for his SVT and paroxysmal atrial fibrillation. He presented to the emergency room on January 09, 2024 having had a syncopal event while walking to the bathroom. He describes to me having some type of prodrome where he did not feel well and he remembers falling, he remembers striking his head slightly on the side but must have been nearly unconscious. He also describes not waking up quickly, he felt confused and felt that he could not stand up for some time afterwards. He thinks he might have felt poorly for about 15 minutes before he fell and then for an hour before he felt back to normal afterwards. His called the emergency medical service. He has been having some palpitations, he describes having no palpitations for a long time and then after he started taking Abilify he started to get occasional palpitations but these have mostly resolved and he does not recall that same sensation before passing out. In the emergency room and as far as I know when rescue arrived he was stable hemodynamically. He is also lost a great deal of weight, he has lost about 180 pounds over 2 years but has lost about 40 pounds over the last 3 to 4 months. That has caused difficulty with his blood sugar regulation. He does have a history of cardiomyopathy and has been treated for it. I have not seen an echocardiogram since 2019 in our records, there is a note in [facility] records from February 2021 stating that on guideline directed medical therapy his EF was 45 to 50% but the left ventricle was greater than 6 cm. I do not know that he has had an echo since. Laboratory studies are generally noncontributory although his magnesium is low at 1.4. His creatinine was elevated to 1.7, his high-sensitivity troponin was negative. His electrocardiogram however showed a left bundle branch block pattern with a QRS duration of 130 ms, this is new compared to our last electrocardiogram from 2020 but I do not have interim electrocardiograms. He believes he probably had 1 at [facility] about a year ago and we could check on that. He has had no symptoms since admission. Allergies Allergy/AdvReac Type Severity Reaction Status Date / Time shellfish derived Allergy Severe SHORTNESS Verified 01/10/24 03:00 OF BREATH,SWELLING Echinacea Allergy Intermediate hives Verified 01/10/24 03:00 Penicillins Allergy Mild UNKNOWN-WAS Verified 01/10/24 03:00 YRS AGO-HAS TAKEN AMOXICILLIN WITHOUT PROBLEM Home Medications Medication Instructions Recorded Confirmed Type metformin 1,000 mg tablet 1,000 mg PO BID 90 days #180 tabs 12/10/22 01/10/24 Rx vortioxetine 20 mg tablet 20 mg PO DAILY 12/11/22 01/10/24 History (Trintellix) atorvastatin 10 mg tablet 10 mg PO HS #90 tabs 07/16/23 01/10/24 Rx blood-glucose sensor (FreeStyle #2 ea 07/16/23 01/09/24 Rx Nataliia 3 Sensor device) hydroxyzine HCl 25 mg tablet 25 mg PO BID PRN Anxiety 07/16/23 01/10/24 History insulin degludec 100 unit/mL (3 30 unit (0.3 mL) subcut DAILY #15 07/16/23 01/10/24 Rx mL) subcutaneous pen (Tresiba mL FlexTouch U-100 insulin) pantoprazole 40 mg tablet,delayed 40 mg PO DAILY #90 tabs 07/16/23 01/10/24 Rx release (Protonix) albuterol sulfate 90 mcg/actuation 2 puff inhalation Q6H PRN 08/23/23 01/10/24 Rx aerosol inhaler shortness of breath or wheezing #6.7 grams carvedilol 12.5 mg tablet 12.5 mg PO TID #270 tabs 12/24/23 01/10/24 Rx spironolactone 25 1 tab PO BID #180 tabs 12/24/23 01/10/24 Rx mg-hydrochlorothiazide 25 mg tablet valsartan 80 mg tablet 80 mg PO BID #180 tabs 12/24/23 01/10/24 Rx aripiprazole 5 mg tablet (Abilify) 5 mg PO HS 01/09/24 01/10/24 History blood-glucose meter,continuous #1 ea 01/10/24 01/10/24 Rx (Dexcom G7 Dual Hose Cementer) blood-glucose sensor (Dexcom G7 #3 Boxes 01/10/24 01/10/24 Rx Sensor device) dulaglutide 4.5 mg/0.5 mL 4.5 mg subcut WK 01/10/24 01/10/24 History subcutaneous pen injector (Trulicity) ergocalciferol (vitamin D2) 1,250 1,250 mcg PO 2XWK 01/10/24 01/10/24 History mcg (50,000 unit) capsule (Vitamin D2) Patient History Medical History Dizziness Venous stasis ulcer History of cardioversion Afib Peripheral neuropathy Osteoarthritis Kidney stones GERD (gastroesophageal reflux disease) Controlled with medication Diabetes mellitus, type 2 Controlled. No h/o hospitalization Anemia Depression Anxiety Attention deficit disorder (ADD) Fatigue Endocarditis NOVEMBER [address] FERGUSON Ejection fraction < 50% CURRENTLY 54 Congestive heart failure Hypertension Hyperlipidemia Sleep apnea Using BiPAP Congestive heart failure Kidney stone Elevated blood pressure reading Surgical History S/P bronchoscopy History of esophagogastroduodenoscopy (EGD) 04/16/18- 50mg prop, 2mg versed, 60mg lidocaine, 4mg zofran History of colonoscopy History of tooth extraction History of cardiac cath X 2 (LAST ONE 09/2017)-No stents Family History Father Diabetes Hypertension Grandfather Diabetes Mother Breast cancer Social History Smoking Status: Never smoker Second Hand Exposure: No; Do You Dip or Chew Tobacco: No; Hx Alcohol Use: No Hx Substance Use: No Preferred Language: Sinhala Communication Ability: Effective Visual Impairment: Limited Hearing Ability: Normal Infrastructure Security Architect Required: No Beliefs That Will Affect Care: None marital status: SINGLE Current Living Situation: Significant Other current occupational status: unemployed current occupation: WORKS AT THE [employer] How many Children do You have: 0 Feels Safe at Home: Yes Childhood Exposure to Second-Hand Smoke: Yes Diet: low carbohydrate caffeine: Yes during the past year weight has: decreased > 10 lbs Physical Activity Frequency: Does not Exercise Seatbelt Use: always Sunscreen Use: Yes Assistive Devices: Glasses Review of Systems Review of Systems: All systems reviewed & are unremarkable except as noted in HPI & below Physical Exam Physical Exam: Constitutional: Alert, cooperative and in no distress. He is overweight. HEENT: Unremarkable Neck: No jugular venous distention, carotid pulses are normal and equal bilaterally without bruits. Pulmonary: Clear to auscultation bilaterally. Cardiac: Regular rhythm with no murmur, gallop or rub. Abdomen: Soft, nontender with normal bowel sounds. Extremities: No edema. Distal pulses intact. Neurologic: No focal findings. Skin: No rash, ecchymoses or petechiae. Results & Data Vital Signs (Past 12 Hours) Vital Signs Temp Pulse Pulse Resp BP BP Pulse Ox 01/10/24 15:33 36.6 C 64 17 112/73 97 01/10/24 12:30 66 13 124/73 97 01/10/24 11:00 61 15 103/66 97 01/10/24 10:00 67 19 113/73 99 01/10/24 09:44 76 17 127/79 01/10/24 09:30 78 15 142/78 H 96 01/10/24 08:16 01/10/24 08:11 55 L 13 113/64 96 01/10/24 07:33 48 L 01/10/24 04:54 37.0 C 57 L 18 113/62 96 01/10/24 04:02 63 Pulse Ox O2 Del Method O2 Del Method 01/10/24 15:33 Room Air 01/10/24 12:30 01/10/24 11:00 Room Air 01/10/24 10:00 Room Air 01/10/24 09:44 01/10/24 09:30 Room Air 01/10/24 08:16 96 Room Air 01/10/24 08:11 Room Air 01/10/24 07:33 01/10/24 04:54 Room Air 01/10/24 04:02 Laboratory Results Cardiac Enzymes 01/10/24 Range/Units 02:50 AST 14 (13-39) U/L Troponin I High Sens 6.7 (0-20) pg/ml CBC 01/10/24 Range/Units 02:50 WBC 15.20 H (4.8-10.8) K/ul RBC 5.42 (4.70-6.10) M/uL Hgb 13.9 L (14.0-18.0) g/dl Hct 41.0 L (42.0-52.0) % Plt Count 298 (130-400) K/uL Neut # (Auto) 5.28 (1.40-6.50) K/uL Lymph # (Auto) 8.23 H (1.20-3.40) K/uL [place] # (Auto) 1.17 H (0.11-0.59) K/uL Eos # (Auto) 0.24 (0.00-0.50) K/uL Baso # (Auto) 0.15 (0.00-0.20) K/uL Comprehensive Metabolic Panel 01/10/24 01/10/24 Range/Units 02:50 10:36 Sodium 135 L 130 L (136-145) mmol/L Potassium 3.6 D 3.9 (3.5-5.1) mmol/L Chloride 100 102 (98-107) mmol/L Carbon Dioxide 23 20 L (21-32) mmol/L BUN 33 H 31 H (6-23) mg/dl Creatinine 1.74 H 1.32 D (0.6-1.4) mg/dl Glucose 99 354 H* (70-99(Fasting)) mg/dl Calcium 9.1 8.1 L (8.6-10.3) mg/dl AST 14 (13-39) U/L ALT 13 (7-52) U/L Alkaline Phosphatase 60 (34-104) U/L Total Protein 6.7 (6.0-8.3) gm/dl Albumin 4.0 3.5 (3.4-5.0) gm/dl Intake and Output 01/10/24 01/10/24 01/10/24 06:59 14:59 22:59 Intake Total 900 / 900 320 / 320 Output Total 1 / 1 Balance 900 / 900 319 / 319 Intake: IV 900 / 900 Magnesium Sulfate / D5w 1 gm In 200 / 200 100 ml @ 200 mls/hr IV Q30M HALIE Rx#:[id number] Sodium Chloride 0.9% 500 ml @ 500 / 500 999 mls/hr IV .Q31M ONE Rx#: [id number] Left Antecubital 200 / 200 Oral 320 / 320 Output: # Bowel Movements Other: # Unmeasured Voids 2 Weight 126.4 kg 123.105 kg Weight Measurement Method Built in Bedscale Standing Scale Patient Weight 01/11/24 06:59 Weight 123.105 kg PG Care Time/CCT Total # of Minutes Spent Total Time Spent with Patient: Total time spent is greater than 50% in coordination of care (as documented) at patient's floor/unit and/or counseling patient: Coding Level of Care Code 58445 IN/OBS CONSULT LVL 5,80M Diagnoses Syncope and collapse R55 Left bundle branch block I44.7 PSVT (paroxysmal supraventricular tachycardia) I47.1 PAF (paroxysmal atrial fibrillation) I48.0 Nonischemic cardiomyopathy I42.8
--- NOTE | 2024-01-10 18:02 | XCELERA ---
[id number] \\[email or web address]\[id number]
[2024-01-10] MEDS: LANTUS PER UNIT CHARGE SQ SCH (21:08)
[2024-01-10] MEDS: ARIPiprazole 5 MG TAB PO SCH (21:33)
[2024-01-10] MEDS: ATORVASTATIN 10 MG TAB PO SCH (21:34)
[2024-01-11 04:39] LABS: Basophils # (auto) 0.06 K/uL (0.00-0.20); Basophils % (auto) 0.7 %; Eosinophils # (auto) 0.16 K/uL (0.00-0.50); Hematocrit (blood only) 36.9 % (42.0-52.0); Hemoglobin 12.4 g/dl (14.0-18.0); Immature Granulocytes # (auto) 0.05 K/uL (0.01-0.20); Immature Granulocytes % (auto) 0.6 %; Lymphocytes # (auto) 3.74 K/uL (1.20-3.40); Lymphocytes % (auto) 45.9 %; Mean Corpuscular Hemoglobin 25.4 pg (25.0-34.0); Mean Corpuscular Hgb Conc 33.6 g/dL (32.0-36.0); Mean Corpuscular Volume 75.5 fL (80.0-100.0); Mean Platelet Volume 10.2 fL (9.4-12.4); Monocytes # (auto) 0.56 K/uL (0.11-0.59); Monocytes % (auto) 6.9 %; Neutrophils # (auto) 3.57 K/uL (1.40-6.50); Neutrophils % (auto) 43.9 %; Platelet Count 177 K/uL (130-400); RDW Coefficient of Variation 13.6 % (11.5-14.5); RDW Standard Deviation 36.6 fL (36.4-46.3); Red Blood Count 4.89 M/uL (4.70-6.10); White Blood Count 8.14 K/ul (4.8-10.8)
[2024-01-11 05:03] LABS: Albumin Globulin Ratio 1.4 (0.9-2); Albumin Level 3.5 gm/dl (3.4-5.0); BUN Creatinine Ratio 18.9 (10-20); Bilirubin,Total 0.6 mg/dl (0.2-1.0); Calcium 8.5 mg/dl (8.6-10.3); Creatinine Clr Calc Pharmacy 103.1 ml/min; Est GFR (African American) 86.8 ml/min; Est GFR (Non-African American) 74.9 ml/min; Globulin 2.5 gm/dl (2.5-4.0); Magnesium 1.6 mg/dl (1.7-2.4); Potassium 3.7 mmol/L (3.5-5.1)
[2024-01-11 07:09] LABS: Estimated Average Glucose 395 mg/dl; Hemoglobin A1C 15.4 % (4.5-5.6)
--- NOTE | 2024-01-11 07:31 | Hospitalist Progress Note ---
Date of Service January 11, 2024 Assessment & Plan (1) Syncope and collapse: (2) Mood disorder: (3) Attention deficit disorder (ADD): (4) Type 2 diabetes mellitus with hyperglycemia: (5) Sleep apnea: (6) PAF (paroxysmal atrial fibrillation): (7) Left bundle branch block: (8) Nonischemic cardiomyopathy: (9) Hypertension: Plan Syncope and collapse- Main differential is that of hypoglycemia after taking a higher dose of Tresiba, cardiac dysrhythmia, PAF, new left bundle branch block, others Cardiac/new LBBB/PAF history- The patient will be admitted to telemetry for serial cardiac enzymes, serial EKG's, cardiac rhythm monitoring and a 2-D echocardiogram with Dopplers. Hold carvedilol Consult cardiology Acute kidney injury/hypomagnesemia/borderline potassium- Hold spironolactone/HCTZ and valsartan Giving magnesium sulfate 2 g IV for magnesium 1.4- maintain Mg above 2 Given Klor-Con 20 mEq p.o. for potassium of 3.6- maintain K+ above 4 Creatinine 1.74 on admission, with base 1.20 Received normal saline 500 mL from the ED Placed on NSS at 80 mL/h x 1 L Diabetes mellitus/hyperglycemia/hypoglycemia- Hold further Tresiba, metformin, Trulicity Placed on Accu-Cheks with NovoLog SSI Hypoglycemic protocol basal + sliding scale SQ insulin started MDD Started on aripiprazole 2 weeks ago - hold for now Palpations- Normal QT interval on EKG. f/u with outpatient cardiology Admission and Anticipated Discharge Date Admission Date: January 10, 2024 Subjective Patient doing well this morning and would like to go home if possible. No overnight events. Review of Systems Review of Systems: As per HPI. Physical Exam Constitutional: WD/WN, vitals as above Eyes: PERRL, conjunctivae normal, anicteric sclerae Respiratory: normal respiratory effort, lungs clear to auscultation Cardiovascular: RRR, no murmur, no edema Psychiatric: A+Ox3, euthymic affect Results & Data Results & Data Vital Signs (Past 12 Hours) Vital Signs Temp Pulse Pulse Resp BP BP Pulse Ox 01/11/24 03:20 36.5 C 51 L 17 107/63 95 01/11/24 00:00 64 01/10/24 23:15 36.6 C 56 L 17 102/64 95 01/10/24 21:35 58 L 122/75 01/10/24 19:31 36.5 C 61 18 115/70 97 O2 Del Method 01/11/24 03:20 Room Air 01/11/24 00:00 01/10/24 23:15 Room Air 01/10/24 21:35 01/10/24 19:31 Room Air
[2024-01-11] MEDS: MAGNESIUM SULFATE / D5W 1 GM/100 ML BAG IV SCH (10:55)
--- NOTE | 2024-01-11 11:20 | Cardiology Progress Note ---
Date of Service January 11, 2024 Assessment & Plan (1) Syncope and collapse: (2) Left bundle branch block: (3) PSVT (paroxysmal supraventricular tachycardia): (4) PAF (paroxysmal atrial fibrillation): (5) Nonischemic cardiomyopathy: Plan 1. Syncope: His syncopal episode is worrisome, he may not have been totally unconscious since he remembers the fall and remembers being confused afterwards, but the episode was somewhat prolonged. It is certainly possible it was an arrhythmia, more likely bradycardia not tachycardia, but either is possible. He has a history of SVT and atrial fibrillation but does not recall having this type of symptoms when he had it, it is mostly characterized by palpitations. So far no arrhythmia noted to cause his event has been identified, but he has not had recurrent symptoms. I think it is acceptable to go home today, I am going to arrange a 30-day MCOT monitor which I will have him come into the office tomorrow to have set up. He is familiar with this. 2. Left bundle branch block: His left bundle branch block is suggestive of a more serious conduction abnormality and perhaps he had transient heart block causing this episode. We do not know the duration of the left bundle branch block but it was not present in 2020, knowing the duration would not necessarily help us. If we see some amount of heart block (even without symptoms) that may be suggestive as a cause. So far that has not been the case. He has not developed left ventricular dysfunction based on his echocardiogram. 3. SVT: I believe he has some type of SVT, I did not look into that in detail but he did not have symptoms of it so unless his symptoms change that is not likely a cause of his event. 4. Atrial fibrillation: He has had paroxysmal atrial fibrillation but he does not believe this was atrial fibrillation, in the past he has been very aware of it and he is on some degree of rate control. That is not likely to cause syncope. He is not on an anticoagulant since the episodes have mostly resolved and he has not been followed very closely for several years. Perhaps he should be, this could be investigated but with a 30-day monitor we will know if he has atrial fibrillation so I do not see need to start anticoagulation now. 5. Nonischemic cardiomyopathy: He has a history of a cardiomyopathy, I believe it is nonischemic although I do not know the details of that evaluation. His ejection fraction has not been terribly reduced but has been in the 40 to 50% range but now is normal so that may not be contributory. I will arrange outpatient MCOT monitoring through the office, hopefully tomorrow, and a follow-up visit in our office in 6 weeks. He would rather follow with us in [place]. Admission and Anticipated Discharge Date Admission Date: January 10, 2024 Subjective He feels well today, no cardiovascular symptoms since admission. Physical Exam Physical Exam: Constitutional: Alert, cooperative and in no distress. He is overweight. HEENT: Unremarkable Neck: No jugular venous distention, carotid pulses are normal and equal bilaterally without bruits. Pulmonary: Clear to auscultation bilaterally. Cardiac: Regular rhythm with no murmur, gallop or rub. Abdomen: Soft, nontender with normal bowel sounds. Extremities: No edema. Distal pulses intact. Neurologic: No focal findings. Skin: No rash, ecchymoses or petechiae. Results & Data Vital Signs (Past 12 Hours) Vital Signs Temp Pulse Pulse Resp BP BP Pulse Ox 01/11/24 07:39 36.5 C 63 18 111/71 98 01/11/24 03:20 36.5 C 51 L 17 107/63 95 01/11/24 00:00 64 01/10/24 23:15 36.6 C 56 L 17 102/64 95 O2 Del Method 01/11/24 07:39 Room Air 01/11/24 03:20 Room Air 01/11/24 00:00 01/10/24 23:15 Room Air Laboratory Results Cardiac Enzymes 01/10/24 01/11/24 Range/Units 16:20 04:23 AST 17 (13-39) U/L Troponin I High Sens 5.8 (0-20) pg/ml CBC 01/11/24 Range/Units 04:23 WBC 8.14 (4.8-10.8) K/ul RBC 4.89 (4.70-6.10) M/uL Hgb 12.4 L (14.0-18.0) g/dl Hct 36.9 L (42.0-52.0) % Plt Count 177 (130-400) K/uL Neut # (Auto) 3.57 (1.40-6.50) K/uL Lymph # (Auto) 3.74 H (1.20-3.40) K/uL [place] # (Auto) 0.56 (0.11-0.59) K/uL Eos # (Auto) 0.16 (0.00-0.50) K/uL Baso # (Auto) 0.06 (0.00-0.20) K/uL Comprehensive Metabolic Panel 01/10/24 01/11/24 Range/Units 10:36 04:23 Sodium 130 L 134 L (136-145) mmol/L Potassium 3.9 3.7 (3.5-5.1) mmol/L Chloride 102 103 (98-107) mmol/L Carbon Dioxide 20 L 23 (21-32) mmol/L BUN 31 H 21 (6-23) mg/dl Creatinine 1.32 D 1.11 (0.6-1.4) mg/dl Glucose 354 H* 287 H (70-99(Fasting)) mg/dl Calcium 8.1 L 8.5 L (8.6-10.3) mg/dl AST 17 (13-39) U/L ALT 13 (7-52) U/L Alkaline Phosphatase 41 (34-104) U/L Total Protein 6.0 (6.0-8.3) gm/dl Albumin 3.5 3.5 (3.4-5.0) gm/dl Intake and Output 01/10/24 01/11/24 01/11/24 22:59 06:59 14:59 Intake Total 1450 / 2220 450 / 2220 Output Total 301 / 302 Balance 1450 / 1918 149 / 1918 Intake: IV 1000 / 1000 Sodium Chloride 0.9% 1,000 ml @ 1000 / 1000 100 mls/hr IV .Q10H [facility] Rx#: [id number] Oral 450 / 1220 450 / 1220 Output: Urine 300 / 300 # Bowel Movements 1 / 2 Other: # Unmeasured Voids 1 1 Weight 123.105 kg 121.1 kg Weight Measurement Method Standing Scale Standing Scale Diagnostic Findings A repeat electrocardiogram last evening shows sinus rhythm with left bundle branch block, no change. An echocardiogram yesterday shows normal left ventricular function. PG Care Time/CCT Total # of Minutes Spent Total Time Spent with Patient: Total time spent is greater than 50% in coordination of care (as documented) at patient's floor/unit and/or counseling patient: Coding Level of Care Code 13666 SUB INP/OBS CARE 50MIN Diagnoses Syncope and collapse R55 Left bundle branch block I44.7 PSVT (paroxysmal supraventricular tachycardia) I47.1 PAF (paroxysmal atrial fibrillation) I48.0 Nonischemic cardiomyopathy I42.8
--- NOTE | 2024-01-11 12:33 | Discharge Summary ---
Date of Service January 11, 2024 Admission HPI Per Admitting Provider The patient is a 53-year-old male with a past medical history including Chronic diabetes mellitus, ADD, systolic heart failure, PSVT, chronic venous insufficiency, paroxysmal atrial fibrillation, hyperlipidemia, hypertension, nonischemic cardiomyopathy, gastric ulcer, unstable angina and kidney stones. Patient had gotten some lab work done earlier today, and received a call from the on-call physician for reports his glucose was 569. Patient reports that he took 35 units of Tresiba, which he had not taken for several months,, and reports that he had been checking his sugars sporadically over the past few months, and reports that they had high. He presented to the ED, was found to have a glucose of 99 on labs, creatinine was elevated 1.74, WBC was elevated 15.20, and EKG showed new left bundle branch block, all of which prompted referral for evaluation for admission. Admission Exam Per Admitting Provider The patient is awake, alert and oriented 3, well developed and well nourished, normocephalic and atraumatic, lying in bed and in no acute distress. HEENT--PERRL, EOMI, mucous membranes and oropharynx mildly dry. Neck--supple. No JVD. No bruits. Thyroid normal, trachea midline, no adenopathy. Heart--normal S1 and S2. No murmurs, rubs or gallops. Lungs--clear bilaterally, no respiratory distress, no accessory muscle use. Abdomen--normal bowel sounds and soft. Nontender. Nondistended. Obese Extremities--no cyanosis or clubbing. No edema. Dermatologic--normal skin turgor, normal color, no abnormal lymph nodes, no rash. Neurologic--cranial nerves II through XII grossly intact. Rheumatologic--normal range of motion. Psychiatric--normal affect. Principal Diagnosis Syncope Discharge Exam Constitutional WD/WN, vitals as above Eyes PERRL, conjunctivae normal, anicteric sclerae Respiratory normal respiratory effort, lungs clear to auscultation Cardiovascular RRR, no murmur, no edema Gastrointestinal (Abdomen) normal bowel sounds, soft, nontender, no hepatosplenomegaly Psychiatric A+Ox3, euthymic affect Discharge Data Allergies Allergy/AdvReac Type Severity Reaction Status Date / Time shellfish derived Allergy Severe SHORTNESS Verified 01/10/24 03:00 OF BREATH,SWELLING Echinacea Allergy Intermediate hives Verified 01/10/24 03:00 Penicillins Allergy Mild UNKNOWN-WAS Verified 01/10/24 03:00 YRS AGO-HAS TAKEN AMOXICILLIN WITHOUT PROBLEM Consultations 01/10/24 03:56 ED Decision to Admit Stat 01/10/24 04:30 Consult Cardiology Routine Ordered Studies 01/10/24 02:57 CT head/brain wo con Stat Hospital Course (1) Syncope and collapse: Syncope/new LBBB/PAF hx- Main differential is that of hypoglycemia after taking a higher dose of Tresiba, cardiac dysrhythmia, PAF, new left bundle branch block, others Echocardiogram EF 60-65%, Cardiology consulted -possible due to arrhythmia, no arrhythmia identified on telemetry but without recurrent symptoms. -will arrange for 30 day MCOT monitor and follow up. Acute kidney injury/hypomagnesemia/borderline potassium- Creatinine 1.74 on admission, came down to 1.11 before discharge. Held spironolactone/HCTZ and valsartan while inpatient. Resume on discharge Diabetes mellitus/hyperglycemia/hypoglycemia- A1c 15.4, patient had been off Tresiba insulin since seeing PCP in September. Had used Tresiba once before coming to the hospital with glucose coming low to the 90's. Patient will resume metformin and Trulicity when he goes home. Able to take BSG when he goes home. Has short acting insulin and diabetes education on how to dose in case he feels he needs to use. Patient on Abilify but only for 2 weeks, likely not big contributer to A1c. He will call to follow up with PCP office Saturday or early in the week. (2) Mood disorder: (3) Attention deficit disorder (ADD): (4) Type 2 diabetes mellitus with hyperglycemia: (5) Sleep apnea: (6) PAF (paroxysmal atrial fibrillation): (7) Left bundle branch block: (8) Nonischemic cardiomyopathy: (9) Hypertension: Total Time Total Time Spent Total Time Spent (In Minutes): Please see attending attestation. Discharge Plan Discharge Items Patient Disposition: Home - Self-Care Reason For Visit: SYNCOPE, HYPERGLYCEMIA, NEW LBBB, HYPOMAG, AL Discharge Diagnosis: Syncope Activity: Per Instructions section Non-emergency contact: Primary Care Provider and [employer] Teacher Assistant Call non-emergency contact if: your symptoms worsen, your pain is worsening and your temperature is above 101 Follow-up/Referrals: Italo López MD [Primary Care Provider] - Diet: Regular Addtl Attending Provider Instructions: You were seen in the hospital for passing out. You had a change seen on an EKG performed here from the prior ones we have on file. The casework specialist evaluated you and wanted to see how your heart rate looked as well as an ultrasound of your heart. Your ultrasound of the heart was without noticeable abnormalities. At this time the casework specialist recommended wearing a heart monitor outpatient and following up with the results. You will have this heart monitor set up at his office. If you find you are getting lightheaded or dizzy please hold on taking heart or blood pressure medications, check your blood pressure at home if you have a machine, and call your primary care office or the cardiology office. During your hospital stay your glucose levels were found to be elevated to the 300's. However when you came in they were in the low 100's after you took Tresiba. Please be sure to monitor your glucose closely at home with morning glucose and mealtime glucose levels. If you find that your glucose is not able to be controlled (persists above 350) please come back to the ER. Please try to follow up with your PCP office as soon as you can (Saturday or early this coming week) regarding the management of your diabetes. Hold off on taking the Tresiba until you can see your PCP again, if you will be using fast acting insulin that you have for hyperglycemia please follow the instructions given to you by the art educator when you were outpatient. Pending Studies at Discharge: No Stand-Alone Forms: My [facility] ezeep, Smoking Cessation Medications and DC Order Prescriptions: Continued metformin 1,000 mg tablet 1,000 mg PO BID 90 Days Qty: 180 3RF carvedilol 12.5 mg tablet 12.5 mg PO TID Qty: 270 0RF valsartan 80 mg tablet 80 mg PO BID Qty: 180 0RF spironolacton-hydrochlorothiaz 25-25 mg tablet 1 tab PO BID Qty: 180 0RF aripiprazole [Abilify] 5 mg tablet 5 mg PO HS albuterol sulfate 90 mcg/actuation HFA aerosol inhaler 2 puff inhalation Q6H PRN (Reason: shortness of breath or wheezing) Qty: 6.7 0RF Trintellix 20 mg tablet 20 mg PO DAILY hydroxyzine HCl 25 mg tablet 25 mg PO BID PRN (Reason: Anxiety) (DME) FreeStyle Nataliia 3 Sensor Device See Rx Instructions .Route Qty: 2 11RF Rx Instructions: As directed pantoprazole [Protonix] 40 mg tablet,delayed release (DR/EC) 40 mg PO DAILY Qty: 90 3RF atorvastatin 10 mg tablet 10 mg PO HS Qty: 90 3RF (DME) Dexcom G7 Contract Paralegal Misc See Rx Instructions .ROUTE Qty: 1 0RF Rx Instructions: As directed (DME) Dexcom G7 Sensor Device See Rx Instructions .ROUTE Qty: 3 3RF Rx Instructions: As directed ergocalciferol (vitamin D2) [Vitamin D2] 1,250 mcg (50,000 unit) capsule 1,250 mcg PO 2XWK Trulicity 4.5 mg/0.5 mL pen injector 4.5 mg subcut WK Held insulin degludec [Tresiba FlexTouch U-100] 100 unit/mL (3 mL) insulin pen 30 unit subcut DAILY Qty: 15 11RF Hold Instructions: Resume on 01/27/24. Please hold on taking this prescribed insulin until you see your PCP. Discharge Orders: Discharge Order (Routine); Ordered 01/11/24 Ordered By: Adin Harris Admission Data Admit Date/Time: 01/10/24 04:25 Attending Provider: Veronique Turner Admit Provider: Yonis Medina Primary Care Provider: Italo López Other Providers: Yonis Medina; William Garcia Other Interventions: Discharge Summary Assessment (RN) Last Done: 01/11/24 14:06 Supervising Physician Co-Signing Physician Notes Attending Physician Supervision Note: I independently interviewed and examined the patient and verified the downey histo ry and physical, reviewed labs and image studies and agree with findings and care plan noted above. Syncope - concern of hypoglycemia from insulin. Orthostatics neg. no arrhythmia noted during hospital stay. Was bradycardic though. New LBBB noted. -Does have h/o PAF, PSVT. -Echo - Normal EF. -evaluated by cardio -outpatient event monitor will be arranged. Sinus bradycardia - coreg doses held initially, but resumed on discharge. should have further outpatient f/u. consider cutting down the dose. AL - resolved. MDD - recently started on aripiprazole 2 wks ago. Normal QTc. No orthostasis. Held on admission - Resumed on discharge DM - on trulicity, metformin and Tresiba. A1c 15. Tresiba held during hospital stay for concern of hypoglycemia. -Was instructed to use log insulin with meal coverage and continue Trulicity and metformin. -message sent to PCP via [employer] to follow up for adding of long acting insulin with ? 24 hours duration of action instead of Tresiba. -was instructed in adherence with dietary modifications. Resident Activity Tracking Resident Involvement: Resident Care Provided Care Provided: Adult Hospital Medicine
--- NOTE | 2024-01-12 21:40 | Electrocardiogram Report ---
Test Reason : Blood Pressure : / mmHG Vent. Rate : 064 BPM Atrial Rate : 064 BPM P-R Int : 164 ms QRS Dur : 126 ms QT Int : 426 ms P-R-T Axes : 034 -62 026 degrees QTc Int : 439 ms Normal sinus rhythm Left bundle branch block Abnormal ECG When compared with ECG of 10-JAN-2024 02:59, (unconfirmed) No significant change was found Confirmed by William Garcia ([id number]) on 01/12/2024 9:40:27 PM Referred By: REFERRED SELF Confirmed By:William Garcia
--- NOTE | 2024-01-12 21:40 | Electrocardiogram Report ---
Test Reason : Blood Pressure : / mmHG Vent. Rate : 068 BPM Atrial Rate : 068 BPM P-R Int : 162 ms QRS Dur : 130 ms QT Int : 432 ms P-R-T Axes : 029 -64 050 degrees QTc Int : 459 ms Normal sinus rhythm Left bundle branch block Abnormal ECG When compared with ECG of 16-DEC-2020 15:56, Vent. rate has decreased BY 34 BPM Left bundle branch block is now Present Confirmed by William Garcia ([id number]) on 01/12/2024 9:40:02 PM Referred By: REFERRED SELF Confirmed By:William Garcia
--- NOTE | 2024-01-12 22:06 | Electrocardiogram Report ---
Test Reason : Blood Pressure : / mmHG Vent. Rate : 071 BPM Atrial Rate : 071 BPM P-R Int : 170 ms QRS Dur : 130 ms QT Int : 414 ms P-R-T Axes : 112 240 161 degrees QTc Int : 449 ms Arm lead reversal Normal sinus rhythm Non-specific intra-ventricular conduction block Abnormal ECG When compared with ECG of 10-JAN-2024 04:10, (unconfirmed) No significant change Taking into account lead reversal Confirmed by William Garcia ([id number]) on 01/12/2024 10:06:37 PM Referred By: REFERRED SELF Confirmed By:William Garcia
== END 2024-01-11 16:30 | disposition home or self-care (01) | DRG 312 ==
LOC: ED 02:47 → SUATTDRO 04:25 → EDINP 04:25 → 4W 16:12